=== PATIENT | female | born 1955 | race Caucasian/White ===

== ENCOUNTER → 2017-08-27 10:00 | Outpatient (CLI) | payer OTHER, SELFPAY ==
[2017-08-27 11:42] LABS: Anion Gap 6 (5-15); BUN 17 mg/dL (7-18); BUN/Creat Ratio 23.9 RATIO (10-20); Calcium,Total 9.9 mg/dL (8.5-10.1); Chloride 105 mmol/L (98-107); Creatinine, Serum 0.71 mg/dL (0.55-1.02); EST Glomerular Filtration Rate 88 mL/min (>60); Est Glom Filt Rate - Afr Amer 107 mL/min (>60); Glucose 102 mg/dL (74-106); Sodium Level 141 mmol/L (136-145); Thyroid Stim Hormone (TSH) 0.89 uIU/mL (0.358-3.74)
[2017-08-31 14:07] LABS: Epinephrine, Pl <15 pg/mL (0-62); Norepinephrine, Pl 764 pg/mL (0-874)
[2017-09-01 17:24] LABS: Dopamine, Pl <30 pg/mL (0-48)
== END ==
PROVIDERS: Family Provider Family Medicine; PCP Family Medicine; Visit Provider Internal Medicine Cardiovascular Disease
DX: R00.2 Palpitations (principal)
CPT/HCPCS: 36415; 80048; 82384; 84443

== ENCOUNTER 2017-10-13 00:53 | Emergency (ER) | payer OTHER, SELFPAY ==
[2017-10-13 00:54] VITALS: BP 119/58; PULSE 72; RESP 16; TEMP 36.8; O2SAT 100; BMI 18.0
--- NOTE | 2017-10-13 01:35 | ED.VISSUMM ---
- ER Visit Summary Date of Service: 10/13/17 Chief Complaint: Bites History of Present Illness: The patient is a 62 F with insect bites. The patient has one on her right proximal forearm associate with a bruise and muscle pain. There is also a smaller one on her left forearm and one on her left upper arm. The one in her upper arm has been there for months. No fever or systemic symptoms. She did feel a bug on her right forearm yesterday and it rolled away, but she never felt a bite. Physical Examination: Vital signs unremarkable. Patient has a hematoma and tenderness to her right proximal forearm about the size of a half dollar. She also has erythema to her left upper arm about the size of a dime. She is neurovascular intact distally. There are no other pertinent findings. Test Results: None indicated Emergency Department Course and Treatment: No indication for antibiotics. Nothing to suggest Lyme disease. The patient has a hematoma. She denies any injuries or muscle injuries. She did notice an insect. We will treat with a burst of prednisone to help with the discomfort. She may use [id number] remedies for pain. Follow-up with primary care. Return for any new or worsening issues. Treatment Plan: As above Disposition: Discharged Impression: 1. Insect bites to bilateral arms This note was generated with [facility] dictation software. It may contain incorrect words, spelling, and punctuation that were not noted in review of the chart prior to signing ED Disposition - Plan for ED Patient: Chief Complaint: Bite Referrals: Min Pugh MD [Primary Care Provider] -
--- NOTE | 2017-10-13 01:38 | ED.DCSUM_ITS ---
- ER Visit Summary Date of Service: 10/13/17 Chief Complaint: Bites History of Present Illness: The patient is a 62 F with insect bites. The patient has one on her right proximal forearm associate with a bruise and muscle pain. There is also a smaller one on her left forearm and one on her left upper arm. The one in her upper arm has been there for months. No fever or systemic symptoms. She did feel a bug on her right forearm yesterday and it rolled away, but she never felt a bite. Physical Examination: Vital signs unremarkable. Patient has a hematoma and tenderness to her right proximal forearm about the size of a half dollar. She also has erythema to her left upper arm about the size of a dime. She is neurovascular intact distally. There are no other pertinent findings. Test Results: None indicated Emergency Department Course and Treatment: No indication for antibiotics. Nothing to suggest Lyme disease. The patient has a hematoma. She denies any injuries or muscle injuries. She did notice an insect. We will treat with a burst of prednisone to help with the discomfort. She may use [id number] remedies for pain. Follow-up with primary care. Return for any new or worsening issues. Treatment Plan: As above Disposition: Discharged Impression: 1. Insect bites to bilateral arms This note was generated with [employer] dictation software. It may contain incorrect words, spelling, and punctuation that were not noted in review of the chart prior to signing ED Disposition - Plan for ED Patient: Chief Complaint: Bite Referrals: Min Pugh MD [Primary Care Provider] -
--- NOTE | 2017-10-13 01:38 | ED.DEP ---
ED Disposition - Plan for ED Patient: Chief Complaint: Bite Instructions: ED Bite Sting Insect Gen Allergic React Prescriptions: Prednisone 40 mg PO DAILY #16 tab Referrals: Min uPgh MD [Primary Care Provider] -
[2017-10-13] MEDS: predniSONE 20 MG Tablet 40 MG PO (01:45)
[2017-10-13 02:19] VITALS: RESP 16
== END 2017-10-13 02:22 | disposition home or self-care (01) ==
PROVIDERS: Emergency Provider Emergency Medicine; Family Provider Family Medicine; PCP Family Medicine
DX: S50.862A Insect bite (nonvenomous) of left forearm, initial encounter (principal); S50.861A Insect bite (nonvenomous) of right forearm, initial encounter; K21.9 Gastro-esophageal reflux disease without esophagitis; Z79.899 Other long term (current) drug therapy; W57.XXXA Bitten or stung by nonvenomous insect and other nonvenomous arthropods, initial encounter; Y93.89 Activity, other specified; Y92.89 Other specified places as the place of occurrence of the external cause; Y99.8 Other external cause status
CPT/HCPCS: 99283

== ENCOUNTER 2017-10-23 16:40 | Emergency (ER) | payer OTHER, SELFPAY ==
[2017-10-23 16:42] VITALS: BP 155/78; PULSE 83; RESP 16; TEMP 36.4; O2SAT 97; BMI 18.1
--- NOTE | 2017-10-23 17:01 | ED.VISSUMM ---
- ER Visit Summary Date of Service: 10/23/17 Chief Complaint: Concern for tetanus exposure History of Present Illness: The patient is a 62 F who is otherwise healthy presents to the emergency department due to concern for tetanus exposure. The patient has been vaccinated against tetanus. She did have a 3 injection series in 2011. The patient states that she was actually seen here about a week ago. At that time, she is working out in her garden at night. She was bit by something and thought that it may have been a mosquito. She had a local reaction. She did follow up with Dr. Pugh, but her symptoms really not improved. They were concerned that she may have had bad exposure. She is here for tetanus prophylaxis. She denies any symptoms. She is otherwise healthy. Physical Examination: Vital signs reviewed General: Well-nourished, well-developed Head: Normocephalic, atraumatic Eyes: Pupils equal and reactive, extraocular muscles intact Neck, supple, no lymphadenopathy Heart: Regular rate and rhythm Respiratory: No distress, clear bilaterally Abdomen: Soft, nontender, nondistended, no peritoneal signs Back: Nontender Extremities: Mild erythema with ecchymosis on the dorsum of the right forearm. No skin breakdown, no edema, no cords Skin: Normal color no rash Neuro: Alert and oriented, no focal or lateralizing deficits Test Results: [] Emergency Department Course and Treatment: The patient will be started on rabies prophylaxis. She has already been vaccinated so she will just need 2 doses. She is given her first dose here and will be brought back on Thursday for the second dose. She is totally asymptomatic. Patient is comfortable this plan of care and will be discharged home. Treatment Plan: [] Disposition: Discharge Impression: 1. Rabies prophylaxis This note was generated with [employer] dictation software. It may contain incorrect words, spelling, and punctuation that were not noted in review of the chart prior to signing ED Disposition - Plan for ED Patient: Chief Complaint: Other, Pain/Inj Instructions: Rabies Immune Globulin (Human) Solution for injection Prescriptions: Rabies Vacc, Human Diploid/Pf [Imovax Rabies Vaccine Vial] 2.5 unit IM X1 #1 vial Tetanus Immune Globulin/Pf [Hypertet S-D 250 Unit Syringe] 250 unit IM X1 #1 syringe Referrals: Min Pugh MD [Primary Care Provider] -
[2017-10-23] MEDS: Rabies Vaccine,Human Diploid 2.5 UNITS Vial IM (18:38)
== END 2017-10-23 18:45 | disposition home or self-care (01) ==
PROVIDERS: Emergency Provider Emergency Medicine; Family Provider Family Medicine; PCP Family Medicine
DX: Z20.3 Contact with and (suspected) exposure to rabies (principal); Z23 Encounter for immunization; S50.11XA Contusion of right forearm, initial encounter; X58.XXXA Exposure to other specified factors, initial encounter; Y93.9 Activity, unspecified; Y92.9 Unspecified place or not applicable
CPT/HCPCS: 90375; 90675; 96372; 99282; J1670

== ENCOUNTER → 2017-10-26 17:21 | Outpatient (CLI) | payer OTHER, SELFPAY ==
[2017-10-26 16:32] VITALS: BP 129/71; PULSE 83; RESP 16; TEMP 36.3; BMI 18.1
[2017-10-26] MEDS: Rabies Vaccine,Human Diploid 2.5 UNITS Vial IM (17:12)
[2017-10-26 17:17] VITALS: BP 129/74; PULSE 83; RESP 16; TEMP 36.3; BMI 18.1
== END ==
PROVIDERS: Family Provider Family Medicine; PCP Family Medicine; Visit Provider Emergency Medicine
DX: Z23 Encounter for immunization (principal)
CPT/HCPCS: 90675; 96372

== ENCOUNTER → 2018-03-17 13:27 | Outpatient (CLI) | payer OTHER, SELFPAY ==
--- NOTE | 2018-03-17 13:40 | RAD_ITS ---
STUDY: X-RAY - RIGHT HIP REASON FOR EXAM: Female, 62 years old. Trochanteric bursitis TECHNIQUE: 2 views of the hip. AP pelvis COMPARISON: None. FINDINGS: Pelvic ring is intact. Visualized left hip is unremarkable. There are vascular phleboliths of the left hemipelvis. Normal femoral head, neck, intertrochanteric region and visualized proximal femur. Normal acetabulum. Normal hip joint. Normal visualized superior and inferior pubic rami and ischial tuberosities. RAD/HIP, UNI W/ Pelvis 2-3 Views IMPRESSION: Normal x-ray examination of the right hip. Electronically Signed: Jeremiah Servin MD at 8:11 EST , Service support ,
== END ==
PROVIDERS: Family Provider Family Medicine; PCP Family Medicine; Referring Provider Family Medicine; Visit Provider Family Medicine
DX: M70.61 Trochanteric bursitis, right hip (principal)
CPT/HCPCS: 73502

== ENCOUNTER → 2018-08-10 | Outpatient (CLI) | payer OTHER, SELFPAY ==
[2018-08-10 13:32] LABS: AST(SGOT) 24 U/L (15-37); Alanine Aminotransfer ALT/SGPT 24 U/L (13-56); Alkaline Phosphatase 90 U/L (45-117); Bilirubin, Direct 0.17 mg/dL (0.00-0.30); Cholesterol 180 mg/dL (200); Globulin 3.4 g/dL (2.2-4.2); High Density Lipoprotein 78 mg/dL; Protein, Total 7.4 g/dL (6.4-8.2); Triglycerides 76 mg/dL; Very Low Density Lipoprotein 15 mg/dL (5-40)
== END | disposition home or self-care (01) ==
LOC: LAB 11:43
PROVIDERS: Family Provider Family Medicine; PCP Family Medicine; Referring Provider Internal Medicine Cardiovascular Disease; Visit Provider Internal Medicine Cardiovascular Disease
DX: R00.2 Palpitations (principal); Z82.49 Family history of ischemic heart disease and other diseases of the circulatory system
CPT/HCPCS: 36415; 80061; 80076

== ENCOUNTER → 2018-09-01 14:19 | Outpatient (CLI) | payer OTHER, SELFPAY ==
[2018-08-12 15:12] VITALS: BMI 18.4
[2018-09-01 14:46] VITALS: BP 111/55; PULSE 73; RESP 18; O2SAT 100; BMI 17.7
--- NOTE | 2018-09-01 14:51 | CT_ITS ---
STUDY: CT CHEST WITHOUT CONTRAST REASON FOR EXAM: Female, 63 years old. Chest pain. Calcium scoring examination. Radiology over read examination. RADIATION DOSAGE (If Supplied By Facility): CTDIvol = ( 24.64 ) mGy, DLP = ( 1046.17 ) mGycm TECHNIQUE: Transaxial imaging was performed without the administration of intravenous contrast material. Individualized dose optimization techniques were used for this CT. COMPARISON: Comparison is made with prior examination dated March 13, 2014. FINDINGS: Minimal increased markings at the lung bases suggestive of mild bibasilar scarring. There is no demonstrated pleural abnormality. Normal heart and pericardium. Normal mediastinum. Normal hilar regions. Normal unenhanced pulmonary arteries. Normal aorta arch and descending thoracic aorta. There are degenerative changes of the thoracic spine. There is no demonstrated abnormality of the visualized upper abdomen. CT/Limited Chest CT w/CCTA IMPRESSION: Findings suggestive of mild scarring at the lung bases. Electronically Signed: Leo Hagen, at 8:45 EDT , Service support ,
[2018-09-01 15:11] LABS: CREATININE FINGERSTICK 0.9 mg/dL (0.55-1.02); EGFR FINGERSTICK > 60.0000 mL/min (>60)
[2018-09-01] MEDS: 0.9% Saline Lock 10 ML Syringe IV (15:18)
[2018-09-01] MEDS: Nitroglycerin SL (ED/IMG/CATH) 0.4 MG TABLET SUBLINGUAL (15:20)
[2018-09-01 15:48] VITALS: BP 126/76; PULSE 61; RESP 16; O2SAT 100
--- NOTE | 2018-09-01 15:52 | NURSING ---
pt alert, still head headache, but states it is tolerable. pt walked out with significant other.
--- NOTE | 2018-09-01 16:55 | CA.SCORE ---
Calcium Scoring Date of Study:: 09/01/18 Coronary Calcium Scoring: High-resolution Computed Tomographic imaging of the chest was performed on [ ], with particular attention paid to the coronary arteries. Images from the examination were analyzed for the presence and extent of coronary artery calcification , using coronary calcium quantification software. The patient tolerated the procedure well and there were no complications. The results of the coronary calcification analysis are provided below. - Findings Left Main (LM): 0 Left Anterior Descending (LAD): 0 Left Circumflex (LCX): 0 Right Coronary Artery (RCA): 0 Total Agatston Score: 0 Percentile Rankin - Conclusion Calcium Scoring Interpretation: Calcium Score Interpretation 0 No identifiable atherosclerotic plaque. Very low cardiovascular disease risk. <5% chance of presence coronary artery disease A Negative Examination 1-10 Minimal Plaque burden. Significant coronary artery disease very unlikely. 11-100 Mild plaque burden. Likely mild or minimal coronary atherosclerosis. 101-400 Moderate plaque burden Moderate non-obstructive coronary artery disease highly likely. Over 400 Extensive plaque burden. High likelihood of at least one significant coronary stenosis (>50% diameter) Calcium Score: 0 Negative Examination - The above is suggestive of no significant atherosclerotic plaquing. Full evaluation of cardiac risk should include assessment of all conventional risk factors as well.
--- NOTE | 2018-09-01 17:28 | CCTA.WCONT ---
CCTA w/Cont Coronary Arteries Date of Study:: 09/01/[address] angiogram: The patient was brought to the radiology suite in the postabsorptive nonsedated state. The patient was administered sublingual nitroglycerin and then 100 cc of intravenous Isovue was injected. Particular attention was paid to the coronary arteries via gating. Images were then reconstructed into a 0.625 mm slices and reconfigured. Patient tolerated the procedure well. Results: Left main coronary artery: The left main coronary artery arose out of the left coronary cusp and trifurcates into the left anterior descending artery, ramus intermedius and left anterior descending artery. No significant stenosis or calcification was noted in this vessel. Left anterior descending artery: The left anterior descending artery was a medium sized vessel with no significant calcification or obstructive plaquing noted. Ramus intermedius: The ramus intermedius was a medium size vessel with no significant atherosclerotic plaquing all calcification noted. Left circumflex artery: Left circumflex artery was a nondominant vessel with no significant calcification or atherosclerotic plaquing noted. Right coronary artery: The right coronary artery was a large dominant vessel bifurcating to the posterior descending artery and posterolateral vessel with no significant stenosis noted. Coronary calcium score equals [address] angiogram demonstrating no obstructive coronary artery disease and a calcium score of 0. The above suggests minimal cardiac atherosclerosis and risk. LEFT MAIN CORONARY ARTERY: [] LEFT ANTERIOR DESCENDING CORONARY ARTERY: [] LEFT CIRCUMFLEX CORONARY ARTERY: [] RIGHT CORONARY ARTERY: [] THORACIC AORTA: [] PULMONARY ARTERY: [] LEFT ATRIUM/APPENDAGE: [] MITRAL VALVE: [] AORTIC VALVE: [] LEFT VENTRICLE: [] CORONARY CALCIUM SCORE: []
== END ==
PROVIDERS: Family Provider Family Medicine; PCP Family Medicine; Referring Provider Internal Medicine Cardiovascular Disease; Visit Provider Internal Medicine Cardiovascular Disease
DX: R07.9 Chest pain, unspecified (principal); Z82.49 Family history of ischemic heart disease and other diseases of the circulatory system
CPT/HCPCS: 75571; 75574; 76380; Q9967; A4216

== ENCOUNTER → 2019-02-16 | Outpatient (CLI) | payer OTHER, SELFPAY ==
[2018-09-01 14:46] VITALS: BMI 17.7
--- NOTE | 2019-02-16 08:26 | BD_ITS ---
STUDY: DUAL ENERGY X-RAY ABSORPTIOMETRY / DXA REASON FOR EXAM: Female, 63 years old. The patient is postmenopausal. Loss of height. TECHNIQUE: Bone Mineral Density (BMD) measurements of lumbar spine and bilateral hips were obtained. COMPARISON: None. FINDINGS: Lumbar Spine (L1-L4): g/cm2 (0.752) / T-score (-3.6) / Z-score (-2.0) Findings are suggestive of osteoporosis with a high fracture risk. Left Femur Total: g/cm2 (0.643) / T-score (-2.9) / Z-score (-1.7) Left Femoral Neck: g/cm2 (0.611) / T-score (-3.1) / Z-score (-1.6) Right Femur Total: g/cm2 (0.662) / T-score (-2.7) / Z-score (-1.6) Right Femoral Neck: g/cm2 (0.70 to) / T-score (-2.4) / Z-score (-1.0) BD/Dexa Bone Density Study IMPRESSION: The patient is considered osteoporotic as outlined below according to World Edwin Organization (WHO) criteria with a high fracture risk. Reference Information: The T-score is the number of standard deviations above or below the standard which is normal for young adults at their peak bone mineral density. The World Health Organization (WHO) interprets the T-scores as follows: Above -1 Normal bone density Between -1 and -2.5 Osteopenia Equal to / or below -2.5 Osteoporosis As a practical clinical guideline, osteopenia may be graded as follows: Mild -1 through -1.5 Moderate -1.6 through -2.0 Severe -2.1 through -2.4 The Z-score is the number of standard deviations above or below age-matched controls. A Z-score of less than -1.5 would be considered abnormal. References: 1. NIH Osteoporosis and Related Bone Diseases http://www.osteo.org 2. International Society for Clinical Densitometry http://www.iscd.org 3. National Osteoporosis Foundation http://www.nof.org Electronically Signed: Leo Hagen, at 9:56 EDT , Service support ,
== END | disposition home or self-care (01) ==
LOC: OPBD 08:21
PROVIDERS: Family Provider Family Medicine; PCP Family Medicine; Referring Provider Family Medicine; Visit Provider Family Medicine
DX: M81.0 Age-related osteoporosis without current pathological fracture (principal)
CPT/HCPCS: 77080

== ENCOUNTER 2019-04-07 14:48 | Observation (INO) | payer OTHER, SELFPAY ==
[2018-09-01 14:46] VITALS: BMI 17.7
[2019-04-07] VITALS (7 sets, daily range): BP systolic 116–152; BP diastolic 68–93; PULSE 63–81; RESP 16–20; TEMP 36.4; O2SAT 95–100; BMI 17.4; BMI 16.9
--- NOTE | 2019-04-07 15:09 | EKG12_ITS ---
Test Reason : UPPER EXEMITRY Blood Pressure : / mmHG Vent. Rate : 061 BPM Atrial Rate : 061 BPM P-R Int : 128 ms QRS Dur : 080 ms QT Int : 402 ms P-R-T Axes : 063 027 051 degrees QTc Int : 404 ms Normal sinus rhythm Low voltage QRS Cannot rule out Anterior infarct (cited on or before 21-JUN-2003) Abnormal ECG Confirmed by CHARISSA ANDERSON, FITO ([id number]), make up editor MIKE STEWART ([id number]) on 04/11/2019 11:37:05 AM Referred By: JOESPH Confirmed By:FITO CARRINGTON MD
--- NOTE | 2019-04-07 15:12 | ED.VISSUMM ---
- ER Visit Summary Date of Service: 04/07/19 Chief Complaint: Left arm pain History of Present Illness: The patient is a 63 F presenting with intermittent left arm pain. She states this has been intermittent for the past 2 days. She has had left shoulder pain radiating to her left arm. No pain with range of motion. She has associated dizziness and diaphoresis. She has mild shortness of breath. She denies chest pain. She had no syncope. She has nausea with no vomiting. She has family history of early heart disease, no other CAD risk factors. Physical Examination: Vitals are stable. Patient is afebrile. Alert no acute distress. HEENT exam is unremarkable. Neck is supple. Lungs are clear and equal bilaterally. Heart is regular rate and rhythm. Abdomen is soft nontender nondistended. Extremities are unremarkable. Skin is warm and dry. No focal neurologic deficit. Remainder of exam is unremarkable. Emergency Department Course and Treatment: Patient was given aspirin. EKG is sinus rhythm rate of 61 with no acute ischemic changes. Chest x-ray shows no acute process. CBC, chemistries unremarkable. Troponin is negative. On reevaluation, patient is chest pain-free. She is concerned that these symptoms may be anginal equivalent. Discussed with the hospitalist for observation. Disposition: Observation Impression: Left arm pain This note was generated with [employer] dictation software. It may contain incorrect words, spelling, and punctuation that were not noted in review of the chart prior to signing ED Disposition - Plan for ED Patient:
--- NOTE | 2019-04-07 15:13 | NURSING ---
NO OLD EKGS
--- NOTE | 2019-04-07 15:20 | RAD_ITS ---
STUDY: X-RAY CHEST REASON FOR EXAM: Female, 63 years old. Chest pain and shoulder pain. TECHNIQUE: Single AP portable view of the chest. COMPARISON: None. FINDINGS: EKG wires are seen. Hyperinflation. The lungs are clear. There is no demonstrated pleural abnormality. Normal size heart. Normal mediastinum and see. Normal visualized pulmonary arteries. Normal visualized aortic arch and descending thoracic aorta. There are mild degenerative changes of the visualized thoracic spine. Normal visualized ribs, clavicles, and shoulders. There is no demonstrated abnormality of the visualized soft tissue structures of the upper abdomen. RAD/Chest 1 View (Portable) IMPRESSION: Normal x-ray examination of the chest. Electronically Signed: Leo Hagen, at 15:38 EST , Service support ,
[2019-04-07] MEDS: Aspirin 81 MG TAB.CHEW 324 MG PO (15:28)
[2019-04-07 15:34] LABS: Absolute Lymphocyte Count 2.32 X10^3/uL (0.83-4.51); Basophil# 0.07 X10^3/uL; Basophil% 0.7 % (0-1); Eosinophil# 0.19 X10^3/uL; Hematocrit 41.5 % (37-47); Hemoglobin 13.7 g/dL (12.0-15.0); Lymphocyte # 2.32 X10^3/ul (4.0); Lymphocyte % 24.7 % (19-41); Mean Corpuscular Hgb 29.6 pg (27.0-32.0); Mean Corpuscular Volume 89.6 fL (81-99); Mean Platelet Vol. 8.6 fl (6.2-12.0); Monocyte# 0.83 X10^3/uL; Monocyte% 8.8 % (0-10); NRBC Flagged by Analyzer 0 % (0-5); Neutrophil # 5.96 X10^3/uL (2.7-7.7); Neutrophil % 63.5 % (47-70); Platelet Count 341 K/mm3 (150-450); RBC Distribution Width CV 12.8 % (11.6-14.6); RBC Distribution Width SD 41.5 fl (35.1-43.9); Red Blood Count 4.63 M/mm3 (4.2-5.4); White Blood Count 9.4 K/mm3 (4.4-11.0)
[2019-04-07 16:11] LABS: Anion Gap 3 (5-15); BUN 16 mg/dL (7-18); BUN/Creat Ratio 21.3 RATIO (10-20); Calcium,Total 9.8 mg/dL (8.5-10.1); Chloride 108 mmol/L (98-107); Creatinine, Serum 0.75 mg/dL (0.55-1.02); EST Glomerular Filtration Rate 82 mL/min (>60); Est Glom Filt Rate - Afr Amer 100 mL/min (>60); Estimated Creatinine Clearance 56.82 ml/min; Glucose 88 mg/dL (74-106); Potassium 3.9 mmol/L (3.5-5.1); Sodium Level 141 mmol/L (136-145)
--- NOTE | 2019-04-07 17:21 | CT_ITS ---
STUDY: CTA HEAD AND NECK WITH CONTRAST REASON FOR EXAM: Female, 63 years old. Headache RADIATION DOSAGE (If Supplied By Facility): CTDIvol = ( 23.18 ) mGy, DLP = ( 1189.91 ) mGycm TECHNIQUE: CT angiography was performed with a multi-detector CT scanner. Data acquisition was obtained from the skull base through the vertex following intravenous administration of [id number] [id number]. MIP images were reconstructed from the axial data set. Post-processing of the angiographic images was performed, with multiplanar reformation and 3D reconstruction. Individualized dose optimization techniques were used for this CT. COMPARISON: No relevant priors. FINDINGS: Normal bilateral petrous carotid arteries. Normal right cavernous carotid artery with a normal supraclinoid bifurcation. Normal left cavernous carotid artery with a normal supraclinoid bifurcation. Normal right A1 segments of the anterior cerebral artery. Normal left A1 segments of the anterior cerebral artery. Normal intact anterior communicating artery (ACOM). Normal bilateral A2 segments of the anterior cerebral arteries. Normal right M1 and M2 segments of the middle cerebral arteries, with a normal M1 bifurcation. Normal left M1 and M2 segments of the middle cerebral arteries, with a normal M1 bifurcation. Nonvisualization of the posterior communicating arteries (PCOM). Normal bilateral vertebral arteries. Normal basilar artery with a normal basilar bifurcation. The visualized bilateral superior cerebellar (SCA) arteries are normal. Normal bilateral P1, P2 and visualized P3 segments of the posterior cerebral arteries. There is no demonstrated aneurysm of the [place] of [place]. There is no demonstrated abnormality of the visualized brain. AORTIC ARCH: Normal visualized aortic arch. Normal origins of the brachiocephalic, left common carotid, and left subclavian arteries. RIGHT CAROTID ARTERIES: Normal right common carotid artery (CCA). Normal right common carotid bulb. Normal origin of the right internal carotid (ICA) artery without a hemodynamically significant stenosis. Normal visualized cervical portion of the right internal carotid artery. Normal origin of the right external carotid artery (ECA). LEFT CAROTID ARTERIES: Normal left common carotid artery (CCA). Normal left common carotid bulb. Normal origin of the left internal carotid (ICA) artery without a hemodynamically significant stenosis. Normal visualized cervical portion of the left internal carotid artery. Normal origin of the left external carotid artery (ECA). VERTEBRAL ARTERIES: Normal bilateral vertebral arteries. CT/CTA Head AND Neck W/ Contrast IMPRESSION: Normal CTA Head and neck with contrast. Electronically Signed: Rocky Tse DO at 19:53 EST Tel [phone], Service support ,
--- NOTE | 2019-04-07 17:40 | PCM.HP.STD ---
<Lamont Yates - Last Filed: 04/07/19 17:40> Problem List (1) Left arm numbness Status: Acute (2) Migraine Status: Chronic (3) Osteoporosis Status: Chronic History of Present Illness Date of Admission: 04/07/19 Chief Complaint: Left arm numbness The patient is a 63 year old F with a hx of migraine and osteoporosis who presented to the ER with c/o left sided shoulder blade pain with radiation into the left arm, and numbness of the left arm. She has had these symptoms since thursday. They happen in the morning and resolved by noon, however today they did not go away and were worse, prompting her to go to the ER. She also had lightheadedness and heavy sweats during these episodes. She has also had migraines increasing in frequency and recently states she had the worst headache of her life. She currently has a dull pain in the BL temples. Sometimes she has light sensitivity, nausea, and visual disturbances with her migraines. She does not see a neurologist and self treats with advil and caffeine. She and her also report severe stress over the past two months. She denies any chest pain or SOB. She follows Dr. Varner because she has a family hx of her dad dying suddenly without warning of a heart attack, and a brother who had an NV at 54. She had a negative stress 3 years ago, and had a coronary CTA earlier this year which she states was normal. [] Past Medical History Past Medical History (Chronic Problems): Chronic Problems (Last Reviewed 08/12/18 @ 15:45 by Raj Varner MD) Osteoporosis (Chronic) Migraine (Chronic) Family history of coronary artery disease (Chronic) Palpitations (Chronic) Medical History: Medical History (Last Reviewed 08/12/18 @ 15:45 by Raj Varner MD) Family history of coronary artery disease (Chronic) Z82.49 Palpitations (Chronic) R00.2 Anxiety F41.9 IBS (irritable bowel syndrome) K58.9 Allergies Penicillins Adverse Reaction (Verified 04/07/19 14:49) rash sulfamethoxazole [From Bactrim] Adverse Reaction (Verified 04/07/19 14:49) rash trimethoprim [From Bactrim] Adverse Reaction (Verified 04/07/19 14:49) rash Home Medications: Ambulatory Orders Medication Instructions Recorded calcium carbonate 500 mg calcium 1,000 mg PO DAILY tab 08/12/18 (1,250 mg) chewable tablet Alendronate Sodium [Fosamax] 70 mg PO TU 04/07/19 Cholecalciferol (VIT D3) [Vitamin 1,000 - 2,000 unit PO DAILY 04/07/19 D] Ibuprofen [Advil] 400 mg PO DAILY PRN PRN 04/07/19 Surgical History: no surgical history Psychiatric History: 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 Denies: Chest Pain, Chest Pressure, Chest Tightness, Edema, Heaviness, Palpitations Respiratory: Denies: Cough, Shortness of breath at rest, Sputum production Gastrointestinal: Denies: Abdominal Pain, Nausea, Vomiting Genitourinary: Denies: Dysuria Musculoskeletal: Denies: Joint Pain, Joint Tenderness Skin: Denies: Rash, Wounds Neurological: Reports: Headaches, Numbness - left arm. Denies: Blurred vision, Double vision, Change in Speech, Slurred speech, Confusion, Focal weakness, Tingling, Seizures Psychiatric: Denies: Anxiety, Depression, Homicidal Ideations, Suicidal Ideations Hematologic/ Lymphatic: Denies: Easy Bruising, Easy Bleeding VTE Information - Inpt Only VTE Present on Admission: No VTE Mechan Device Prophylaxis: None VTE Pharm Prophylaxis ordered?: Yes Patient Problems: Active and Suspected Problems (Last Reviewed 08/12/18 @ 15:45 by Raj Varner MD) Left arm numbness (Acute) - Physical Exam Vitals/I&O's: Vital Signs Temp Pulse Resp BP Pulse Ox 97.5 F L 71 16 152/93 H 97 04/07/19 14:49 04/07/19 16:56 04/07/19 16:56 04/07/19 16:56 04/07/19 16:56 Oxygen Delivery Method Room Air Weight: 104 lb 11.513 oz Body Mass Index (BMI) 17.4 General: Alert, Oriented x3, Cooperative HEENT: Atraumatic, PERRLA, EOMI, Normocephalic Neck: Supple, No JVD, Negative Carotid Bruits Lungs: Clear to auscultation, Normal air movement Cardiovascular: Regular rate, No murmurs Abdomen: Bowel Sounds Present, Soft, Non Tender Extremities: No edema, Capillary Refill Less than 3 Seconds Skin: No rashes, No breakdown Musculoskeletal: No Tenderness to Palpation of Joints or Extremities Neurological: Cranial nerves II-XII grossly intact Psych/Mental Status: Normal Affect, Appropriate, Alert and oriented to time, place, person, mood and affect Laboratory Results 04/07/19 15:20: WBC 9.4, RBC 4.63, Hgb 13.7, Hct 41.5, MCV 89.6, MCH 29.6, MCHC 33.0, RDW Std Deviation 41.5, RDW Coeff of Atif 12.8, Plt Count 341, MPV 8.6, Immature Gran % (Auto) 0.300, Neut % (Auto) 63.5, Lymph % (Auto) 24.7, [place] % (Auto) 8.8, Eos % (Auto) 2.0, Baso % (Auto) 0.7, Absolute Neuts (auto) 6.0, Absolute Lymphs (auto) 2.32, Nucleated RBC % 0 04/07/19 15:20: Sodium 141, Potassium 3.9, Chloride 108 H, Carbon Dioxide 30.0, Anion Gap 3 L, BUN 16, Creatinine 0.75, Estim Creat Clear Calc 56.82, Est GFR (MDRD) Af Amer 100, Est GFR (MDRD) Non-Af 82, BUN/Creatinine Ratio 21.3 H, Glucose 88, Calcium 9.8, Troponin I < 0.015 Assessment/Plan All Active Problems (Last Reviewed 08/12/18 @ 15:45 by Raj Varner MD) Left arm numbness (Acute) 1. Left arm numbness, headache - suspicious for tia. check CT brain, followed by CTA head and neck. 2. Shoulder pain with left arm pain/numbness - EKG negative. trop negative. cycle enzymes, repeat EKG in AM. No hx CAD. Last stress 3 years ago negative. Strong family hx of CAD. 3. Migraine - complex migraine is also in the differential. Self treats with caffeine and advil, she does not have a neurologist. Recommend o/p referral to pulm. 4. Osteoporosis - on o/p alendronate therapy, vit D, calcium. DVT ppx: lovenox This patient was seen by Lamont Yates PA-C under the supervision of Dr. Garcia. <Georgette Garcia - Last Filed: 04/07/19 19:06> History of Present Illness The patient is a 63 year old F [] Past Medical History Medical History: Medical History (Last Reviewed 08/12/18 @ 15:45 by Raj Varner MD) Family history of coronary artery disease (Chronic) Z82.49 Palpitations (Chronic) R00.2 Anxiety F41.9 IBS (irritable bowel syndrome) K58.9 Allergies Penicillins Adverse Reaction (Verified 04/07/19 14:49) rash sulfamethoxazole [From Bactrim] Adverse Reaction (Verified 04/07/19 14:49) rash trimethoprim [From Bactrim] Adverse Reaction (Verified 04/07/19 14:49) rash - *Family History Maternal Family History: Family History (Last Reviewed 04/07/19 @ 17:49 by JERI Goldstein) Father Heart disease Myocardial infarction Mother CVA (cerebral vascular accident) Brother Heart disease Myocardial infarction - Physical Exam Vitals/I&O's: Vital Signs Temp Pulse Resp BP Pulse Ox 97.5 F L 69 20 H 133/75 H 95 04/07/19 14:49 04/07/19 18:01 04/07/19 18:01 04/07/19 18:01 04/07/19 18:01 Oxygen Delivery Method Room Air Weight: 47.5 kg Body Mass Index (BMI) 17.4 Laboratory Results 04/07/19 15:20: WBC 9.4, RBC 4.63, Hgb 13.7, Hct 41.5, MCV 89.6, MCH 29.6, MCHC 33.0, RDW Std Deviation 41.5, RDW Coeff of Atif 12.8, Plt Count 341, MPV 8.6, Immature Gran % (Auto) 0.300, Neut % (Auto) 63.5, Lymph % (Auto) 24.7, [place] % (Auto) 8.8, Eos % (Auto) 2.0, Baso % (Auto) 0.7, Absolute Neuts (auto) 6.0, Absolute Lymphs (auto) 2.32, Nucleated RBC % 0 04/07/19 15:20: Sodium 141, Potassium 3.9, Chloride 108 H, Carbon Dioxide 30.0, Anion Gap 3 L, BUN 16, Creatinine 0.75, Estim Creat Clear Calc 56.82, Est GFR (MDRD) Af Amer 100, Est GFR (MDRD) Non-Af 82, BUN/Creatinine Ratio 21.3 H, Glucose 88, Calcium 9.8, Troponin I < 0.015 Assessment/Plan This patient was seen in conjunction with JERI Goldstein. I have independently interviewed and examined the patient and reviewed pertinent historical, laboratory, and other data. Please refer to JERI Goldstein note for his patient's presentation, findings, and recommendations. I have reviewed and his note and concur with his documentation 63-year-old female with past medical history of complex migraines comes in with intermittent left arm numbness ongoing over the past 5 days. She has a strong family history of cardiac events. She denied any chest pain but has multiple complaints starting from bilateral temporal throbbing pain, assisted with a left tingling and numbness which starts as sharp to dull and is associated with some subjective fever of the head and upper extremities radiating down to her lower extremities. She has some nausea with it but no vomiting. Denied any neck pain. Denied any trauma. These events started in the morning and usually resolve by noon. They however did not go away today and called your primary cardiology office and student ministries director was out of the office. Patient was recommended to come to the emergency room. She denied any visual disturbances or light sensitivity. She has not seen a neurologist before. She admits to being under severe stress at work. Physical Exam: Gen: Comfortable, appears anxious, not pale, not jaundiced CVS:HS I +II, regular, no murmurs RESP: CTA GI: BS present and normal, soft, nontender, no palpable organs EXT:No edema ASSESSMENT: 1. Left sided upper extremity numbness and tingling, suggestive of possible TIA 2. Complex migraine 3. Osteoporosis Plan: We will follow-up on CT of the head as well as CT of the head and neck in the ED MRI of brain in a.m. Stress test in am Code Visit OBSV E&M: [id number] Initial observation care L3
[2019-04-08] VITALS (8 sets, daily range): BP systolic 106–125; BP diastolic 52–81; PULSE 64–76; RESP 16–18; TEMP 36.6–36.9; O2SAT 94–98; BMI 16.9
[2019-04-08 03:30] LABS: Absolute Lymphocyte Count 2.83 X10^3/uL (0.83-4.51); Absolute Neutrophil Count 4.5 X10^3/uL (2.0-7.7); Basophil% 1.1 % (0-1); Eosinophil# 0.37 X10^3/uL; Eosinophils% 4.2 % (0-5); Hematocrit 37.7 % (37-47); Hemoglobin 12.5 g/dL (12.0-15.0); Lymphocyte # 2.83 X10^3/ul (4.0); Lymphocyte % 32.3 % (19-41); Mean Corp Hgb Conc 33.2 g/dL (32-36); Mean Corpuscular Hgb 29.4 pg (27.0-32.0); Mean Corpuscular Volume 88.7 fL (81-99); Mean Platelet Vol. 8.6 fl (6.2-12.0); Monocyte# 0.93 X10^3/uL; Monocyte% 10.6 % (0-10); NRBC Flagged by Analyzer 0 % (0-5); Neutrophil % 51.5 % (47-70); Platelet Count 316 K/mm3 (150-450); RBC Distribution Width CV 12.7 % (11.6-14.6); RBC Distribution Width SD 40.9 fl (35.1-43.9); Red Blood Count 4.25 M/mm3 (4.2-5.4); White Blood Count 8.8 K/mm3 (4.4-11.0)
[2019-04-08 04:01] LABS: AST(SGOT) 16 U/L (15-37); Alanine Aminotransfer ALT/SGPT 24 U/L (13-56); Albumin, Serum 3.3 g/dL (3.2-5.0); Alkaline Phosphatase 85 U/L (45-117); Anion Gap 5 (5-15); BUN 15 mg/dL (7-18); Calcium,Total 8.8 mg/dL (8.5-10.1); Chloride 109 mmol/L (98-107); Cholesterol 163 mg/dL (200); EST Glomerular Filtration Rate 107 mL/min (>60); Est Glom Filt Rate - Afr Amer 129 mL/min (>60); Estimated Creatinine Clearance 69.12 ml/min; Globulin 3.2 g/dL (2.2-4.2); Glucose 101 mg/dL (74-106); High Density Lipoprotein 66 mg/dL; Potassium 3.9 mmol/L (3.5-5.1); Protein, Total 6.5 g/dL (6.4-8.2); Sodium Level 143 mmol/L (136-145); Triglycerides 101 mg/dL; Very Low Density Lipoprotein 20 mg/dL (5-40)
--- NOTE | 2019-04-08 05:55 | MRI_ITS ---
STUDY: MRI BRAIN WITHOUT CONTRAST REASON FOR EXAM: Female, 63 years old. L arm/shoulder numbness, migraines TECHNIQUE: Standardized multiplanar fat and water weighted pulse sequences were obtained. COMPARISON: Head CTA dated April 07, 2019 FINDINGS: There is mild cerebral atrophy with widening of the extra-axial spaces and ventricular dilatation. There are a limited number of small white matter hyperintensities, distributed throughout the deep white matter tracts of the cerebral hemispheres, consistent with mild chronic white matter ischemic changes. There is no evidence for recent intracranial ischemia or other cause of cytotoxic edema on diffusion weighted imaging (DWI). Normal T2* images of the brain without demonstrated susceptibility artifact. There is no demonstrated hemosiderin stain. No hydrocephalus. No midline shift. Normal bilateral basal ganglia. Normal thalami. There is no extra-axial fluid accumulation. Normal flow voids within the major intracranial circulation suggesting patency by spin echo criteria. Normal sella turcica, pituitary gland, infundibular stalk, optic chiasm and hypothalamus. Normal tectal plate and pineal gland. Normal midbrain, consuelo and medulla. Normal cerebellum. Normal basal cisterns. Normal bilateral temporal bones. Normal bilateral internal auditory canals. No demonstrated orbital abnormality, within the constraints of a routine brain study. Normal visualized paranasal sinuses. Normal calvarium and skull base. Normal visualized soft tissue structures. Normal visualized upper cervical spine. MRI/Brain without Contrast IMPRESSION: 1. Mild chronic evolution old and ischemic changes of the brain, as described above. Electronically Signed: Andrea Quintana MD at 15:04 EST , Service support ,
[2019-04-08] MEDS: Aspirin 81 MG TAB.CHEW PO (06:09)
--- NOTE | 2019-04-08 10:50 | NURSING ---
Meds, VSA & NIHSS late d/t pt being off floor for testing
[2019-04-08] MEDS: Calcium Carbonate 500 MG Tablet 1000 MG PO (11:07)
[2019-04-08] MEDS: Enoxaparin 40 MG/0.4 ML Syringe SC (11:07)
--- NOTE | 2019-04-08 11:12 | STRESSREP ---
Stress Test Report Date: 04-08-19 Procedure: Exercise tolerance test/imaging study Indications: Chest pain Consent: Per the patient Procedure: The patient exercised on a Tobin protocol for 9 minutes completing Stage III achieving a peak heart rate of 150 bpm (96 % predicted maximal heart rate) with a peak blood pressure 160/52 mmHg and a peak MET capacity of 10 METs. The baseline ECG demonstrated normal sinus rhythm; poor R wave progression. The peak exercise ECG demonstrated motion artifact with no obvious ECG changes. There was a rare PVC during exercise. The functional capacity was considered good. There was no complaint of chest discomfort during exercise or recovery. The examination was discontinued secondary to dyspnea. Impression: 1. Technically adequate (percent predicted maximal heart rate greater than 85%) exercise tolerance test 2. Peak exercise ECG with somatic/motion artifact with no obvious ECG changes 3. There was a rare PVC during exercise 4. Nuclear images pending Myocardial perfusion imaging study: Technique: The patient was injected with 12.0 mCi of technetium 99m Cardiolite and subsequently rest SPECT Cardiolite nuclear imaging was obtained in the horizontal long, vertical long, and short axis views. The patient exercised on a Tobin protocol for 9 minutes completing Stage III achieving a peak heart rate of 150 bpm (96 % predicted maximal heart rate) with a peak blood pressure 160/52 mmHg and a peak MET capacity of 10 METs. The patient was injected with 35.0 mCi of technetium 99m Cardiolite and subsequently stress SPECT Cardiolite nuclear imaging was obtained in the horizontal long, vertical long, and short axis views. A gated Cardiolite study at peak stress was obtained. Interpretation: Rest and stress SPECT Cardiolite nuclear imaging status post realignment, normalization, and attenuation correction, demonstrates the appearance of relative uniform tracer uptake and myocardial perfusion appearing within normal limits. There is end systolic thickening and brightening. The gated Cardiolite study demonstrates myocardial thickening and inward wall motion. The reported LVEF is 80 %. Impression: 1. Rest and stress SPECT Cardiolite nuclear imaging demonstrate relative uniform tracer uptake and myocardial perfusion appearing within normal limits. 2. The gated Cardiolite study reports an LVEF of 80 %. This note was generated with [employer] software. It may contain incorrect words, spelling, and punctuation that were not noted in checking the note before signing.
--- NOTE | 2019-04-08 11:57 | DCINST_ITS ---
- Discharge Diagnoses Current Active Problems: Current Active and Chronic Problems (Last Reviewed 08/12/18 @ 15:45 by Raj Varner MD) Osteoporosis (Chronic) Migraine (Chronic) Left arm numbness (Acute) You will use the following diet at home:: No restrictions Your food should be the consistency of: Regular Your liquids should be the consistency of: Regular/Thin Discharge Activity: Return to Normal Activity Allergies/Adverse Reactions: Allergies Penicillins Adverse Reaction (Verified 04/07/19 14:49) rash sulfamethoxazole [From Bactrim] Adverse Reaction (Verified 04/07/19 14:49) rash trimethoprim [From Bactrim] Adverse Reaction (Verified 04/07/19 14:49) rash Medications to take at Discharge calcium carbonate 500 mg calcium (1,250 mg) chewable tablet 1,000 mg PO DAILY tab 08/12/18 Alendronate Sodium [Fosamax] 70 mg PO QWEEK 04/07/19 Cholecalciferol (VIT D3) [Vitamin D3] 1,000 - 2,000 unit PO DAILY 04/07/19 Ibuprofen [Advil] 400 mg PO DAILY PRN PRN 04/07/19 Primary Care Physician: Min Reyes MD [Primary Care Provider] - Please follow up with your Primary Care Physician in: 1-2 week Test Results: Test results from this visit will be discussed in further detail at your follow- up appointment, if applicable. Proposed Discharge Date: 04/08/19
--- NOTE | 2019-04-08 15:19 | PCM.DC.SUM ---
<Lamont Yates - Last Filed: 04/08/19 15:19> Discharge Date and Diagnosis Date of Admission: 04/07/19 Date of Discharge: 04/08/19 - Primary Discharge Diagnosis Active and Suspected Problems Left arm pain, numbness: musculoskeletal Migraines Hx osteoporosis - Secondary Discharge Diagnosis Chronic Problems (Last Reviewed 08/12/18 @ 15:45 by Raj Varner MD) Osteoporosis (Chronic) Migraine (Chronic) Family history of coronary artery disease (Chronic) Palpitations (Chronic) Hospital Course and Treatment Imaging Results: DIAGNOSTICS: RAD/Chest 1 View (Portable) IMPRESSION: Normal x-ray examination of the chest. CT/CTA Head AND Neck W/ Contrast IMPRESSION: Normal CTA Head and neck with contrast. MRI/Brain without Contrast IMPRESSION: 1. Mild chronic evolution old and ischemic changes of the brain, as described above. STRESS TEST: Impression: 1. Rest and stress SPECT Cardiolite nuclear imaging demonstrate relative uniform tracer uptake and myocardial perfusion appearing within normal limits. 2. The gated Cardiolite study reports an LVEF of 80 %. Operations: None Procedures: Stress test Summary of Care Provided: Hospital course: The patient is a 63 year old F with past medical history of osteoporosis and migraines, who presented to the emergency room with complaints of left-sided scapular pain with pain radiating into her left arm with associated numbness and tingling, associated diaphoresis. She is also been having increased frequency of migraines recently with bilateral temporal pain, and nausea. Her scapular pain arm pain and numbness occurred in the morning and would resolve usually by noon. The day of presentation it was worse and did not resolve by noon. She had a strong family history of coronary artery disease, and a mother who of a brain bleed. In the emergency room she had negative EKG, negative troponin, and negative chest x-ray. There is a concern for both possible anginal equivalent and strokelike symptoms. She was admitted to the PCU on telemetry. She had no events on telemetry overnight. Troponin was repeated and was negative x3. She underwent a stress test the following morning which was negative. She underwent a CTA of the head and neck which was negative, followed by an MRI of the brain which showed chronic changes. Her symptoms were felt to be related to musculoskeletal pain. Patient was discharged home in stable condition. She was advised to follow-up with her PCP in 1 to 2 weeks. This patient was seen by Lamont Yates PA-C under the supervision of Doctor [place]. [] - Physical Exam Vitals/I&O's: Vital Signs Temp Pulse Resp BP Pulse Ox 97.8 F 74 16 121/67 H 94 04/08/19 14:47 04/08/19 14:59 04/08/19 14:47 04/08/19 14:47 04/08/19 14:47 Oxygen Delivery Method Room Air Weight: 101 lb 14.4 oz Body Mass Index (BMI) 16.9 Intake and Output for Last 24 Hours 04/06/19 04/07/19 04/08/19 23:59 23:59 23:59 Intake Total 250 / 250 360 / 360 Balance 250 / 250 360 / 360 General: Alert, Oriented x3, Cooperative HEENT: Atraumatic, PERRLA, EOMI, Normocephalic Neck: Supple, No JVD, Negative Carotid Bruits Lungs: Clear to auscultation, Normal air movement Cardiovascular: Regular rate, No murmurs Abdomen: Bowel Sounds Present, Soft, Non Tender Extremities: No edema, Capillary Refill Less than 3 Seconds Skin: No rashes, No breakdown Musculoskeletal: No Tenderness to Palpation of Joints or Extremities Neurological: Cranial nerves II-XII grossly intact Psych/Mental Status: Normal Affect, Appropriate Laboratory Results 04/07/19 15:20: WBC 9.4, RBC 4.63, Hgb 13.7, Hct 41.5, MCV 89.6, MCH 29.6, MCHC 33.0, RDW Std Deviation 41.5, RDW Coeff of Atif 12.8, Plt Count 341, MPV 8.6, Immature Gran % (Auto) 0.300, Neut % (Auto) 63.5, Lymph % (Auto) 24.7, [place] % (Auto) 8.8, Eos % (Auto) 2.0, Baso % (Auto) 0.7, Absolute Neuts (auto) 6.0, Absolute Lymphs (auto) 2.32, Nucleated RBC % 0 04/07/19 15:20: Sodium 141, Potassium 3.9, Chloride 108 H, Carbon Dioxide 30.0, Anion Gap 3 L, BUN 16, Creatinine 0.75, Estim Creat Clear Calc 56.82, Est GFR (MDRD) Af Amer 100, Est GFR (MDRD) Non-Af 82, BUN/Creatinine Ratio 21.3 H, Glucose 88, Calcium 9.8, Troponin I < 0.015 04/07/19 20:52: Troponin I < 0.015 04/08/19 00:00: Troponin I < 0.015 04/08/19 03:10: WBC 8.8, RBC 4.25, Hgb 12.5, Hct 37.7, MCV 88.7, MCH 29.4, MCHC 33.2, RDW Std Deviation 40.9, RDW Coeff of Atif 12.7, Plt Count 316, MPV 8.6, Immature Gran % (Auto) 0.300, Neut % (Auto) 51.5, Lymph % (Auto) 32.3, [place] % (Auto) 10.6 H, Eos % (Auto) 4.2, Baso % (Auto) 1.1 H, Absolute Neuts (auto) 4.5, Absolute Lymphs (auto) 2.83, Nucleated RBC % 0 04/08/19 03:10: Sodium Cancelled, Potassium Cancelled, Chloride Cancelled, Carbon Dioxide Cancelled, Anion Gap Cancelled, BUN Cancelled, Creatinine Cancelled, Estim Creat Clear Calc Cancelled, Est GFR (MDRD) Af Amer Cancelled, Est GFR (MDRD) Non-Af Cancelled, BUN/Creatinine Ratio Cancelled, Glucose Cancelled, Calcium Cancelled, Total Bilirubin Cancelled, AST Cancelled, ALT Cancelled, Alkaline Phosphatase Cancelled, Total Protein Cancelled, Albumin Cancelled, Globulin Cancelled, Albumin/Globulin Ratio Cancelled, Triglycerides Cancelled, Cholesterol Cancelled, LDL Cholesterol Cancelled, VLDL Cholesterol Cancelled, HDL Cholesterol Cancelled 04/08/19 03:10: Sodium 143, Potassium 3.9, Chloride 109 H, Carbon Dioxide 29.0, Anion Gap 5, BUN 15, Creatinine 0.60, Estim Creat Clear Calc 69.12, Est GFR (MDRD) Af Amer 129, Est GFR (MDRD) Non-Af 107, BUN/Creatinine Ratio 25.0 H, Glucose 101, Calcium 8.8, Total Bilirubin 0.50, AST 16, ALT 24, Alkaline Phosphatase 85, Troponin I < 0.015, Total Protein 6.5, Albumin 3.3, Globulin 3.2, Albumin/Globulin Ratio 1.0, Triglycerides 101, Cholesterol 163, LDL Cholesterol 77, VLDL Cholesterol 20, HDL Cholesterol 66 Current Medications Acetaminophen (Tylenol) 650 mg PO Q6H PRN PRN PRN Reason: Pain Score 1-3/Temp > 100.7 F Aspirin (Aspirin, Baby) 81 mg PO DAILY@0800 [facility] Last Admin: 04/08/19 06:09 Dose: 81 mg Documented by: Calcium Carbonate (Tums) 1,000 mg PO DAILYCM [facility] Last Admin: 04/08/19 11:07 Dose: 1,000 mg Documented by: Enoxaparin Sodium (Lovenox) 40 mg SC DAILY [facility] Last Admin: 04/08/19 11:07 Dose: 40 mg Documented by: Sodium Chloride () 250 mls @ 15 mls/hr IV .[id number] PRN PRN Reason: Saline Flush Nitroglycerin (Nitrostat) 0.4 mg SUBLINGUAL Q5M PRN PRN Reason: CARDIAC/CHEST PAIN Ondansetron HCl (Zofran) 4 mg IV Q8H PRN PRN PRN Reason: NAUSEA/VOMITING Sodium Chloride () 10 - 40 ml IV UD PRN PRN Reason: SALINE FLUSH Discharge Diet: No Restrictions Discharge Activity: Return to Normal Activity Home Medications: Medications to take at Discharge calcium carbonate 500 mg calcium (1,250 mg) chewable tablet 1,000 mg PO DAILY tab 08/12/18 Alendronate Sodium [Fosamax] 70 mg PO QWEEK 04/07/19 Cholecalciferol (VIT D3) [Vitamin D3] 1,000 - 2,000 unit PO DAILY 04/07/19 Ibuprofen [Advil] 400 mg PO DAILY PRN PRN 04/07/19 Primary Care Physician: Min Reyes MD [Primary Care Provider] - Please follow up with your Primary Care Physician in: 1-2 week Please Follow Up With: Min Reyes MD Disposition: Home Minutes spent on discharge:: 35 Patient Condition:: Stable Medical Necessity - Tobacco Use Smoking Status: Never smoker Tobacco Use: Non-smoker Meaningful Use Info Meaningful Use Diagnoses (Choose all that apply): None applicable <Antionette Ho E - Last Filed: 04/09/19 11:09> Discharge Date and Diagnosis - Secondary Discharge Diagnosis Chronic Problems (Last Reviewed 08/12/18 @ 15:45 by Raj Varner MD) Osteoporosis (Chronic) Migraine (Chronic) Family history of coronary artery disease (Chronic) Palpitations (Chronic) Hospital Course and Treatment Summary of Care Provided: Hospitalist note: Discharge summary above reviewed and I concur with the above discharge and treatment plan. Patient was admitted for left shoulder radiates down to left upper arm pain and associated with numbness and tingling as well as diaphoresis. Her EKG revealed no acute changes. Troponin was negative. Patient complained of significant headache and she had a history of migraine. CTA of the head and neck done and the was normal without evidence of hemodynamically significant vascular disease or stenosis. Because of the severity of the headache, MRI brain done and showed no evidence of acute infarct or hemorrhage. Troponin was negative x3. Routine blood work was unremarkable. Patient underwent nuclear stress test that was normal without evidence of stress-induced myocardial ischemia. ACS and stroke ruled out. Patient symptoms attributed to musculoskeletal pain and migraine. Patient discharged home in a stable condition, discharged on her previous medications without any changes, recommended follow-up with PCP in 1 to 2 weeks. - Physical Exam General: Alert, Oriented x3, Cooperative, No apparent distress. HEENT: Atraumatic, PERRLA, EOMI. Neck: Supple, No JVD, Negative Carotid Bruits, Trachea Midline, Thyroid Normal. Lungs: Clear to auscultation, Normal air movement, No rhonchi, No wheeze, No rales. Cardiovascular: Regular rate, Regular Rhythm, Normal S1, Normal S2, PMI Normal. Abdomen: Bowel Sounds Present, Soft, Non Tender, Non-Distended, No Hepato-splenomegaly. Extremities: No clubbing, No cyanosis, No edema Skin: No rashes, No breakdown Neurological: Neuro grossly intact Vital Signs are stable. This note was generated with [employer] dictation software. It may contain incorrect words, spelling, and punctuation that were not noted in checking the note before signing. - Physical Exam Vitals/I&O's: Vital Signs Temp Pulse Resp BP Pulse Ox 97.8 F 74 16 121/67 H 94 04/08/19 14:47 04/08/19 14:59 04/08/19 14:47 04/08/19 14:47 04/08/19 14:47 Oxygen Delivery Method Room Air Weight: 101 lb 14.4 oz Body Mass Index (BMI) 16.9 Intake and Output for Last 24 Hours 04/06/19 04/07/19 04/08/19 23:59 23:59 23:59 Intake Total 250 / 250 360 / 360 Balance 250 / 250 360 / 360 Laboratory Results 04/07/19 20:52: Troponin I < 0.015 04/08/19 00:00: Troponin I < 0.015 04/08/19 03:10: WBC 8.8, RBC 4.25, Hgb 12.5, Hct 37.7, MCV 88.7, MCH 29.4, MCHC 33.2, RDW Std Deviation 40.9, RDW Coeff of Atif 12.7, Plt Count 316, MPV 8.6, Immature Gran % (Auto) 0.300, Neut % (Auto) 51.5, Lymph % (Auto) 32.3, Conway % (Auto) 10.6 H, Eos % (Auto) 4.2, Baso % (Auto) 1.1 H, Absolute Neuts (auto) 4.5, Absolute Lymphs (auto) 2.83, Nucleated RBC % 0 04/08/19 03:10: Sodium Cancelled, Potassium Cancelled, Chloride Cancelled, Carbon Dioxide Cancelled, Anion Gap Cancelled, BUN Cancelled, Creatinine Cancelled, Estim Creat Clear Calc Cancelled, Est GFR (MDRD) Af Amer Cancelled, Est GFR (MDRD) Non-Af Cancelled, BUN/Creatinine Ratio Cancelled, Glucose Cancelled, Calcium Cancelled, Total Bilirubin Cancelled, AST Cancelled, ALT Cancelled, Alkaline Phosphatase Cancelled, Total Protein Cancelled, Albumin Cancelled, Globulin Cancelled, Albumin/Globulin Ratio Cancelled, Triglycerides Cancelled, Cholesterol Cancelled, LDL Cholesterol Cancelled, VLDL Cholesterol Cancelled, HDL Cholesterol Cancelled 04/08/19 03:10: Sodium 143, Potassium 3.9, Chloride 109 H, Carbon Dioxide 29.0, Anion Gap 5, BUN 15, Creatinine 0.60, Estim Creat Clear Calc 69.12, Est GFR (MDRD) Af Amer 129, Est GFR (MDRD) Non-Af 107, BUN/Creatinine Ratio 25.0 H, Glucose 101, Calcium 8.8, Total Bilirubin 0.50, AST 16, ALT 24, Alkaline Phosphatase 85, Troponin I < 0.015, Total Protein 6.5, Albumin 3.3, Globulin 3.2, Albumin/Globulin Ratio 1.0, Triglycerides 101, Cholesterol 163, LDL Cholesterol 77, VLDL Cholesterol 20, HDL Cholesterol 66 Disposition: Home Minutes spent on discharge:: 26 Patient Condition:: Stable Meaningful Use Info Meaningful Use Diagnoses (Choose all that apply): None applicable Code Visit OBSV E&M: 29222 Observation care discharge
== END 2019-04-08 11:57 | disposition home or self-care (01) ==
LOC: ED 15:16 → PCU 16:49
PROVIDERS: Admitting Provider Internal Medicine; Emergency Provider Emergency Medicine; Family Provider Family Medicine; PCP Family Medicine; Visit Provider Hospitalist
DX: M79.602 Pain in left arm (principal); R20.0 Anesthesia of skin; R20.2 Paresthesia of skin; Z23 Encounter for immunization; R42 Dizziness and giddiness; R06.02 Shortness of breath; M81.0 Age-related osteoporosis without current pathological fracture; K58.9 Irritable bowel syndrome, unspecified; R00.2 Palpitations; Z79.899 Other long term (current) drug therapy; M25.512 Pain in left shoulder; G43.109 Migraine with aura, not intractable, without status migrainosus; Z82.49 Family history of ischemic heart disease and other diseases of the circulatory system
CPT/HCPCS: 36415; 70496; 70498; 70551; 71045; 78452; 80048; 80053; 80061; 84484; 85025; 93005; 93017; 96372; 99218; 99251; 99285; A9500; Q9967; 90686; A4216; G0378; G0463

== ENCOUNTER 2020-03-11 02:32 | Emergency (ER) | payer OTHER, SELFPAY ==
[2019-08-17 13:50] VITALS: BMI 17.4
[2020-03-11 02:32] VITALS: BP 109/56; PULSE 68; RESP 20; TEMP 36.5; O2SAT 100; BMI 19.1
--- NOTE | 2020-03-11 02:53 | CT_ITS ---
STUDY: CT BRAIN WITHOUT CONTRAST REASON FOR EXAM: Female, 64 years old. SYNCOPAL EPISODE AFTER BM. HIT HEAD. LT FOREHEAD HEMATOMA RADIATION DOSAGE (If Supplied By Facility): CTDIvol = ( 44.99 ) mGy, DLP = ( 745.49 ) mGycm TECHNIQUE: Transaxial CT imaging of the brain was performed without administration of intravenous contrast material. Individualized dose optimization techniques were used for this CT. COMPARISON: 01/13/2020. FINDINGS: Mild scalp swelling overlying the left frontal bone above the frontal sinus. Normal calvarium. There is mild cerebral atrophy with widening of the extra-axial spaces and ventricular dilatation. Normal white matter tracts of the cerebral hemispheres. Normal basal ganglia and thalami. Normal brainstem. Normal cerebellum. There is no intracranial hemorrhage. There are no findings of an acute ischemic infarction. Normal visualized paranasal sinuses. CT/Brain/Head without Contrast IMPRESSION: Involutional changes otherwise no acute intracranial hemorrhage or space-occupying lesion. Mild left scalp swelling as described. Electronically Signed: Leah Tinajero MD at 4:07 EST , Service support ,
--- NOTE | 2020-03-11 02:53 | RAD_ITS ---
STUDY: X-RAY CHEST REASON FOR EXAM: Female, 64 years old. pt with chest pain this evening, syncopal episode after trying to have bowel movement TECHNIQUE: Single AP portable view of the chest. COMPARISON: 04/07/2019. FINDINGS: The lungs are clear and expanded. There is no demonstrated pleural abnormality. Normal size heart. Normal mediastinum and see. Normal visualized pulmonary arteries. Normal visualized aortic arch and descending thoracic aorta. Normal visualized thoracic spine. Normal visualized ribs, clavicles, and shoulders. There is no demonstrated abnormality of the visualized soft tissue structures of the upper abdomen. RAD/Chest 1 View (Portable) IMPRESSION: No acute cardiopulmonary disease. Electronically Signed: Leah Tinajero MD at 3:56 EST , Service support ,
--- NOTE | 2020-03-11 02:54 | EKG12_ITS ---
Test Reason : CP Blood Pressure : / mmHG Vent. Rate : 061 BPM Atrial Rate : 061 BPM P-R Int : 120 ms QRS Dur : 082 ms QT Int : 466 ms P-R-T Axes : 049 030 061 degrees QTc Int : 469 ms Normal sinus rhythm Low voltage QRS Cannot rule out Anterior infarct , age undetermined Abnormal ECG Confirmed by CHARISSA ANDERSON, FITO ([id number]), editor trade journal [employer] ENGLISH ([id number]) on 03/13/2020 12:51:51 PM Referred By: ELKE Confirmed By:FITO CARRINGTON MD
--- NOTE | 2020-03-11 02:54 | ED.VIS.GEN ---
History of Present Illness Chief Complaint: Chest Pain Informant: Patient Narrative: 64-year-old female states that today she had a syncopal episode. She tells me that for most of the day she felt fine. She began to have a little discomfort in the lower chest epigastrium region before dinner. She watched TV and around 130 went upstairs to get ready for bed. She began to have some cramping in the abdomen like she needed to have a bowel movement. She went to go have a bowel movement and got very lightheaded sweaty and sustained a syncopal episode. During the episode she fell forward striking her head. She states that she continues to have the abdominal discomfort. She notes some slight nausea. She has had a stress test in the past year that was negative. Normal cholesterol testing. She follows with Dr. Varner for cardiology. Dr. Reyes for primary care. - Past Medical History (1) Family history of coronary artery disease Status: Chronic (2) Palpitations Status: Chronic Past Medical History - Allergies and Home Meds Allergies/Adverse Reactions: Allergies Penicillins Adverse Reaction (Verified 03/11/20 02:32) rash sulfamethoxazole [From Bactrim] Adverse Reaction (Verified 03/11/20 02:32) rash trimethoprim [From Bactrim] Adverse Reaction (Verified 03/11/20 02:32) rash Primary Care Physician: Min Reyes MD [Primary Care Provider] - Prior records reviewed: Yes Surgical History: no surgical history Lives: Spouse/ Significant Other Smoking Status: Never smoker Drugs: None Review of Systems General: Denies: Chills, Fever, Sweats Eyes: Denies: Visual changes - bilaterally, Diplopia ENT: Denies: Rhinorrhea, Sore throat Cardiovascular: Reports: - - Syncope. Denies: Chest pain, Palpitations Respiratory: Denies: Dyspnea, Cough, Dyspnea on exertion Gastrointestinal: Reports: Abdominal pain, Nausea. Denies: Vomiting, Diarrhea, Melena, Hematochezia Genitourinary: Denies: Dysuria, Hematuria, Frequency Musculoskeletal: Denies: Back pain, Extremity Pain Skin: Denies: Rash, Wounds Neurological: Denies: Headache, Weakness, Numbness Physical Exam Vital Signs/Narrative: Vital Signs Temp Pulse Resp BP Pulse Ox 03/11/20 02:32 97.7 F L 68 20 H 109/56 L 100 Inital Vital Signs reviewed: Yes General: Well nourished, Well developed, No Acute Distress Head: Normocephalic, Trauma - There is a large forehead hematoma on the left Eyes: Perrl, EOMI ENT: Moist mucous membranes, No rhinorrhea Neck: Supple, Nontender Cardiovascular: Regular rate, Regular rhythm, No murmurs Respiratory: No distress, CTA bilaterally, Chest nontender Abdomen: Soft, Nontender, Nondistended, Normal bowel sounds Back: Nontender, Normal Inspection Extremities: Nontender, No edema Skin: Normal color, No rash Neurological: Alert, Oriented x3, Cranial nerves II-XII grossly intact, Normal Strength, Normal Sensation Diagnostic/Tx/Re-eval Clinical Impression(s) from Imaging Studies Brain CT 03/11/20 02:53 IMPRESSION: Involutional changes otherwise no acute intracranial hemorrhage or space-occupying lesion. Mild left scalp swelling as described. Electronically Signed: Leah Tinajero MD at 4:07 EST , Service support , Chest X-Ray 03/11/20 02:53 IMPRESSION: No acute cardiopulmonary disease. Electronically Signed: Leah Tinajero MD at 3:56 EST , Service support , Laboratory Last Values WBC 7.9 K/mm3 (4.4-11.0) 03/11/20 02:47 RBC 4.55 M/mm3 (4.2-5.4) 03/11/20 02:47 Hgb 13.2 g/dL (12.0-15.0) 03/11/20 02:47 Hct 40.8 % (37-47) 03/11/20 02:47 MCV 89.7 fL (81-99) 03/11/20 02:47 MCH 29.0 pg (27.0-32.0) 03/11/20 02:47 MCHC 32.4 g/dL (32-36) 03/11/20 02:47 RDW Std Deviation 41.1 fl (35.1-43.9) 03/11/20 02:47 RDW Coeff of Atif 12.4 % (11.6-14.6) 03/11/20 02:47 Plt Count 329 K/mm3 (150-450) 03/11/20 02:47 MPV 8.6 fl (6.2-12.0) 03/11/20 02:47 Immature Gran % (Auto) 0.300 % (0.0-0.9) 03/11/20 02:47 Neut % (Auto) 37.3 % (47-70) L 03/11/20 02:47 Lymph % (Auto) 48.1 % (19-41) H 03/11/20 02:47 [place] % (Auto) 8.2 % (0-10) 03/11/20 02:47 Eos % (Auto) 5.1 % (0-5) H 03/11/20 02:47 Baso % (Auto) 1.0 % (0-1) 03/11/20 02:47 Absolute Neuts (auto) 3.0 X10^3/uL (2.0-7.7) 03/11/20 02:47 Absolute Lymphs (auto) 3.81 X10^3/uL (0.83-4.51) 03/11/20 02:47 Nucleated RBC % 0 % (0-5) 03/11/20 02:47 Sodium 139 mmol/L (136-145) 03/11/20 02:47 Potassium 3.9 mmol/L (3.5-5.1) 03/11/20 02:47 Chloride 105 mmol/L (98-107) 03/11/20 02:47 Carbon Dioxide 28.0 mmol/L (21.0-32.0) 03/11/20 02:47 Anion Gap 6 (5-15) 03/11/20 02:47 BUN 20 mg/dL (7-18) H 03/11/20 02:47 Creatinine 0.84 mg/dL (0.55-1.02) 03/11/20 02:47 Estim Creat Clear Calc 55.02 ml/min 03/11/20 02:47 Est GFR (MDRD) Af Amer 87 mL/min (>60) 03/11/20 02:47 Est GFR (MDRD) Non-Af 72 mL/min (>60) 03/11/20 02:47 BUN/Creatinine Ratio 23.7 RATIO (10-20) H 03/11/20 02:47 Glucose 94 mg/dL (74-106) 03/11/20 02:47 Calcium 9.5 mg/dL (8.5-10.1) 03/11/20 02:47 Total Bilirubin 0.60 mg/dL (0.20-1.00) 03/11/20 02:47 AST 30 U/L (15-37) 03/11/20 02:47 ALT 31 U/L (13-56) 03/11/20 02:47 Alkaline Phosphatase 80 U/L (45-117) 03/11/20 02:47 Troponin I < 0.015 ng/mL (<0.045) 03/11/20 02:47 Total Protein 7.5 g/dL (6.4-8.2) 03/11/20 02:47 Albumin 3.7 g/dL (3.2-5.0) 03/11/20 02:47 Globulin 3.8 g/dL (2.2-4.2) 03/11/20 02:47 Albumin/Globulin Ratio 1.0 RATIO (0.9-2.4) 03/11/20 02:47 - EKG Initial EKG Interpretation: Sinus Rhythm - EKG demonstrates a normal sinus rhythm at a rate of 61. There is no ectopy. No concerning features of ACS. - Medical Decision Making Patient was placed on the monitor and observed. There is been no cardiac events noted. EKG appears unchanged from March 2019. Head CT is negative. Chest x-ray is negative. Basic blood work negative. Patient has had several diarrheal movements here in the department. I believe she most likely sustained a vasovagal syncope from her description of the events. I have low concern for ACS. Patient will receive a prescription for Zofran instructions for Imodium return if worsening or concerns ED Disposition - Plan for ED Patient: Disposition: Home or Assisted Living Diagnosis: Vasovagal syncope, Traumatic hematoma of forehead, Diarrhea Instructions: ED VAGAL SYNCOPE, ED Vomiting and Diarrhea Nonspecific Adult, ED CONTUSION Face No Wake Up] Prescriptions: Ondansetron [Zofran Odt] 4 mg PO Q6H PRN PRN #10 tab PRN Reason: Nausea Prescription Printed Referrals: Min Reyes MD [Primary Care Provider] - 3-5 Days if not improving
[2020-03-11] MEDS: Dicyclomine 10 MG Capsule 20 MG PO (02:59)
[2020-03-11] MEDS: Ondansetron 4 MG/2 ML Vial IV (03:00)
[2020-03-11 03:05] LABS: Absolute Lymphocyte Count 3.81 X10^3/uL (0.83-4.51); Basophil# 0.08 X10^3/uL; Eosinophils% 5.1 % (0-5); Hematocrit 40.8 % (37-47); Hemoglobin 13.2 g/dL (12.0-15.0); Lymphocyte # 3.81 X10^3/ul (4.0); Lymphocyte % 48.1 % (19-41); Mean Corp Hgb Conc 32.4 g/dL (32-36); Mean Corpuscular Volume 89.7 fL (81-99); Mean Platelet Vol. 8.6 fl (6.2-12.0); Monocyte# 0.65 X10^3/uL; Monocyte% 8.2 % (0-10); NRBC Flagged by Analyzer 0 % (0-5); Neutrophil # 2.96 X10^3/uL (2.7-7.7); Neutrophil % 37.3 % (47-70); Platelet Count 329 K/mm3 (150-450); RBC Distribution Width CV 12.4 % (11.6-14.6); RBC Distribution Width SD 41.1 fl (35.1-43.9); Red Blood Count 4.55 M/mm3 (4.2-5.4); White Blood Count 7.9 K/mm3 (4.4-11.0)
[2020-03-11 03:53] VITALS: BP 116/57; PULSE 81; RESP 16; O2SAT 98
[2020-03-11 03:56] LABS: AST(SGOT) 30 U/L (15-37); Alanine Aminotransfer ALT/SGPT 31 U/L (13-56); Albumin, Serum 3.7 g/dL (3.2-5.0); Alkaline Phosphatase 80 U/L (45-117); Anion Gap 6 (5-15); BUN 20 mg/dL (7-18); BUN/Creat Ratio 23.7 RATIO (10-20); Calcium,Total 9.5 mg/dL (8.5-10.1); Chloride 105 mmol/L (98-107); Creatinine, Serum 0.84 mg/dL (0.55-1.02); EST Glomerular Filtration Rate 72 mL/min (>60); Est Glom Filt Rate - Afr Amer 87 mL/min (>60); Estimated Creatinine Clearance 55.02 ml/min; Globulin 3.8 g/dL (2.2-4.2); Glucose 94 mg/dL (74-106); Potassium 3.9 mmol/L (3.5-5.1); Protein, Total 7.5 g/dL (6.4-8.2); Sodium Level 139 mmol/L (136-145)
[2020-03-11 04:04] VITALS: BP 150/80; PULSE 86; RESP 18; O2SAT 96
[2020-03-11 04:49] VITALS: BP 122/60; PULSE 87; RESP 16; O2SAT 100
== END 2020-03-11 04:50 | disposition home or self-care (01) ==
PROVIDERS: Emergency Provider Emergency Medicine; PCP Family Medicine
DX: R55 Syncope and collapse (principal); S00.83XA Contusion of other part of head, initial encounter; R19.7 Diarrhea, unspecified; W19.XXXA Unspecified fall, initial encounter
CPT/HCPCS: 70450; 71045; 80053; 84484; 85025; 93005; 96374; 99285; J2405

== ENCOUNTER → 2021-01-31 16:14 | Outpatient (CLI) | payer OTHER, SELFPAY | PROVIDERS: PCP Family Medicine; Referring Provider Physician Assistant; Visit Provider Physician Assistant | DX: Z11.52 Encounter for screening for COVID-19 (principal) | CPT/HCPCS: 87635; U0005; U0003 ==

== ENCOUNTER 2021-05-20 10:30 | Outpatient (CLI) | payer BC, SELFPAY | END 2021-05-20 23:59 | disposition short-term general hospital (02) | LOC: LABSPEC 10:32 | PROVIDERS: PCP Family Medicine; Visit Provider Physician Assistant | DX: Z20.822 Contact with and (suspected) exposure to COVID-19 (principal) | CPT/HCPCS: 87635; U0003; U0005 ==

== ENCOUNTER → 2021-12-05 | Outpatient (CLI) | payer BC, SELFPAY ==
[2021-12-05 11:22] LABS: AST(SGOT) 22 U/L (15-37); Alanine Aminotransfer ALT/SGPT 26 U/L (13-56); Albumin, Serum 3.8 g/dL (3.2-5.0); Alkaline Phosphatase 73 U/L (45-117); Bilirubin, Direct 0.17 mg/dL (0.00-0.30); Cholesterol 187 mg/dL (200); Globulin 3.5 g/dL (2.2-4.2); High Density Lipoprotein 73 mg/dL; Protein, Total 7.3 g/dL (6.4-8.2); Triglycerides 109 mg/dL; Very Low Density Lipoprotein 22 mg/dL (5-40)
== END | disposition home or self-care (01) ==
LOC: LAB 09:28
PROVIDERS: PCP Family Medicine; Referring Provider Internal Medicine Cardiovascular Disease; Visit Provider Internal Medicine Cardiovascular Disease
DX: E78.00 Pure hypercholesterolemia, unspecified (principal)
CPT/HCPCS: 36415; 80061; 80076

== ENCOUNTER 2024-02-05 09:30 | Outpatient (RCR) | payer BC, SELFPAY | END 2024-02-05 19:00 | disposition home or self-care (01) | LOC: PT 09:30 | PROVIDERS: Referring Provider Student in an Organized Health Care Education/Training Program; Visit Provider Student in an Organized Health Care Education/Training Program | DX: M54.32 Sciatica, left side (principal) | CPT/HCPCS: 97110; 97162; 97530 ==

== ENCOUNTER 2024-03-03 01:35 | Emergency (ER) | payer BC, SELFPAY ==
[2024-03-03 01:36] VITALS: BP 106/54; PULSE 67; RESP 16; TEMP 36.4; O2SAT 100
[2024-03-03 02:04] VITALS: BP 110/63; BP 112/66; BP 115/75; PULSE 64; PULSE 65; PULSE 72
[2024-03-03] MEDS: 0.9% Normal Saline (1000mL) 1,000 ML 999 ML IV (02:15)
[2024-03-03 02:25] LABS: Absolute Lymphocyte Count 2.22 X10^3/uL (0.83-4.51); Absolute Neutrophil Count 7.3 X10^3/uL (2.0-7.7); Basophil% 0.9 % (0-1); Eosinophil# 0.37 X10^3/uL; Eosinophils% 3.4 % (0-5); Hematocrit 39.6 % (37-47); Hemoglobin 13.1 g/dL (12.0-15.0); Lymphocyte # 2.22 X10^3/ul (0.83-4.51); Lymphocyte % 20.1 % (19-41); Mean Corp Hgb Conc 33.1 g/dL (32-36); Mean Corpuscular Hgb 29.5 pg (27.0-32.0); Mean Corpuscular Volume 89.2 fL (81-99); Mean Platelet Vol. 8.3 fl (6.2-12.0); Monocyte# 0.96 X10^3/uL; Monocyte% 8.7 % (0-10); NRBC Flagged by Analyzer 0 % (0-5); Neutrophil # 7.31 X10^3/uL (2.7-7.7); Neutrophil % 66.3 % (47-70); Platelet Count 312 K/mm3 (150-450); RBC Distribution Width CV 13.1 % (11.6-14.6); RBC Distribution Width SD 42.3 fl (35.1-43.9); Red Blood Count 4.44 M/mm3 (4.2-5.4)
[2024-03-03 03:02] LABS: Anion Gap 5 (5-15); BUN 14 mg/dL (7-18); BUN/Creat Ratio 20.1 RATIO (10-20); Calcium,Total 9.5 mg/dL (8.5-10.1); Chloride 107 mmol/L (98-107); EST Glomerular Filtration Rate 88 mL/min (>60); Est Glom Filt Rate - Afr Amer 107 mL/min (>60); Estimated Creatinine Clearance 24.48 ml/min; Glucose 105 mg/dL (74-106); Magnesium 2.3 mg/dL (1.6-2.6); Potassium 3.7 mmol/L (3.5-5.1); Sodium Level 140 mmol/L (136-145); Troponin-I HS 9 pg/mL (3.0-54.0)
[2024-03-03 03:36] VITALS: BP 124/64; PULSE 73; RESP 18; O2SAT 100
[2024-03-03 03:49] VITALS: BP 124/64; PULSE 72; RESP 16; TEMP 36.9; O2SAT 99
== END 2024-03-03 03:58 | disposition home or self-care (01) ==
PROVIDERS: Emergency Provider Emergency Medicine; PCP Family Medicine; Visit Provider Emergency Medicine
DX: R55 Syncope and collapse (principal); F41.9 Anxiety disorder, unspecified; K58.9 Irritable bowel syndrome, unspecified; G43.909 Migraine, unspecified, not intractable, without status migrainosus; M81.0 Age-related osteoporosis without current pathological fracture; Z88.1 Allergy status to other antibiotic agents; Z88.2 Allergy status to sulfonamides; Z88.0 Allergy status to penicillin; Z79.83 Long term (current) use of bisphosphonates
CPT/HCPCS: 80048; 83735; 84443; 84484; 85025; 93005; 96360; 96361; 99284; J7030; A4216

== ENCOUNTER → 2024-06-24 | Outpatient (CLI) | payer BC, SELFPAY ==
--- NOTE | 2024-06-24 15:36 | VDLE_ITS ---
Reason For Study Reason For Study: Pain RIGHT LEFT CFV is compressible, spontaneous, phasic, competent GSV is normal. and demonstrates normal augmentation. CFV is compressible, spontaneous, phasic, competent, Procedure and demonstrates normal augmentation. This is a venous duplex using B-mode, color flow and FV is compressible, spontaneous, phasic, competent spectral Doppler. and demonstrates normal augmentation. Exam performed in department. POP V is compressible, spontaneous, phasic, competent A preliminary report was called and/or faxed to [facility] and demonstrates normal augmentation. JERI Lora. T/P Trunk is compressible. PTV is compressible. LT PerV is compressible. VL/Venous Duplex US, Unilateral Interpretation Summary Deep veins of the left lower extremity are patent and compressible segmentally. There is no evidence of left lower extremity deep vein thrombosis. The left great saphenous vein appears patent an d compressible segmentally. Ordering Physician: Bing Lora Referring Physician: Marly Cox M.D. Performed By: Suha Das RVT and Student
== END | disposition home or self-care (01) ==
PROVIDERS: PCP Family Medicine; Referring Provider Physician Assistant Surgical; Visit Provider Physician Assistant Surgical
DX: M54.32 Sciatica, left side (principal); M25.562 Pain in left knee; M79.662 Pain in left lower leg
CPT/HCPCS: 93971

== ENCOUNTER 2024-09-05 09:00 | Outpatient (RCR) | payer BC, SELFPAY ==
--- NOTE | 2024-07-13 11:10 | HP.PTEVAL ---
Patient's Visit Information Visit Information Visit Information: SHAR WESTON is a 69 year old F referred to Physical Therapy by JERI Huber with a diagnosis of L knee pain, L knee effusion, popliteal cyst. Date of Evaluation: 07/12/24 Physical Therapist: Prashant Bennett DPT Visit Plan Frequency: 2x /Week Duration: 6 Weeks Plan: 1) L knee stability exercises including balance avoiding hyper extension 2) gym progression working on quad, HS and glute medius strengthening. 3) may use vaso and ice as needed for edema. Subjective Subjective: Pt. is here today for her initial evaluation with diagnosis of L popliteal cyst, L knee effusion. Pt. reports having pain on and off for a year, but has been progressively getting worse. She had a lot of pain the last few weeks then last week at intense pain in her calf and posterior knee. Physician said she most likely ruptured her bursa causing her increased pain. Pt. reports having an MRI which was relatively clean. Pt. reports being very active both with hiking and with dancing. She has been dance less recently due to her pain. Pt. is planning an large hike in [place] this coming summer and fall. Pt. reports working out in gym, but has done less recently due to work schedule. Pt. denies n/T, no giving out of her knee with activities. Pt. is hopeful to reduce symptoms and get back to all recreational activities without limitations. Pt. is suppose to start a steroid today for her edema. Pain L posterior knee: Pain Intensity (Out of 10): 2 Pain Intensity Range: 1 and 6 Objective Objective: POSTURE: Pt. has normal posture in stance. Pt. has no marked wt. shifting and no marked varus/valgus positioning. PALPATION: Pt. has increased tenderness throughout popliteal fossa. Mild tenderness at distal HS. NEURO: normal throughout sensation, DTR and is able to rise on heels and toes. ROM: Pt. has full ROM without increase in symptoms. Pt. has normal HS length bilaterally. Pt. has normal quad length. Pt. has marked hypermobility in B knee and hip joints. MMT: Pt. has good strength without increase in symptoms. GAIT: fairly normal gait pattern without increase in symptoms. STAIRS: Pt. has mild increase in symptoms with descending. SLS: Pt. did have increased difficulty and slight increase in symptoms with L SLS. Pt. able to complete for 21 sec, but did have increased symptoms lucio attempting to recover her stability. Pt. did have some symptoms with Alex testing with greater flexion and IR rotation. Pt did have a + disc with increased depth. Pt. have great squat mechanics with full depth without increase in symptoms. 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 to be I with HEP. Goal Time Frame: 4-6 Weeks Goal 2:: STG: Pt. to be able to walk unlimited distances without increase in L knee pain. Goal Time Frame: 2-4 Weeks Goal 3:: LTG: Pt. to complete SLS on L side with good knee stability and no increase in symptoms. Goal Time Frame: 4-6 Weeks Goal 4:: LTG: Pt. to have no edema in LLE after doing all dancing and working out. Goal Time Frame: 4-6 Weeks Rehabilitation Potential Physical Therapy Diagnosis: Pt. has signs and symptoms consistent with L knee pain, L knee effusion, popliteal cyst. Pt. has decent strength, but did have symptoms when put into twisted motions or uneven positions. Pt. would benefit from PT to increase L knee stability in order to increase tolerance to all dynamic mobility, ie hiking and dancing. Rehabilitation Potential: Excellent Anticipated Interventions Patient/Client Instruction: Educate patient on: Condition, Plan of Care, Risk Factors and Benefits of Fitness Program For the Purpose of:: To improve safety, To improve health and function, To foster healthy habits, To improve decision making, To facilitate caregiver knowledge, To improve self management, To prevent re-injury and To improve ability to perform tasks related to life management Therapeutic Exercise to Include: Strength training, Power training, Balance training and Gait and locomotor training For the Purpose of:: To decrease pain, To decrease swelling/inflammation, To increase ROM, To improve nutrient delivery to tissue, To increase oxygenation perfusion and To improve health of tissue Cryotherapy (ice pack, ice massage): Yes Vasopneumatic device: Yes For the Purpose of:: To decrease pain and To decrease swelling/inflammation Text: Thank you for the opportunity to evaluate your patient. For Medicare and Medicare HMO plans, please review the plan of care and approve it. It will need to be FAXED BACK to us at [phone] for Medicare purposes. For Medicare only, by signing this I certify the plan of care. Please let me know if there are questions or concerns regarding this plan of care. Physician Signature: Date:
--- NOTE | 2024-08-11 12:50 | HP.PTREVAL ---
Re-Evaluation Intro: JERI Huber, It has been my pleasure to treat SHAR WESTON over the last 8 visits for L knee pain, L knee effusion, popliteal cyst. Please see the progress note below for an update on the physical therapy plan of care! Subjective Subjective: Pt. reports overall doing 75% better. Pt. reports having much improved strength and stability in her knee. She reports still having some difficulty with controlling eccentric lowering with stairs. Pt. reports being pleased with PT, but feels like she needs more strengthening. She did report that over the past few days she has felt some more swelling and itching behind her L lateral knee. Objective Objective/Function: ROM: L knee: 0-0-130deg. No marked pain with mobility Pt. does have some slight swelling at popliteal space but small. MMT: R knee: ext 38.8#, flexion 25.7#; hip flexion 17.8# L knee: ext 29.8#, flexion 17.8#; hip: flexion 15.8# gait: Pt. has fairly normal gait pattern. STAIRS: Pt. is able to complete with reciprocal pattern, but does have difficulty with eccentric lowering. OVerall she is doing well. I would like to have a few more visits to work on gym progressive strengthening in order progress to I program. Plan Plan Plan: Pt. continues to have some weakness with L compared to R LE. I would like to have 3-4 more visits to work on further gym program to progress to I exercises. Balance/Gait/Functional tests Balance/Special Test Scores Lower Extremity Functional Score: 71 Goals Goals Goal 1:: LTG: Pt. to be I with HEP. Goal Time Frame: 4-6 Weeks Goal Progress: Progressing Goal 2:: STG: Pt. to be able to walk unlimited distances without increase in L knee pain. Goal Time Frame: 2-4 Weeks Goal Progress: Goal Met Goal 3:: LTG: Pt. to complete SLS on L side with good knee stability and no increase in symptoms. Goal Time Frame: 4-6 Weeks Goal Progress: Goal Met Goal 4:: LTG: Pt. to have no edema in LLE after doing all dancing and working out. Goal Time Frame: 4-6 Weeks Goal Progress: Progressing Goal 5:: LTG: Pt. to have I gym program to further LLE strengthening. Goal Time Frame: 2 Weeks Goal Progress: Progressing Anticipated Interventions Anticipated Interventions Patient/Client Instruction: Educate patient on: Condition, Plan of Care, Risk Factors and Benefits of Fitness Program For the Purpose of:: To improve safety, To improve health and function, To foster healthy habits, To improve decision making, To facilitate caregiver knowledge, To improve self management, To prevent re-injury and To improve ability to perform tasks related to life management Therapeutic Exercise to Include: Strength training, Power training, Balance training and Gait and locomotor training For the Purpose of:: To decrease pain, To decrease swelling/inflammation, To increase ROM, To improve nutrient delivery to tissue, To increase oxygenation perfusion and To improve health of tissue Cryotherapy (ice pack, ice massage): Yes Vasopneumatic device: Yes For the Purpose of:: To decrease pain and To decrease swelling/inflammation Re-Evaluation Ending Re-evaluation ending: Please do not hesitate to contact me at [phone] by phone or if you have questions or concerns regarding this new plan of care! Sincerely, RAVEN RosaT
--- NOTE | 2024-09-05 09:40 | HP.PTDCSUM_ITS ---
Discharge Summary D/C summary: It has been my pleasure to treat SHAR WESTON referred by JERI Huber, with the diagnosis of L knee pain, L knee effusion, popliteal cyst for a total of 14 visit(s). Discharge Date: 09/05/24 Please see the following information for a summary of their discharge status. Subjective Subjective: Pt. reports overall doing well. Pt. will be DC from PT at this point in time. She reports having good tolerance to gym exercises no major issues. Pain L posterior knee: Pain Intensity (Out of 10): 0 Overall Improvement % Improvement: 80 Objective Objective/Function: ROM: Pt. has full ROM of her L knee without increase in symptoms MMT: R knee: ext 35.7#, flex 23.8# L knee: ext 53.5#, flexion 23.7# GAIT: normal without issues. Pt. is overall doing much better. She is I with her HEP for gym programs. Pt. will be DC from PT at this point in time. All goals met. Goals Goal 1:: LTG: Pt. to be I with HEP. Goal Progress: Goal Met Goal 2:: STG: Pt. to be able to walk unlimited distances without increase in L knee pain. Goal Progress: Goal Met Goal 3:: LTG: Pt. to complete SLS on L side with good knee stability and no inc rease in symptoms. Goal Progress: Goal Met Goal 4:: LTG: Pt. to have no edema in LLE after doing all dancing and working out. Goal Progress: Goal Met Goal 5:: LTG: Pt. to have I gym program to further LLE strengthening. Goal Progress: Goal Met Plan Plan: Pt. to be DC from PT at this point in time. D/C Information d/c sentence: If there are questions or concerns regarding this patient's physical therapy, please feel free to call me at [phone]. Thank you for the referral of this patient. Sincerely, Prashant Wilson Sipos, DPT Balance/Gait/Functional tests Balance/Special Test Scores Lower Extremity Functional Score: 74 Improvement % Improvement: 80
== END 2024-09-05 19:00 | disposition home or self-care (01) ==
LOC: PT 09:00
PROVIDERS: PCP Family Medicine; Referring Provider Physician Assistant Surgical; Visit Provider Physician Assistant Surgical
DX: S83.8X2D Sprain of other specified parts of left knee, subsequent encounter (principal); M71.22 Synovial cyst of popliteal space [Baker], left knee; M25.462 Effusion, left knee
CPT/HCPCS: 97110; 97161; 97530

== ENCOUNTER → 2025-03-20 | Outpatient (CLI) | payer BC, SELFPAY ==
--- NOTE | 2025-03-20 17:00 | RAD_ITS ---
PROCEDURE: RIBS UNI MIN 3V W/PA CHEST 03/20/2025 REASON FOR EXAM: RIB PAIN. Injured right ribs 12 days ago. Lateral rib pain. TECHNIQUE: Procedure Code: RADRIB Modality: DX Procedure: RIBS UNI MIN 3V W/PA CHEST COMPARISON: XR CHEST 1V, 03/11/2020 FINDINGS: LUNGS AND PLEURA: The lungs are clear. No pleural effusion or pneumothorax. HEART AND MEDIASTINUM: The cardiac silhouette is borderline enlarged. The mediastinal contour is normal. BONES: Contour abnormality of the right anterior 8th rib, seen on one view. RAD/Ribs Uni Min 3V w/PA Chest IMPRESSION: Possible nondisplaced right anterior 8th rib fracture. Reading Location: [id number]
== END | disposition home or self-care (01) ==
LOC: MTRAD 16:59
PROVIDERS: PCP Family Medicine; Referring Provider Family Medicine; Visit Provider Family Medicine
DX: R07.89 Other chest pain (principal)
CPT/HCPCS: 71101

== ENCOUNTER → 2025-04-04 | Outpatient (CLI) | payer BC, SELFPAY ==
[2025-04-04 12:41] LABS: Hematocrit 40.5 % (37-47); Hemoglobin 13.1 g/dL (12.0-15.0); Immature Granulocytes Count 0.040 X10^3/uL (0.0-0.0); Mean Corp Hgb Conc 32.3 g/dL (32-36); Mean Corpuscular Volume 90.8 fL (81-99); Mean Platelet Vol. 8.9 fl (6.2-12.0); NRBC Flagged by Analyzer 0 % (0-5); Platelet Count 326 K/mm3 (150-450); RBC Distribution Width CV 12.9 % (11.6-14.6); RBC Distribution Width SD 42.5 fl (35.1-43.9); Red Blood Count 4.46 M/mm3 (4.2-5.4); White Blood Count 7.2 K/mm3 (4.4-11.0)
[2025-04-04 13:20] LABS: AST(SGOT) 24 U/L (<=31); Alanine Aminotransfer ALT/SGPT 19 U/L (<=34); Albumin, Serum 4.5 g/dL (3.4-4.8); Alkaline Phosphatase 71 U/L (35-104); Anion Gap 8 (5-15); BUN 17 mg/dL (4-19); BUN/Creat Ratio 22.7 RATIO (10-20); Calcium,Total 9.8 mg/dL (7.6-11.0); Carbon Dioxide 27.5 mmol/L (21.0-32.0); Chloride 105 mmol/L (98-108); Cholesterol 199 mg/dL (<=200); Globulin 2.6 g/dL (2.2-4.2); Glucose 82 mg/dL (70-99); Low Density Lipoprotein Calc. 102 mg/dL; Potassium 4.7 mmol/L (3.3-5.1); Triglycerides 75 mg/dL; Very Low Density Lipoprotein 15 mg/dL (5-40); Vitamin D,25 Hydroxy 43.7 ng/mL (30-100); cholesterol:hdl ratio screen 2.39
--- OUTSIDE RECORDS SUMMARY | 2025-04-04 13:20 | XMS RPT_ITS | CCD ---
Author Organization [facility] Care Team Providers Care Supervisory It Specialist Name Role Phone Rebeca Briggs MD Primary Care Provider Dr. Rebeca Reyes Primary Care Provider Dr. Rebeca Reyes Referring Provider JERI Powell Attending Provider Dr. Raj Varner Attending Provider Rebeca Birggs MD Primary Care Provider [phone] Rebeca Briggs MD Primary Care Provider [phone] Marly Cox MD Primary Care Provider Bing Asencio Attending Provider Bing Asencio Referring Provider [phone] Daniel Jacobo MD Attending Provider Reginald Patricia Referring Unavailable Reginald Patricia Attending Unavailable Kelvin Link Attending Unavailable Kenny Marly S Primary Care Unavailable Bing Lora Referring Unavailable Daniel Jacobo Attending Unavailable Marly Cox Primary Care Unavailable Bing Lora Referring Unavailable Bing Lora Attending Unavailable Kenny Marly S Primary Care Unavailable Bing Lora Referring Unavailable Bing Lora Attending Unavailable Kenny Marly S Primary Care Unavailable REBECA BRIGGS Primary Care Unavailable BLAS, BERKLEY Referring Unavailable REBECA BRIGGS Primary Care Unavailable BLAS, BERKLEY Referring Unavailable BERKLEY ODONNELL Attending Unavailable Allergies Allergy Classification Reported Allergen(s) Allergy Type Date of Onset Reaction(s) Facility Penicillins (antibiotic) (2 sources) Penicillins Drug Allergy 01-27-20 [facility] Sulfamethoxazole / Trimethoprim (2 sources) Sulfamethoxazole / Trimethoprim Drug Allergy 01-27-20 [facility] (7 sources) Penicillins; Translations: [PENICILLINS] Propensity to adverse reactions 01-27-20 [facility] Work Phone: (19 sources) Sulfamethoxazole / Trimethoprim; Translations: [SULFAMETHOXAZOLE-T RIMETHOPRIM] Drug Allergy 01-27-20 [facility] Work Phone: (3 sources) Sulfamethoxazole Drug Allergy 12-07-19 [facility] (3 sources) Trimethoprim Drug Allergy 12-07-19 [facility] (11 sources) Penicillins Propensity to adverse reactions 01-27-20 [facility] Work Phone: (2 sources) Penicillins Propensity to adverse reactions 03-03-20 [facility] (1 source) Penicillins Drug allergy (disorder) 03-03-20 [facility] Rep[facility] (1 source) Sulfamethoxazole Drug Allergy 03-03-20 [facility] Rep[facility] (1 source) Trimethoprim Drug Allergy 03-03-20 [facility] Repository (2 sources) Penicillins Propensity to adverse reactions 01-27-20 [facility] Medications Current Medications Medication Drug Class(es) Dates Sig (Normalized) Sig (Original) calcium carbonate 1250 mg chewable tablet (20 sources) Start: 08-12-2018 take 1 tablet by mouth once daily Calcium Carbonate 500 mg calcium (1,250 mg) tablet,chewable Active 1000 mg PO DAILY August 12, 2018 12:00am Start: 03-14-2009 calcium carbon ate(CALTRATE 600 600 MG (1,500 MG) TAB) Take two (2) tablets daily. 0 03/14/2009 Active Comment on above: Take two (2) tablets daily. cholecalciferol 0.125 mg oral capsule (20 sources) Vitamin D Start: 12-07-19 take 1 capsule by mouth once daily Cholecalciferol (Vitamin D3) 125 mcg (5,000 unit) capsule Active 125 ug PO DAILY December 06, 2021 12:00am Start: 04-07-2019 End: 12-06-2021 take 9906-6029 [IU] by mouth once daily Cholecalciferol (Vitamin D3) 1,000 UNIT tablet Discontinued 1000 - 2000 U PO DAILY April 07, 2019 1:00am December 06, 2021 3:03pm Cholecalciferol, Vitamin D3, 50 mcg (2,000 unit) cap Take by mouth. Active Cholecalciferol, Vitamin D3, (VITAMIN D-3) 2,000 unit cap Take by mouth. 0 Active Comment on above: Take by mouth. desonide 0.0005 mg/mg topical ointment (20 sources) Corticosteroid Start: 06-18-2021 desonide (DESOWEN) 0.05 % ointment Indications: Allergic dermatitis of left upper eyelid Apply to affected area twice daily. 15 g 06/18/2021 Active Comment on above: Apply to affected ar ea twice daily. estradiol 0.1 mg/ml vaginal cream (13 sources) Estrogen Start: 10-18-2024 estradiol (ESTRACE) 0.01 % (0.1 mg/gram) vaginal cream Use 1 g vaginally at bedtime for 2 weeks then 2-3 time/weeks for maintenance. 42.5 g 2 10/18/2024 Active Start: 08-05-2021 End: 03-03-2024 Estradiol 10 mcg tablet Disc ontinued 10 ug VAGINAL TWICE A WEEK December 06, 2021 12:00am March 03, 2024 3:08am Comment on above: Use 1 tablet vaginal ly two times a week. Completed/Discontinued Medications Medication Drug Class(es) Dates Sig (Normalized) Sig (Original) alendronic acid 70 mg oral tablet (20 sources) Bisphosphonate Start: 02-25-2022 End: 10-18-2025 take 1 tablet by mouth every week alendronate (FOSAMAX) 70 mg tablet Take 1 tablet by mouth one time a week. 12 tablet 3 10/15/2023 10/18/2024 Discontinued Start: 04-07-2019 End: 12-06-2021 take 1 tablet by mouth every week Alendronate 70 mg tablet Discontinued 70 mg PO EVERY WEEK September 05, 2020 3:54pm December 06, 2021 3:02pm End: 08-05-2021 alendronate sodium (FOSAMAX ORAL) Take by mouth. 0 08/05/2021 Discontinued Comment on above: Take by mouth. amitriptyline hydrochloride 25 mg oral tablet (4 sources) Tricyclic Antidepressant Start: 08-17-19 End: 09-06-19 21 take 1-10 tablets by mouth once daily as needed for pain Amitriptyline 25 mg tablet Discontinued 25 mg PO DAILY as needed for Pain 1-10 Or Fever August 17, 2019 12:00am September 05, 2020 3:54pm End: 08-05-2021 take 1 tablet by mouth once daily at bedtime amitriptyline (ELAVIL) 10 mg tablet Take 10 mg by mouth daily at bedtime. 0 08/05/2021 Discontinued Comment on above: Take 10 mg by mouth daily at bedtime. azithromycin 250 mg oral tablet (2 sources) Macrolide Antimicrobial Start: 07-07-19 End: 03-03-20 24 Azithromycin 250 mg tablet Discontinued 0 PO .COMPLEX 6 July 06, 2022 1:00am March 03, 2024 3:08am For 250 mg dose pack: take 500 mg today (day 1), then 250 mg for 4 days (days 2-5) PO esomeprazole 20 mg delayed release oral capsule (3 sources) Proton Pump Inhibitor Start: 10-24-19 End: 08-13-19 19 take 1 capsule by mouth once daily Esomeprazole Magnesium 20 MG capsule Discontinued 20 mg PO DAILY October 23, 2017 12:00am August 12, 2018 3:20pm ibuprofen 200 mg oral tablet (3 sources) Nonsteroidal Anti-inflammatory Drug Start: 04-07-20 End: 12-07-19 take 2 tablets by mouth once daily as needed for headache Ibuprofen 200 MG tablet Discontinued 400 mg PO DAILY NEEDED as needed for Headache April 07, 2019 1:00am December 06, 2021 3:04pm Start: 04-07-2019 End: 12-06-2021 take 400 mg by mouth once daily as needed Ibuprofen Discontinued 400 MG PO DAILY NEEDED April 07, 2019 1:00am December 06, 2021 3:04pm mometasone furoate 1 mg/ml topical cream (8 sources) Corticosteroid Start: 07-29-2022 End: 10-15-2023 mometasone (ELOCON) 0.1 % cream Indications: Rash and nonspecific skin eruption Apply to affected area twice daily for up to 2 weeks as needed for rash. 45 g 1 07/29/2022 10/15/2023 Discontinued (Other) Comment on above: Apply to affected ar ea twice daily for up to 2 weeks as needed for rash. ondansetron 4 mg disintegrating oral tablet (3 sources) Serotonin-3 Receptor Antagonist Start: 03-11-2020 End: 09-05-2020 take 1 tablet by mouth every six hours as needed for nausea Ondansetron 4 MG tablet Discontinued 4 mg PO EVERY 6 HOURS NEEDED as needed for Nausea March 11, 2020 5:24am September 05, 2020 3:55pm 1 ml tetanus immune globulin, human 250 unt/ml prefilled syringe (3 sources) Start: 10-26-2017 End: 08-12-2018 inject 250 [IU] by intramuscular injection once Tetanus Immune Globulin (Pf) 250 UNIT syringe Discontinued 250 U IM ONE TIME October 26, 2017 12:00am August 12, 2018 3:20pm Problems Active Problems Problem Classification Problem Date Documented Da te Episodic/Chronic Anxiety disorders (2 sources) Anxiety; Translations: [Anxiety disorder, unspecified] 03-11-2024 Chronic Asthma (20 sources) Asthma; Translations: [Unspecified asthma, uncomplicated] Onset: 01-09-2009 01-09-2009 Chronic Cardiac dysrhythmias (3 sources) Palpitations; Translations: [Palpitations] 12-05-2021 Episodic Chronic obstructive pulmonary disease and bronchiectasis (2 sources) Bronchitis; Translations: [Bronchitis, not specified as acute or chronic] 07-06-2022 Episodic Immunizations and screening for infectious disease (18 sources) Patient encounter status; Translations: [Encounter for screening for human papillomavirus (HPV)] Episodic Nonmalignant breast conditions (1 source) Breast finding ; Translations: [Dense breast tissue] 08-25-2022 Episodic Nutritional deficiencies (20 sources) Vitamin D deficiency; Translations: [Vitamin D deficiency, unspecified] Onset: 01-09-2009 01-30-2009 Chronic Osteoporosis (20 sources) Osteoporosis; Translations: [Age-related osteoporosis without current pathological fracture] Onset: 01-09-2009 01-30-2009 Chronic Other and unspecified benign neoplasm (2 sources) Multiple benign melanocytic nevi ; Translations: [Melanocytic nevi, unspecified] Episodic Other and unspecified benign neoplasm (2 sources) Senile angioma; Translations: [Hemangioma of skin and subcutaneous tissue] Episodic Other connective tissue disease (1 source) Synovial cyst of popliteal space [Mack], left knee; Translations: [Synovial cyst of popliteal space [Mack], left knee] Onset: 09-09-2024 Episodic Other gastrointestinal disorders (20 sources) Irritable bowel syndrome; Translations: [Irritable bowel syndrome without diarrhea] Onset: 01-30-2009 01-30-2009 Chronic Other gastrointestinal disorders (3 sources) Diarrhea; Translations: [Diarrhea, unspecified] 03-12-2020 Episodic Other lower respiratory disease (2 sources) Cough; Translations: [Acute cough] 07-06-2022 Episodic Other nervous system disorders (3 sources) Numbness of upper limb; Translations: [Anesthesia of skin] 08-16-2019 Episodic Other nervous system disorders (2 sources) H/O: migraine; Translations: [Personal history of other diseases of the nervous system and sense organs] 03-11-2024 Episodic Other non-traumatic joint disorders (1 source) Effusion, left knee; Translations: [Effusion, left knee] Onset: 09-09-2024 Episodic Other screening for suspected conditions (not mental disorders or infectious disease) (4 sources) Mammography abnormal; Translations: [Other abnormal and inconclusive findings on diagnostic imaging of breast] Onset: 10-18-2024 Episodic Other skin disorders (1 source) Skin tag; Translations: [Other hypertrophic disorders of the skin] Episodic Other skin disorders (1 source) Inflamed seborrheic keratosis; Translations: [Inflamed seborrheic keratosis] Episodic Other skin disorders (2 sources) Seborrheic keratosis; Translations: [Other seborrheic keratosis] Episodic Other skin disorders (1 source) Eruption; Translations: [Rash and other nonspecific skin eruption] Episodic Other upper respiratory infections (3 sources) Acute upper respiratory infection; Translations: [Acute upper respiratory infection, unspecified] 11-18-2021 Episodic Residual codes; unclassified (3 sources) Family history of coronary arteriosclerosis; Translations: [Family history of ischemic heart disease and other diseases of the circulatory system] 08-12-2018 Episodic Residual codes; unclassified (1 source) Family history of ischemic heart disease and other diseases of the circulatory system; Translations: [Family history of ischemic heart disease] Episodic Spondylosis; intervertebral disc disorders; other back problems (1 source) Sciatica, left side; Translations: [Sciatica, left side] Onset: 07-07-2024 Episodic Sprains and strains (1 source) Sprain of other specified parts of left knee, subsequent encounter; Translations: [Sprain of other specified parts of left knee, subsequent encounter] Onset: 09-09-2024 Episodic Superficial injury; contusion (3 sources) Injury of forehead; Translations: [Contusion of other part of head, initial encounter] 03-12-2020 Episodic Unclassified (2 sources) Patient encounter status 10-18-2024 Past or Other Problems Problem Classification Problem Date Documented Da te Episodic/Chronic Other bone disease and musculoskeletal deformities (9 sources) Disorder of skeletal system; Translations: [Disorder of bone, unspecified] Onset: 05-26-2008 Resolved: 01-09-2009 01-09-2009 Episodic Other connective tissue disease (20 sources) Hypermobility syndrome; Translations: [Hypermobility syndrome] Onset: 05-26-2008 01-09-2009 Episodic Syncope (6 sources) Vasovagal syncope; Translations: [Syncope and collapse] Onset: 03-29-2024 03-12-2020 Episodic Viral infection (4 sources) Disease caused by 2019-nCoV; Translations: [COVID-19] Onset: 11-18-2021 Episodic Results Test Name Value Interpretation Reference Range Facility [facility] 10-18-2024 CNOV Office Visit (OBGYWM) SHAR WESTON ([id number]) 1955 F Date Time Provider Department 10/18/24 1:30 PM BERKLEY ODONNELL OBIANWDaiana During your visit today, we recorded the following information about you: Blood pressure Weight Height 134/80 47.2 kg 1.627 m Berkley Odonnell APRN.CNP 10/18/2024 2:02 PM 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 Postmenopausal: Yes since 2007 HRT use: No. 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 LMP: 08/26/2007, Postmenopausal Age at Menarche: Age at First : Age at Menopause: Cellulose Insulation Helper History Comments: Sexual Activity: Yes; Male Contraception: Not used PAST MEDICAL HISTORY Diagnosis Date Asthma 01/09/2009 Disorder of bone and cartilage, unspecified 05/26/2008 Osteopenia Easy bruising 01/09/2009 Hypermobility syndrome 05/26/2008 Osteoporosis 01/09/2009 Unspecified asthma(493.90) Childhood PAST SURGICAL HISTORY Procedure Laterality Date NONE FAMILY HISTORY Problem Relation Age of Onset Osteoporosis Mother Stroke Mother Heart Mother other (IBS) Mother Heart Father AR at age 50, Headaches other (Gall Bladder) Sister None Sister other (Unknown) Brother AR 55 yrs of age stent placed None Brother SOCIAL HISTORY Social History Tobacco Use Smoking status: Never Smokeless tobacco: Never Vaping Use Vaping status: Never Used Substance Use Topics Alcohol use: Yes Alcohol/week: 7.0 standard drinks of alcohol Types: 7 Glasses of Wine (5oz) per week Comment: One Glass of Wine with Dinner Drug use: No REVIEW OF SYSTEMS Abdomen: No abdominal pain, nausea, vomiting, diarrhea, or constipation. No bloating, early satiety, indigestion, or increased flatulence. Bladder: No dysuria, gross hematuria, urinary frequency, urinary urgency, or incontinence Breast: No breast lumps, nipple d/c, overlying skin changes, redness or skin retraction Allergies and current medication updated:Yes SENSITIVE EXAM: The sensitive examination was discussed with the Patient or Patient's Authorized Marble Finisher. As applicable, any other physician, advance practice provider, medical student, or other health professional student that will be observing or involved in the sensitive examination for educational or training purposes was discussed with the Patient or Authorized Marble Finisher. The Patient or Authorized Marble Finisher has agreed to proceed with the sensitive examination. (Sensitive examination includes inspection and/or palpation of the breasts, pelvis, prostate and anorectal regions). EXAM: LMP 08/26/2007 GENERAL: pleasant, female in no apparent distress HEENT: Normocephalic, atraumatic, mucus membranes moist, and no lesions DERMATOLOGY: Normal, without lesions, non-icteric, and non-hirsute BREAST: soft, non-tender, symmetric, no dominant mass, normal nipple-areolar complex, no lymphadenopathy, and no nipple discharge CHEST: Normal inspiratory effort ABDOMEN: soft, non-tender, and no masses PELVIC: external genitalia normal, normal Bartholin's glands, urethra, [place]'s glands, no vulvar lesions, no cervical lesions, good vaginal support, physiologic discharge present, normal appearing perineal body and perianal region BIMANUAL: uterus normal size, shape and consistency, no adnexal masses, and non-tender RECTOVAGINAL: deferred. NEURO: alert and oriented x3,exam grossly non-focal EXTREMITIES: normal ASSESSMENT/PLAN: 1) Health maintenance: Pap/HPV screening no longer needed Mammogram ordered Mammogram up to date Nutrition, exercise and routine health maintenance exams reviewed. Calcium/Vitamin D supplementation information provided. Colon cancer screening: up to date with screening BMD: up to date 2) Follow up one year or sooner as needed 3) Estrace cream ordered Berkley Odonnell APRN.DIETARY SERVICES DIRECTOR Referring Provider: BERKLEY ODONNELL [[id number]] Allergies As of Date: 10/18/2024 Noted Allergy Reaction BACTRIM (SULFAMETHOXAZOLE-TR IMETH*01/26/2007 PENICILLINS 01/26/2007 Date Reviewed: 10/18/2024 Reviewed by: Berkley Odonnell APRN.DIETARY SERVICES DIRECTOR - Fully Assessed Reason for Visit: Well Woman [1463] Primary Visit Diagnosis:Encounter for gynecological examination (general) (routine) without abnormal findings [Z01.419] Other Visit Diagnosis:Encounter for screening mammogram for breast cancer [Z12.31] Order(s):MANOJ SCREENING W PANCHO [[id number]] Order #: [id number] FUTURE estradiol (ESTRACE) 0.01 % (0.1 mg/gram) vaginal creamUse 1 g vaginally at bedtime for 2 weeks then 2-3 time/weeks for mainte (more content not included)... Normal [facility] MANOJ SCREENING W TOMOon 10-18 MANOJ SCREENING W PANCHO * * *Final Report* * * DATE OF EXAM: Oct 18 2024 1:20PM [id number] - MANOJ SCREENING W PANCHO / PROCEDURE REASON: multiple diagnoses * * * * Physician Interpretation * * * * RESULT: [facility] [address] [id number] #[id number] - [facility] SCREENING W PANCHO HISTORY: 69 year-old patient presents for screening. Patient is asymptomatic in both breasts. Patient states no personal history of breast cancer. The patient has a family history of breast cancer. COMPARISON STUDIES: The present examination has been compared to prior imaging studies dated 08/07/2021 (mammogram), 08/23/2021 (mammogram), 08/25/2022 (mammogram) and 10/15/2023 (mammogram). MAMMOGRAM TECHNIQUE: The study was acquired using full field digital technology and interpreted from soft copy. Digital Breast Tomosynthesis (DBT) images were obtained and used to assist in the interpretation of this examination. MAMMOGRAM FINDINGS: The breasts are heterogeneously dense, which may obscure small masses. No suspicious masses, calcifications or other abnormalities are seen in either breast. There are no significant interval changes. IMPRESSION: There is no mammographic evidence of malignancy in either breast. Routine screening mammogram is recommended. Annual mammogram will be due in 1 year. BI-RADS Category 1: Negative RISK: Based on the Tyrer-Cuzick (TC) risk assessment model, this patient has a 3.9% lifetime risk of developing breast cancer, meaning they are at average risk for developing breast cancer. However, this is only an estimate based on available history provided on the patient's questionnaire. We encourage all patients to talk with their providers about these results, further recommendations for managing breast health, and appropriate supplemental screening options if the patient has dense breast tissue. Interpreting Radiologist: Oxana Heath M.D. Electronically signed on: 10/19/2024 Yard Rigger: ACE Transcribe Date/Time: Oct 18 2024 1:09P Dictated by: OXANA HEATH MD This examination was interpreted and the report reviewed and electronically signed by: OXANA HEATH MD on Oct 19 2024 12:08PM EST [id number] Normal [facility] PT D/C Summary (1)on 025 PT D/C Summary (1) [facility] Physical Therapy [facility] [place] [address] / REHABILITATION SERVICES DISCHARGE SUMMARY MR#: [id number] Acct: [id number] Name: SHAR WESTON Rep #: [id number] : 1955 69 From: Prashant Bennett DPT Referring Dr.: JERI Huber Status: REG RCR Insurance: [employer] SELF PAY INSURANCE Discharge Summary D/C summary: It has been my pleasure to treat SHAR WESTON referred by JERI Huber, with the diagnosis of L knee pain, L knee effusion, popliteal cyst for a total of 14 visit(s). Discharge Date: 09/05/24 Please see the following information for a summary of their discharge status. Subjective Subjective: Pt. reports overall doing well. Pt. will be DC from PT at this point in time. She reports having good tolerance to gym exercises no major issues. Pain L posterior knee: Pain Intensity (Out of 10): 0 Overall Improvement % Improvement: 80 Objective Objective/Function: ROM: Pt. has full ROM of her L knee without increase in symptoms MMT: R knee: ext 35.7#, flex 23.8# L knee: ext 53.5#, flexion 23.7# GAIT: normal without issues. Pt. is overall doing much better. She is I with her HEP for gym programs. Pt. will be DC from PT at this point in time. All goals met. Goals Goal 1:: LTG: Pt. to be I with HEP. Goal Progress: Goal Met Goal 2:: STG: Pt. to be able to walk unlimited distances without increase in L knee pain. Goal Progress: Goal Met Goal 3:: LTG: Pt. to complete SLS on L side with good knee stability and no increase in symptoms. Goal Progress: Goal Met Goal 4:: LTG: Pt. to have no edema in LLE after doing all dancing and working out. Goal Progress: Goal Met Goal 5:: LTG: Pt. to have I gym program to further LLE strengthening. Goal Progress: Goal Met Plan Plan: Pt. to be DC from PT at this point in time. D/C Information d/c sentence: If there are questions or concerns regarding this patient's physical therapy, please feel free to call me at [phone]. Thank you for the referral of this patient. Sincerely, Prashant Bennett DPT Balance/Gait/Functio nal tests Balance/Special Test Scores Lower Extremity Functional Score: 74 Improvement % Improvement: 80 09/05/24 0940 CC: Dr. Marly Cox MD; JERI Huber CLS Signed Normal [facility] Re-Evaluation - PT (1)on Re-Evaluation - PT (1) [facility] Physical Therapy [facility] [address] [place] [address] / REEVALUATION / MEDICARE RECERTIFICATION PHYSICAL THERAPY MR#: [id number] Acct: [id number] Name: SHAR WESTON Rep #: [id number] : 1955 69 From: Prashant Bennett DPT Referring Dr.: JERI Huber Status:REG RCR Insurance: [employer] SELF PAY INSURANCE Re-Evaluation Intro: JERI Huber, It has been my pleasure to treat SHAR WESTON over the last 8 visits for L knee pain, L knee effusion, popliteal cyst. Please see the progress note below for an update on the physical therapy plan of care! Subjective Subjective: Pt. reports overall doing 75% better. Pt. reports having much improved strength and stability in her knee. She reports still having some difficulty with controlling eccentric lowering with stairs. Pt. reports being pleased with PT, but feels like she needs more strengthening. She did report that over the past few days she has felt some more swelling and itching behind her L lateral knee. Objective Objective/Function: ROM: L knee: 0-0-130deg. No marked pain with mobility Pt. does have some slight swelling at popliteal space but small. MMT: R knee: ext 38.8#, flexion 25.7#; hip flexion 17.8# L knee: ext 29.8#, flexion 17.8#; hip: flexion 15.8# gait: Pt. has fairly normal gait pattern. STAIRS: Pt. is able to complete with reciprocal pattern, but does have difficulty with eccentric lowering. OVerall she is doing well. I would like to have a few more visits to work on gym progressive strengthening in order progress to I program. Plan Plan Plan: Pt. continues to have some weakness with L compared to R LE. I would like to have 3-4 more visits to work on further gym program to progress to I exercises. Balance/Gait/Functio nal tests Balance/Special Test Scores Lower Extremity Functional Score: 71 Goals Goals Goal 1:: LTG: Pt. to be I with HEP. Goal Time Frame: 4-6 Weeks Goal Progress: Progressing Goal 2:: STG: Pt. to be able to walk unlimited distances without increase in L knee pain. Goal Time Frame: 2-4 Weeks Goal Progress: Goal Met Goal 3:: LTG: Pt. to complete SLS on L side with good knee stability and no increase in symptoms. Goal Time Frame: 4-6 Weeks Goal Progress: Goal Met Goal 4:: LTG: Pt. to have no edema in LLE after doing all dancing and working out. Goal Time Frame: 4-6 Weeks Goal Progress: Progressing Goal 5:: LTG: Pt. to have I gym program to further LLE strengthening. Goal Time Frame: 2 Weeks Goal Progress: Progressing Anticipated Interventions Anticipated Interventions Patient/Client Instruction: Educate patient on: Condition, Plan of Care, Risk Factors and Benefits of Fitness Program For the Purpose of:: To improve safety, To improve health and function, To foster healthy habits, To improve decision making, To facilitate caregiver knowledge, To improve self management, To prevent re-injury and To improve ability to perform tasks related to life management Therapeutic Exercise to Include: Strength training, Power training, Balance training and Gait and locomotor training For the Purpose of:: To decrease pain, To decrease swelling/inflammatio n, To increase ROM, To improve nutrient delivery to tissue, To increase oxygenation perfusion and To improve health of tissue Cryotherapy (ice pack, ice massage): Yes Vasopneumatic device: Yes For the Purpose of:: To decrease pain and To decrease swelling/inflammatio n Re-Evaluation Ending Re-evaluation ending: Please do not hesitate to contact me at [phone] by phone or if you have questions or concerns regarding this new plan of care! Sincerely, Prashant Bennett DPT 08/11/24 1250 CC: Dr. Marly Cox MD; JERI Huber CLS Signed For Medicare only, by signing this I certify the plan of care. Physicians Signature Date Normal [facility] Inital Evaluation (1) - PTon 07-13-2024 Inital Evaluation (1) - PT [facility] Physical Therapy [facility] [address] [place] [address] / REHABILITATION SERVICES INITIAL EVALUATION MR#: [id number] Acct: [id number] Name: SHAR WESTON Rep #: [id number] : 1955 69 From: Prashant Bennett DPT Referring Dr.: JERI Huber Status: REG RCR Insurance: [employer] SELF PAY INSURANCE Patient's Visit Information Visit Information Visit Information: SHAR WESTON is a 69 year old F referred to Physical Therapy by JERI Huber with a diagnosis of L knee pain, L knee effusion, popliteal cyst. Date of Evaluation: 07/12/24 Physical Therapist: Prashant Bennett DPT Visit Plan Frequency: 2x /Week Duration: 6 Weeks Plan: 1) L knee stability exercises including balance avoiding hyper extension 2) gym progression working on quad, HS and glute medius strengthening. 3) may use vaso and ice as needed for edema. Subjective Subjective: Pt. is here today for her initial evaluation with diagnosis of L popliteal cyst, L knee effusion. Pt. reports having pain on and off for a year, but has been progressively getting worse. She had a lot of pain the last few weeks then last week at intense pain in her calf and posterior knee. Physician said she most likely ruptured her bursa causing her increased pain. Pt. reports having an MRI which was relatively clean. Pt. reports being very active both with hiking and with dancing. She has been dance less recently due to her pain. Pt. is planning an large hike in [place] this coming summer and fall. Pt. reports working out in gym, but has done less recently due to work schedule. Pt. denies n/T, no giving out of her knee with activities. Pt. is hopeful to reduce symptoms and get back to all recreational activities without limitations. Pt. is suppose to start a steroid today for her edema. Pain L posterior knee: Pain Intensity (Out of 10): 2 Pain Intensity Range: 1 and 6 Objective Objective: POSTURE: Pt. has normal posture in stance. Pt. has no marked wt. shifting and no marked varus/valgus positioning. PALPATION: Pt. has increased tenderness throughout popliteal fossa. Mild tenderness at distal HS. NEURO: normal throughout sensation, DTR and is able to rise on heels and toes. ROM: Pt. has full ROM without increase in symptoms. Pt. has normal HS length bilaterally. Pt. has normal quad length. Pt. has marked hypermobility in B knee and hip joints. MMT: Pt. has good strength without increase in symptoms. GAIT: fairly normal gait pattern without increase in symptoms. STAIRS: Pt. has mild increase in symptoms with descending. SLS: Pt. did have increased difficulty and slight increase in symptoms with L SLS. Pt. able to complete for 21 sec, but did have increased symptoms lucio attempting to recover her stability. Pt. did have some symptoms with Alex testing with greater flexion and IR rotation. Pt did have a + disc with increased depth. Pt. have great squat mechanics with full depth without increase in symptoms. Pt. 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 to be I with HEP. Goal Time Frame: 4-6 Weeks Goal 2:: STG: Pt. to be able to walk unlimited distances without increase in L knee pain. Goal Time Frame: 2-4 Weeks Goal 3:: LTG: Pt. to complete SLS on L side with good knee stability and no increase in symptoms. Goal Time Frame: 4-6 Weeks Goal 4:: LTG: Pt. to have no edema in LLE after doing all dancing and working out. Goal Time Frame: 4-6 Weeks Rehabilitation Potential Physical Therapy Diagnosis: Pt. has signs and symptoms consistent with L knee pain, L knee effusion, popliteal cyst. Pt. has decent strength, but did have symptoms when put into twisted motions or uneven positions. Pt. would benefit from PT to increase L knee stability in order to increase tolerance to all dynamic mobility, ie hiking and dancing. Rehabilitation Potential: Excellent Anticipated Interventions Patient/Client Instruction: Educate patient on: Condition, Plan of Care, Risk Factors and Benefits of Fitness Program For the Purpose of:: To improve safety, To improve health and function, To foster healthy habits, To improve decision making, To facilitate caregiver knowledge, To improve self management, To prevent re-injury and To improve ability to perform tasks related to life management Therapeutic Exercise to Include: Strength training, Power training, Balance training and Gait and locomotor training For the Purpose of:: To decrease pain, To decrease swelling/inflammatio n, To increase ROM, To improve nutrient delivery to tissue, To increase oxygenation perfusion and To improve health of tissue Cryotherapy (ice pack, ice massage): Yes Vasopneumatic device: Yes For the Purpose of:: To decrease pain and To (more content not included)... Normal [facility] Venous duplex ultrasound rep ortOrdered By: Daniel Jacobo on 06-26-2024 US Vein [facility] [address] [place] [address] Venous Duplex US, Unilateral 06/24/24 1554 MR#: [id number] Acct: [id number] Name: SHAR WESTON Rep #:[id number] : 1955 69 From: Daniel Jalloh Attending Dr: JERI Huber Statu s: REG CLI Ordering Dr: Bing Lora Date: Location: CVS Sex: F C Admitted: Reason For Study Reason For Study: Pain RIGHT LEFT CFV is compressible, spontaneous, phasic, competent GSV is normal. and demonstrates normal augmentation. CFV is compressible, spontaneous, phasic, competent, Procedure and demonstrates normal augmentation. This is a venous duplex using B-mode, color flow and FV is compressible, spontaneous, phasic, competent spectral Doppler. and demonstrates normal augmentation. Exam performed in department. POP V is compressible, spontaneous, phasic, competent A preliminary report was called and/or faxed to [facility] and demonstrates normal augmentation. JERI Lora. T/P Trunk is compressible. PTV is compressible. LT PerV is compressible. VL/Venous Duplex US, Unilateral Interpretation Summary Deep veins of the left lower extremity are patent and compressible segmentally. There is no evidence of left lower extremity deep vein thrombosis. The left great saphenous vein appears patent andcompressible segmentally. Ordering Physician: Bing Lora Referring Physician: Marly Cox M.D. Performed By: Suha Das RVT and Student 06/26/24 1347 Date _ Daniel Jacobo MD CC: Dr. Marly Cox MD; JERI Huber ~ Date Dictated: 06/24/24 1554 Date Transcribed: 06/26/24 134 Yard Rigger: Signed [facility] Work Phone: Venous Duplex US, Unilateral on 06-24-2024 Venous Duplex US, Unilateral [facility] [address] [place] [address] Venous Duplex US, Unilateral 06/24/24 1554 MR#: [id number] Acct: [id number] Name: SHAR WESTON Rep #: [id number] : 1955 69 From: Daniel Jacobo MD Attending Dr: JERI Huber Status: REG CLI Ordering Dr: Bing Lora Date: 06/24/24 Location: CVS Sex: F C Admitted: Reason For Study Reason For Study: Pain RIGHT LEFT CFV is compressible, spontaneous, phasic, competent GSV is normal. and demonstrates normal augmentation. CFV is compressible, spontaneous, phasic, competent, Procedure and demonstrates normal augmentation. This is a venous duplex using B-mode, color flow and FV is compressible, spontaneous, phasic, competent spectral Doppler. and demonstrates normal augmentation. Exam performed in department. POP V is compressible, spontaneous, phasic, competent A preliminary report was called and/or faxed to [facility] and demonstrates normal augmentation. JERI Lora. T/P Trunk is compressible. PTV is compressible. LT PerV is compressible. VL/Venous Duplex US, Unilateral Interpretation Summary Deep veins of the left lower extremity are patent and compressible segmentally. There is no evidence of left lower extremity deep vein thrombosis. The left great saphenous vein appears patent and compressible segmentally. Ordering Physician: Bing Lora Referring Physician: Marly Cox M.D. Performed By: Suha Das RVT and Student 06/26/24 1347 Date Daniel Jacobo MD CC: Dr. Marly Cox MD; JERI Huber Date Dictated: 06/24/24 1554 Date Transcribed: 06/26/24 1347 Yard Rigger: Signed Normal [facility] PT D/C Summary (1)on 024 PT D/C Summary (1) [facility] Physical Therapy [address] [place] [address] / REHABILITATION SERVICES DISCHARGE SUMMARY MR#: [id number] Acct: [id number] Name: TRISTAXIMENAMAYKEL Blackman Rep #: [id number] : 1955 68 From: Jaylan Noriega PT, Cert. T, OCS Referring Dr.: Dr. Reginald Patricia DO Status: REG RCR Insurance: [facility] SELF PAY INSURANCE Discharge Summary D/C summary: It has been my pleasure to treat SHAR WESTON referred by Dr. Reginald Patricia DO, with the diagnosis of SCIATICS ,LEFT for a total of 7 visit(s). Discharge Date: Please see the following information for a summary of their discharge status. Subjective Subjective: Less leg symptoms in leg ,occasionally in knee happy with progress but goal is 100 % Would like more WB on machines Pain Left Knee: Pain Intensity (Out of 10): 2 Overall Improvement % Improvement: 75 Objective Objective/Function: POSTURE: mild forward posture GAIT: reciprocal pattern SYMMETRIES: align PALAPTION: unremarkable sight lateral hamstrings MMT: quads/hams 5/5 ,hip flexion 5/5 ,hip abduction 4/5 ,ankle 5/5 FLEXABILITY: hypermobile hip ,hamstrings AROM: knee flexion supine 0-145 degrees no pain LUMBAR ROM: WNL flexion,extension ,side glides Goals Goal 1:: Patient to be I with HEP Goal Progress: Progressing Goal 2:: Patient to demonstrate 50% improvenet with pain and function Goal 3:: Patient be able to perform all functional activities standing/walking with job demands and sitting without symptoms Goal 4:: Patient to improve back oswestry score by 5 points to improve QOL and function Plan Plan: Requesting 6 visits PT INTERVENTIONS DLS ,POSTURAL EX'S , WB ACTIVITIES AND FUNCTIONAL STRENGTHENINg D/C Information d/c sentence: If there are questions or concerns regarding this patient's physical therapy, please feel free to call me at [phone]. Thank you for the referral of this patient. Sincerely, Jaylan Noriega, PT, Cert MDT, OCS Balance/Gait/Functio nal tests Balance/Special Test Scores Oswestry Low Back Score: 15 Improvement % Improvement: 75 03/31/24 1704 CC: Dr. Reginald Patricia DO JLA Signed Normal [facility] 12 Lead EKGon 03-03-2024 12 Lead EKG [facility] [address] [place] [address] 12 Lead EKG 03/03/24 0221 MR#: [id number] Acct: [id number] Name: SHAR WESTON Rep #: [id number] : 1955 68 From: Carlos Harden MD Attending Dr: Status: DEP ER Ordering Dr: Kelvin Link DO Date: 03/03/24 Location: ED Sex: F C Admitted: Test Reason : SYNCOPE Blood Pressure : */* mmHG Vent. Rate : 62 BPM Atrial Rate : 62 BPM P-R Int : 130 ms QRS Dur : 82 ms QT Int : 438 ms P-R-T Axes : 67 6 47 degrees QTcB Int : 444 ms Normal sinus rhythm Low voltage QRS Borderline ECG Confirmed by Carlos Harden ([id number]), photography editor LILIA ENLGISH ([id number]) on 03/03/2024 10:03:02 AM Referred By: Confirmed By: Carlos Harden 03/03/24 1003 Date Carlos Harden MD CC: Dr. Marly Cox MD; Kelvin Link DO Signed Normal [facility] Basic Metabolic Profile (BMP )on 03-03-2024 BUN/CRE 20.1 RATIO High 10-20 [facility] Comment on above: Order Comment: 'TROP ' Serial specimen #1, #2 or #3: 1 Performed By: #### L 501.9520, L501.4020, L100.0100, L501.5200, L500.2500 ####[facility] [address] [place], [address] CA,Total 9.5 mg/dL Normal 8.5-10.1 [facility] Comment on above: Order Comment: 'TROP ' Serial specimen #1, #2 or #3: 1 Performed By: #### L 501.9520, L501.4020, L100.0100, L501.5200, L500.2500 ####[facility] [address] [place], [address] Chloride [Moles/Vol] 107 mmol/L Normal 98-107 [facility] Comment on above: Order Comment: 'TROP ' Serial specimen #1, #2 or #3: 1 Performed By: #### L 501.9520, L501.4020, L100.0100, L501.5200, L500.2500 ####[facility] [address] [place], [address] CO2 [Moles/Vol] 29.0 mmol/L Normal 21.0-32.0 [facility] Comment on above: Order Comment: 'TROP ' Serial specimen #1, #2 or #3: 1 Performed By: #### L 501.9520, L501.4020, L100.0100, L501.5200, L500.2500 ####[facility] [address] [place], [address] Creatinine [Mass/Vol] 0.70 mg/dL Normal 0.55-1.02 [facility] Comment on above: Order Comment: 'TROP ' Serial specimen #1, #2 or #3: 1 Result Comment: The validity of the calculated GFR GFRAA in patients over 70 years has not been determined. Clinical correlation is essential. Performed By: #### L 501.9520, L501.4020, L100.0100, L501.5200, L500.2500 ####[facility] [address] [place], [address] ECRCL 24.48 ml/min Normal [facility] Comment on above: Order Comment: 'TROP ' Serial specimen #1, #2 or #3: 1 Performed By: #### L 501.9520, L501.4020, L100.0100, L501.5200, L500.2500 ####[facility] [address] [place], [address] EST GFR - AA 107 mL/min Normal >60 [facility] Comment on above: Order Comment: 'TROP ' Serial specimen #1, #2 or #3: 1 Result Comment: Afri can Martiniquais GFR Calc Performed By: #### L 501.9520, L501.4020, L100.0100, L501.5200, L500.2500 ####[facility] [address] [place], [address] GAP 5 Normal 5-15 [facility] Comment on above: Order Comment: 'TROP ' Serial specimen #1, #2 or #3: 1 Performed By: #### L 501.9520, L501.4020, L100.0100, L501.5200, L500.2500 ####[facility] [address] [place], [address] GFR/1.73 sq M.predicted among non-blacks MDRD (S/P/Bld) [Vol rate/Area] 88 mL/min/{1.73_m2} Normal >60 [facility] Comment on above: Order Comment: 'TROP ' Serial specimen #1, #2 or #3: 1 Result Comment: Non- GFR Calc Performed By: #### L 501.9520, L501.4020, L100.0100, L501.5200, L500.2500 ####[facility] [address] [place], [address] Glucose [Mass/Vol] 105 mg/dL Normal 74-106 [facility] Comment on above: Order Comment: 'TROP ' Serial specimen #1, #2 or #3: 1 Result Comment: Fast ing Glucose result from 100 to 125 mg/dL suggests IMPAIRED HOMEOSTASIS per A.D.A. criteria. Performed By: #### L 501.9520, L501.4020, L100.0100, L501.5200, L500.2500 ####[facility] [address] [place], [address] Potassium [Moles/Vol] 3.7 mmol/L Normal 3.5-5.1 [facility] Comment on above: Order Comment: 'TROP ' Serial specimen #1, #2 or #3: 1 Performed By: #### L 501.9520, L501.4020, L100.0100, L501.5200, L500.2500 ####[facility] [address] [place], [address] Sodium [Moles/Vol] 140 mmol/L Normal 136-145 [facility] Comment on above: Order Comment: 'TROP ' Serial specimen #1, #2 or #3: 1 Performed By: #### L 501.9520, L501.4020, L100.0100, L501.5200, L500.2500 ####[facility] [address] [place], [address] Urea nitrogen [Mass/Vol] 14 mg/dL Normal 7-18 [facility] Comment on above: Order Comment: 'TROP ' Serial specimen #1, #2 or #3: 1 Performed By: #### L 501.9520, L501.4020, L100.0100, L501.5200, L500.2500 ####[facility] [address] [place], [address] CBC W/Diff, Automatedon 11-0 -2023 Absolute Lymph 2.22 X10 3/uL Normal 0.83-4.51 [facility] Comment on above: Performed By: #### L 501.9520, L501.4020, L100.0100, L501.5200, L500.2500 #### [facility] [address] [place], [address] Absolute Neut 7.3 X10 3/uL Normal 2.0-7.7 [facility] Comment on above: Performed By: #### L 501.9520, L501.4020, L100.0100, L501.5200, L500.2500 #### [facility] [address] [place], [address] Basophils/100 WBC (Bld) 0.9 % Normal 0-1 [facility] Comment on above: Performed By: #### L 501.9520, L501.4020, L100.0100, L501.5200, L500.2500 #### [facility] [address] [place], [address] Eosinophils/100 WBC (Bld) 3.4 % Normal 0-5 [facility] Comment on above: Performed By: #### L 501.9520, L501.4020, L100.0100, L501.5200, L500.2500 #### [facility] [address] [place], [address] Erythrocyte distribution width (RBC) [Ratio] 13.1 % Normal 11.6-14.6 [facility] Comment on above: Performed By: #### L 501.9520, L501.4020, L100.0100, L501.5200, L500.2500 #### [facility] [address] [place], [address] Hematocrit (Bld) [Volume fraction] 39.6 % Normal 37-47 [facility] Comment on above: Performed By: #### L 501.9520, L501.4020, L100.0100, L501.5200, L500.2500 #### [facility] [address] [place], [address] Hemoglobin (Bld) [Mass/Vol] 13.1 g/dL Normal 12.0-15.0 [facility] Comment on above: Performed By: #### L 501.9520, L501.4020, L100.0100, L501.5200, L500.2500 #### [facility] [address] [place], [address] IG% 0.600 Normal 0.0-0.9 [facility] Comment on above: Result Comment: IG% - Immature Granulocytes (promyelocytes, myelocytes and metamyelocytes) > 1% indicates that a LEFT SHIFT is Present. Performed By: #### L 501.9520, L501.4020, L100.0100, L501.5200, L500.2500 #### [facility] [address] [place], [address] Lymphocytes/100 WBC (Bld) 20.1 % Normal 19-41 [facility] Comment on above: Performed By: #### L 501.9520, L501.4020, L100.0100, L501.5200, L500.2500 #### [facility] [address] [place], [address] MCH (RBC) [Entitic mass] 29.5 pg Normal 27.0-32.0 [facility] Comment on above: Performed By: #### L 501.9520, L501.4020, L100.0100, L501.5200, L500.2500 #### [facility] [address] [place], [address] MCHC (RBC) [Mass/Vol] 33.1 g/dL Normal 32-36 [facility] Comment on above: Performed By: #### L 501.9520, L501.4020, L100.0100, L501.5200, L500.2500 #### [facility] [address] [place], [address] MCV (RBC) [Entitic vol] 89.2 fL Normal 81-99 [facility] Comment on above: Performed By: #### L 501.9520, L501.4020, L100.0100, L501.5200, L500.2500 #### [facility] [address] [place], [address] Monocytes/100 WBC (Bld) 8.7 % Normal 0-10 [facility] Comment on above: Performed By: #### L 501.9520, L501.4020, L100.0100, L501.5200, L500.2500 #### [facility] [address] [place], [address] Neutrophils/100 WBC (Bld) 66.3 % Normal 47-70 [facility] Comment on above: Performed By: #### L 501.9520, L501.4020, L100.0100, L501.5200, L500.2500 #### [facility] [address] [place], [address] Nucleated RBC (Bld) [#/Vol] 0 10*3/uL Normal 0-5 [facility] Comment on above: Performed By: #### L 501.9520, L501.4020, L100.0100, L501.5200, L500.2500 #### [facility] [address] [place], [address] Platelet mean volume (Bld) [Entitic vol] 8.3 fL Normal 6.2-12.0 [facility] Comment on above: Performed By: #### L 501.9520, L501.4020, L100.0100, L501.5200, L500.2500 #### [facility] [address] [place], [address] Platelets (Bld) [#/Vol] 312 10*3/uL Normal 150-450 [facility] Comment on above: Performed By: #### L 501.9520, L501.4020, L100.0100, L501.5200, L500.2500 #### [facility] [address] [place], [address] RBC (Bld) [#/Vol] 4.44 10*6/uL Normal 4.2-5.4 [facility] Comment on above: Performed By: #### L 501.9520, L501.4020, L100.0100, L501.5200, L500.2500 #### [facility] [address] [place], [address] RDW SD 42.3 fl Normal 35.1-43.9 [facility] Comment on above: Performed By: #### L 501.9520, L501.4020, L100.0100, L501.5200, L500.2500 #### [facility] [address] [place], [address] WBC (Bld) [#/Vol] 11.0 10*3/uL Normal 4.4-11.0 [facility] Comment on above: Performed By: #### L 501.9520, L501.4020, L100.0100, L501.5200, L500.2500 #### [facility] [address] [place], [address] Emergency Department Summary on 03-03-2024 Emergency Department Summary [facility] Medical Records Department [address] [place] [address] Emergency Department Summary 03/03/24 MR#: [id number] Acct: [id number] Name: SHAR WESTON Rep #: [id number] : 1955 68 From: Kelvin Link DO PCP: Dr. Marly Cox MD Status:DEP ER Location: ED HPI History of Present Illness Chief Complaint: Syncope Informant: patient and spouse/S.O. Narrative Narrative: Patient is a 68-year-old female with past medical history of anxiety IBS and migraine headache. She states that this evening she was sleeping on the couch and then she awoke and went walking into the kitchen. She states as she was doing this she felt an overwhelming sensation of fatigue. She states that she got tunnel vision and her hearing went down and she felt like she was going to pass out. She states she was able to lower herself to the floor and then had a brief bout of loss of consciousness. She denies striking her head or any history of bleeding disorder or blood thinner use. states that he did see this and confirm she did not strike her head. He states she was out for approximately 1 to 2 minutes. He states there is no obvious seizure-like activity. When she awoke she knew who she was and where she was at but states he took her blood pressure and it was low at approximately 80/50. The patient denies any recent bouts of nausea vomiting diarrhea or acute blood loss. She denies any palpitations prior to the syncopal event. However secondary to its occurrence she was brought in for evaluation [facility] Medical History Acute upper respiratory infection Contact with or suspected exposure to other viral communicable disease Migraine Osteoporosis Family history of coronary artery disease IBS (irritable bowel syndrome) Anxiety Palpitations Home Medications ???Medication ???Instructions ???Recorded ???Last Taken ???Type calcium carbonate 1,000 mg PO DAILY 08/12/18 04/06/19 History cholecalciferol (vitamin D3) 125 125 mcg PO DAILY 12/06/21 Unknown History mcg (5,000 unit) capsule alendronate 70 mg tablet 70 mg PO QWEEK 03/03/24 Unknown History Allergy/AdvReac Type Severity Reaction Status Date / Time Penicillins AdvReac rash Verified 03/03/24 01:36 sulfamethoxazole (From AdvReac rash Verified 03/03/24 01:36 Bactrim) trimethoprim (From Bactrim) AdvReac rash Verified 03/03/24 01:36 Family History Father Heart disease Myocardial infarction Mother CVA (cerebral vascular accident) Brother Heart disease PCI Myocardial infarction Social History Smoking Status: Never smoker alcohol intake: current alcohol intake frequency: 0-2 drinks per day Alcohol type: wine substance use type: does not use caffeine: Yes Type: coffee and tea what type of physical activity do you participate in: bicycling frequency: 3-4 times per week duration: 30-45 minutes/day seatbelt use: always do you feel safe at home: Yes ROS ROS ED Constitutional Constitutional ED: Denies chills or fever(s) Eyes Eyes: Denies blurry vision, change in vision or diplopia ENT ENT ED: Denies sore throat Cardiovascular Cardiovascular: Reports other Details: Positive syncope ; Denies chest pain, palpitations or racing heartbeat Respiratory/Chest Respiratory/Chest: Denies cough or dyspnea Gastrointestinal Gastrointestinal: Denies abdominal pain, diarrhea, nausea or vomiting Genitourinary Genitourinary ED: Denies dysuria Musculoskeletal Musculoskeletal: Denies back pain or neck pain Integumentary Denies rash Neurologic Neurologic: Denies headache(s), paresthesias or weakness Hematologic/Lymphati c Hematologic/Lymphati c: Denies easy bleeding or easy bruising EXAM Physical Exam Const Vital Signs: 03/03/24 01:36 03/03/24 01:52 03/03/24 02:04 Temperature 97.5 F L Temperature Source Oral Pulse Rate 67 Pulse Rate [Lying] 65 Pulse Rate [Sitting (for 1 minute prior to obtaining)] 64 Pulse Rate [Standing (for 1 minute prior to obtaining)] 72 Respiratory Rate 16 Respiratory Effort Normal Non-Labored Blood Pressure 106/54 L Blood Pressure [Lying] 112/66 Blood Pressure [Sitting (for 1 minute prior to obtaining)] 110/63 Blood Pressure [Standing (for 1 minute prior to obtaining)] 115/75 Blood Pressure Mean 71 Blood Pressure Mean [Lying] 81 Blood Pressure Mean [Sitting (for 1 minute prior to obtaining)] 78 Blood Pressure Mean [Standing (for 1 minute prior to obtaining)] 88 Pulse Ox 100 Oxygen Delivery Method Room Air 03/03/24 03:36 03/03/24 03:49 Temperature 98.4 F Temperature Source Pulse Rate 73 72 Pul (more content not included)... Normal [facility] L501.4020on 03-03-2024 TROPONIN-I HS 9 pg/mL Normal 3.0-54.0 [facility] Comment on above: Order Comment: 'TROP ' Serial specimen #1, #2 or #3: 1 Result Comment: Tiffany maldonado Note: New Test Units and Gender Specific Reference Ranges. For more information see Policy Stat Procedure Bevier High Sensitivity Troponin (TNIH) and attachments. Performed By: #### L 501.9520, L501.4020, L100.0100, L501.5200, L500.2500 ####[facility] [id number] [place], [address] Magnesiumon 03-03-2024 Magnesium [Mass/Vol] 2.3 mg/dL Normal 1.6-2.6 [facility] Comment on above: Order Comment: 'TROP ' Serial specimen #1, #2 or #3: 1 Performed By: #### L 501.9520, L501.4020, L100.0100, L501.5200, L500.2500 ####[facility] [id number] [place], [address] Thyroid Stim Hormone (TSH)on 03-03-2024 TSH 2.660 uIU/mL Normal 0.358-3.740 [facility] Comment on above: Order Comment: 'TROP ' Serial specimen #1, #2 or #3: 1 Performed By: #### L 501.9520, L501.4020, L100.0100, L501.5200, L500.2500 ####[facility] [id number] [place], [place], [address] Re-Evaluation - PT (1)on Re-Evaluation - PT (1) [facility] Physical Therapy [address] [place] [address] / REEVALUATION / MEDICARE RECERTIFICATION PHYSICAL THERAPY MR#: [id number] Acct: [id number] Name: SHAR WESTON Rep #: [id number] : 1955 68 From: Jaylan Noriega PT, Cert. T, OCS Referring Dr.: Dr. Reginald Patricia DO Status:REG RC R Insurance: [facility] SELF PAY INSURANCE Re-Evaluation Intro: Dr. Reginald Patricia DO, It has been my pleasure to treat SHAR WESTON over the last 7 visits for SCIATICS ,LEFT. Please see the progress note below for an update on the physical therapy plan of care! Subjective Subjective: Less leg symptoms in leg ,occasionally in knee happy with progress but goal is 100 % Would like more WB on machines Objective Objective/Function: POSTURE: mild forward posture GAIT: reciprocal pattern SYMMETRIES: align PALAPTION: unremarkable sight lateral hamstrings MMT: quads/hams 5/5 ,hip flexion 5/5 ,hip abduction 4/5 ,ankle 5/5 FLEXABILITY: hypermobile hip ,hamstrings AROM: knee flexion supine 0-145 degrees no pain LUMBAR ROM: WNL flexion,extension ,side glides Plan Plan Plan: Requesting 6 visits PT INTERVENTIONS DLS ,POSTURAL EX'S , WB ACTIVITIES AND FUNCTIONAL STRENGTHENINg Balance/Gait/Functio nal tests Balance/Special Test Scores Oswestry Low Back Score: 15 Goals Goals Goal 1:: Patient to be I with HEP Goal Time Frame: 4-6 Weeks Goal Progress: Progressing Goal 2:: Patient to demonstrate 50% improvenet with pain and function Goal Time Frame: 4-6 Weeks Goal 3:: Patient be able to perform all functional activities standing/walking with job demands and sitting without symptoms Goal Time Frame: 4-6 Weeks Goal 4:: Patient to improve back oswestry score by 5 points to improve QOL and function Goal Time Frame: 4-6 Weeks Anticipated Interventions Anticipated Interventions Patient/Client Instruction: Educate patient on: Condition and Plan of Care For the Purpose of:: To decrease pain, To improve muscle performance and motor function, To increase tolerance to activity/condition/p osition, To improve ability of physical actions for home/community/work/ leisure, To improve health of tissue, To decrease soft tissue restriction, To increase flexibility/ROM, To assume or resume ADL's, To reduce risk of recurrence, To improve health and function and To improve tolerance to ADL's Therapeutic Exercise to Include: Strength training, Body mechanics, Postural training, Dynamic Lumbar Stabilization and Lucien Exercises Comment: BLE For the Purpose of:: To decrease pain, To improve muscle performance and motor function, To increase tolerance to activity/condition/p osition, To improve ability of physical actions for home/community/work/ leisure, To improve endurance and To reduce risk of recurrence Re-Evaluation Ending Re-evaluation ending: Please do not hesitate to contact me at [phone] by phone or if you have questions or concerns regarding this new plan of care! Sincerely, Jaylan Noriega, PT, Cert MDT, OCS 02/08/24 1103 CC: Dr. Reginald Patricia, LINA Signed For Medicare only, by signing this I certify the plan of care. Physicians Signature Date Normal [facility] Inital Evaluation (1) - PTon 01-11-2024 Inital Evaluation (1) - PT [facility] Physical Therapy [facility] [address] [place] [address] / REHABILITATION SERVICES INITIAL EVALUATION MR#: [id number] Acct: [id number] Name: SHAR WESTON Rep #: [id number] : 1955 68 From: Jaylan Noriega PT, Cert. T, OCS Referring Dr.: Dr. Reginald Patricia DO Status: REG RCR Insurance: [employer] SELF PAY INSURANCE Patient's Visit Information Visit Information Visit Information: SHAR WESTON is a 68 year old F referred to Physical Therapy by Dr. Reginald Patricia DO with a diagnosis of SCIATICS ,LEFT. Date of Evaluation: 01/11/24 Physical Therapist: Jaylan Noriega, PT, Cert T, OCS Visit Plan Frequency: 2x /Week Duration: 4 Weeks Plan: PT INTERVENTIONS DLS ,POSTURAL EX'S , WB ACTIVITIES AND FUNCTIONAL STRENGTHENING Subjective Subjective: This 68 y/o female presents to physical therapy with left sciatica. Patient has left knee pain barbie November 19 2023 with [address] Patient ahs difficulty going up down steps and plane ride for 6 hours difficulty walking. Seen DR did x-rays knee -. Prescribed prednisone. Pain is intermittent hamstring and calf proximal. Patient has mo MRI. Patient Aggravating sitting to elevation ,bening ,lifting. Alleviating factors walking . Dr wants to try PT and if not better will do MRI. Coughing/sneezing -. Bowel/bladder-. No abnormal night pain. Denies paresthesia/tingling -. Patient condition affects QOL/function. 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 Pain Left Knee: Pain Intensity (Out of 10): 2 Pain Intensity Range: 10 Objective Objective: POSTURE: mild forward posture GAIT: reciprocal pattern SYMMETRIES: align PALAPTION: unremarkable sight lateral hamstrings MMT: quads/hams 5/5 ,hip flexion 5/5 ,hip abduction 4/5 ,ankle 5/5 FLEXABILITY: hypermobile hip ,hamstrings AROM: knee flexion supine 0-145 degrees no pain LUMBAR ROM: WNL flexion,extension ,side glides Special Tests L/S Slump test left side: Negative L/S Left Straight Leg Raise: Negative L/S Right Straight Leg Raise: Negative Lumbar Standing: Flexion - Mechanical Response: No effect Lumbar Standing: Flexion - Symptoms During Testing: No effect Lumbar Standing: Flexion - Symptoms After Testing: No effect Lumbar Standing: Extension - Mechanical Response: No effect Lumbar Standing: Extension - Symptoms During Testing: No effect Lumbar Standing: Extension - Symptoms After Testing: No effect Lumbar Standing: Right Side Glides - Mechanical Response: No effect Lumbar Standing: Right Side Hume - Symptoms During Testing: No effect Lumbar Standing: Right Side Hume - Symptoms After Testing: No effect Lumbar Standing: Left Side Hume - Mechanical Response: No effect Lumbar Standing: Left Side Hume - Symptoms During Testing: No effect Lumbar Standing: Left Side Hume - Symptoms After Testing: No effect Lumbar Lying: Flexion - Mechanical Response: No effect Lumbar Lying: Flexion - Symptoms During Testing: Increases Lumbar Lying: Flexion - Symptoms After Testing: No worse Lumbar Lying: Extension - Mechanical Response: No effect Lumbar Lying: Extension - Symptoms During Testing: Decreases Lumbar Lying: Extension - Symptoms After Testing: Better L Knee Paige - Meniscus: Negative L Knee Yari - ACL: Negative L Knee Anterior Drawer - ACL: Negative L Knee Posterior Drawer - PCL: Negative L Knee Valgus - MCL: Negative L Knee Varus - LCL: Negative Balance/Special Test Scores Oswestry Low Back Score: 23 Goals Goal 1:: Patient to be I with HEP Goal Time Frame: 4-6 Weeks Goal 2:: Patient to demonstrate 50% improvenet with pain and function Goal Time Frame: 4-6 Weeks Goal 3:: Patient be able to perform all functional activities standing/walking with job demands and sitting without symptoms Goal Time Frame: 4-6 Weeks Goal 4:: Patient to improve back oswestry score by 5 points to improve QOL and function Goal Time Frame: 4-6 Weeks Rehabilitation Potential Physical Therapy Diagnosis: This patient has h/o osteoporosis with back symptoms occurred with prolonged slouched sitting , no production with testing knee special test and MTT ,positioning or motion testing NW/NB , except flexion produce left lumbar ,patient has excessive motion and weak core thus benefit from skilled PT Rehabilitation Potential: Good Anticipated Interventions Patient/Client Instruction: Educate patient on: Condition and Plan of Care For the Purpose of:: To decrease pain, To improve muscle performance and motor function, To increase tolerance to activity/condition/p osition, To improve ability of physical actions for home/com munity/work/leisure, To improve health of tissue, To decrease soft tissue restriction, To increase flexibility/ROM, To assume or resume ADL's, To reduce risk of recurrence, To (more content not included)... Normal [facility] DBT Breast - bilateral scree zakmurphy 10-15-2023 IMPRESSION: NEGATIVE There is no mammographic evidence of malignancy. A 1 year screening mammogram is recommended. Roland Mitchell M.D. pt/kt:10/15/2023 15:51:42 R&D Lab Technician(s): Fely Chavis RT(R)(M), [facility] letter sent: Normal over 40 Mammogram BI-RADS: 1 Negative Multiple national specialty organizations have released breast cancer screening guidelines for women at average risk for developing breast cancer - guidelines that are based on both evidence and opinion, yet differ on when to start and how often to screen for breast cancer. With representation from Breast Imaging, Internal Medicine, Women's Health, Family Medicine, and Medical/Surgical Oncology, the [facility] has carefully reviewed the data and reached the following consensus: 1) All women should engage in shared decision-making with their providers to decide when to start and how often to screen; 2) All women should have the opportunity to start screening mammography at age 40; 3) For women ages 45-55, we recommend annual screening mammograms; 4) For women ages 55 and over, we support both the transition from an annual to a biennial interval if this aligns more with patient's values and preferences, or continuation with annual screening; 5) All women should discuss with their providers when to stop screening mammograms. Yard Rigger: Kt Transcribe Date/Time: Oct 15 2023 10:10A Dictated by: ROLAND MITCHELL MD This examination was interpreted and the report reviewed and electronically signed by: ROLAND MITCHELL MD on Oct 15 2023 3:51PM [facility] DIVISION OF RADIOLOGY * * *Final Report* * * DATE OF EXAM: Oct 15 2023 10:38AM [facility] 0582 - [facility] SCREENING W PANCHO / PROCEDURE REASON: Encounter for screening mammogram for malignant neoplasm of breast * * * * Physician Interpretation * * * * RESULT: #[id number] - MANO[facility] SCREENING W PANCHO BILATERAL DIGITAL SCREENING MAMMOGRAM TOMOSYNTHESIS WITH CAD: 10/15/2023 HISTORY: /Screening Mammogram with PANCHO - patient reports NO breast symptoms /priors available for comparison Encounter For Screening Mammogram For Malignant Neoplasm Of Breast. RESULT: TECHNIQUE: The study was acquired using full field digital technology and interpreted from soft copy. Digital Breast Tomosynthesis (DBT) images were obtained and used to assist in the interpretation of this examination. Current study was also evaluated with a Computer Aided Detection (CAD). Comparison is made to exams dated: 08/25/2022 mammogram - [facility], 08/23/2021 mammogram - [facility], 08/07/2021 mammogram, and 05/05/2013 mammogram - [facility]. The breasts are heterogeneously dense, which may obscure small masses. No significant masses, calcifications, or other findings are seen in either breast. There has been no significant interval change. DIVISION OF RADIOLOGY Provider, [facility] - 10/15/2023 * * *Final Report* * * DATE OF EXAM: Oct 15 2023 10:38AM [facility] 0582 - [facility] SCREENING W PANCHO / PROCEDURE REASON: Encounter for screening mammogram for malignant neoplasm of breast * * * * Physician Interpretation * * * * RESULT: #[id number] - [facility] SCREENING W PANCHO BILATERAL DIGITAL SCREENING MAMMOGRAM TOMOSYNTHESIS WITH CAD: 10/15/2023 HISTORY: /Screening Mammogram with PANCHO - patient reports NO breast symptoms /priors available for comparison Encounter For Screening Mammogram For Malignant Neoplasm Of Breast. RESULT: TECHNIQUE: The study was acquired using full field digital technology and interpreted from soft copy. Digital Breast Tomosynthesis (DBT) images were obtained and used to assist in the interpretation of this examination. Current study was also evaluated with a Computer Aided Detection (CAD). Comparison is made to exams dated: 08/25/2022 mammogram - [facility], 08/23/2021 mammogram - [facility], 08/07/2021 mammogram, and 05/05/2013 mammogram - [facility]. The breasts are heterogeneously dense, which may obscure small masses. No significant masses, calcifications, or other findings are seen in either breast. There has been no significant interval change. IMPRESSION IMPRESSION: NEGATIVE There is no mammographic evidence of malignancy. A 1 year screening mammogram is recommended. Roland Mitchell M.D. pt/kt:10/15/2023 15:51:42 R&D Lab Technician(s): RT Elsy(R)(M), [facility] letter sent: Normal over 40 Mammogram BI-RADS: 1 Negative Multiple national specialty organizations have released breast cancer screening guidelines for women at average risk for developing breast cancer - guidelines that are based on both evidence and opinion, yet differ on when to start and how often to screen for breast cancer. With representation from Breast Imaging, Internal Medicine, Women's Health, Family Medicine, and Medical/Surgical Oncology, the [facility] has carefully reviewed the data and reached the following consensus: 1) All women should engage in shared decision-making with their providers to decide when to start and how often to screen; 2) All women should have the opportunity to start screening mammography at age 40; 3) For women ages 45-55, we recommend annual screening mammograms; 4) For women ages 55 and over, we support both the transition from an annual to a biennial interval if this aligns more with patient's values and preferences, or continuation with annual screening; 5) All women should discuss with their providers when to stop screening mammograms. Yard Rigger: Kt Transcribe Date/Time: Oct 15 2023 10:10A Dictated by: ROLAND MITCHELL MD This examination was interpreted and the report reviewed and electronically signed by: ROLAND MITCHELL MD on Oct 15 2023 3:51PM EST [facility] Radiology Study observation (narrative) [facility] DBT Breast - bilateral scree ningOrdered By: [facility] Provider on 10-15-2023 [facility] MANOJ SCREENING W TOMOon 08-25 [facility] Basophil percentageon 2021 Bilirubin [Mass/Vol] 0.80 mg/dL 0.20-1.00 [facility] Work Phone: Comment on above: For patients on eltr ombopag therapy, use of Dimension Bevier TBIL is not recommended. Cholesterol [Mass/Vol] 187 mg/dL <200 [facility] Work Phone: Comment on above: <200 mg/dL Desirable 200-240 mg/dL Borderline >240 mg/dL High Risk Protein [Mass/Vol] 7.3 g/dL 6.4-8.2 [facility] Work Phone: Triglyceride [Mass/Vol] 109 mg/dL <199 [facility] Work Phone: Comment on above: The drugs N-Acetylcy steine and Metamizole may falsely depress this assay.Serum Triglycerides Reference Interval Normal <150 mg/dL Borderline high 150 - 199 mg/dL High 200 - 499 mg/dL Very High > or = 500 mg/dL Direct bilirubinon 2 Bilirubin.direct [Mass/Vol] 0.17 mg/dL 0.00-0.30 [facility] Work Phone: Laboratory - Chemistry and C hemistry - challengeon 12-05-2021 ALP [Catalytic activity/Vol] 73 U/L 45-117 [facility] Work Phone: ALT [Catalytic activity/Vol] 26 U/L 13-56 [facility] Work Phone: Globulin (S) [Mass/Vol] 3.5 g/dL 2.2-4.2 [facility] Work Phone: Serum or plasma albumin deb urement (mass/volume)on 12-05-2021 Albumin [Mass/Vol] 3.8 g/dL 3.2-5.0 [facility] Work Phone: Serum or plasma cholesterol in HDL measurement (mass/volume)on 12-05-2021 Cholesterol in HDL [Mass/Vol] 73 mg/dL >40 [facility] Work Phone: Comment on above: The drugs N-Acetylcy steine and Metamizole may falsely depress this assay. Reference Range HDL <40 mg/dL Low HDL Cholesterol HDL >or= 60 mg/dL High HDL Cholesterol Serum or plasma cholesterol in VLDL measurement (mass/volume)on 12-05-2021 Cholesterol in VLDL [Mass/Vol] 22 mg/dL 5-40 [facility] Work Phone: Serum or plasma low density lipoprotein (LDL) cholesterol measurement (mass/volume)on 12-05-2021 Cholesterol in LDL [Mass/Vol] 92 mg/dL 0-130 [facility] Work Phone: Thin prep Papanicolaou smear with manual screeningon 12-05-2021 Thin prep Papanicolaou smear with manual screening 22 U/L 15-37 [facility] Work Phone: No Panel Informationon 11-18 POC SARS CoV-2 Antigen Positive [facility] Work Phone: Laboratory - Microbiology an d Antimicrobial susceptibilityon 11-15-2021 SARS-CoV-2 (COVID-19) RNA DARYL+probe Ql (Unsp spec) Not detected [facility] Work Phone: No Panel Informationon 11-15 POC Nasal Swab Influenza A,B Not detected [facility] Work Phone: POC Nasal Swab RSV Not detected [facility] Work Phone: MANOJ DIAG W PANCHO RTon 022 [facility] MANOJ SCREENINGon 08-07-2021 [facility] No Panel Information [facility] Vital Signs Date Time Vital Sign Value Performing Clinician Faci lity 10-18-2024 13:31-0400 Body height 162.7 cm Berkley Blas ENGINEERING GROUP LEADER.DIETARY SERVICES DIRECTOR Work Phone: [facility] 10-18-2024 13:31-0400 Body mass index (BMI) [Ratio] 17.82 kg/m2 Berkley Blas ENGINEERING GROUP LEADER.DIETARY SERVICES DIRECTOR Work Phone: [facility] 10-18-2024 13:31-0400 Body weight 47.17 kg Berkley Blas ENGINEERING GROUP LEADER.DIETARY SERVICES DIRECTOR Work Phone: [facility] 10-18-2024 13:31-0400 Diastolic blood pressure 80 mm[Hg] Berkley Blas ENGINEERING GROUP LEADER.DIETARY SERVICES DIRECTOR Work Phone: [facility] 10-18-2024 13:31-0400 Systolic blood pressure 134 mm[Hg] Berkley Blas ENGINEERING GROUP LEADER.DIETARY SERVICES DIRECTOR Work Phone: [facility] 10-15-2023 11:00-0400 Body height 163.8 cm Berkley Blas ENGINEERING GROUP LEADER.DIETARY SERVICES DIRECTOR Work Phone: [facility] 10-15-2023 11:00-0400 Body mass index (BMI) [Ratio] 19.1 kg/m2 Berkley Blas ENGINEERING GROUP LEADER.DIETARY SERVICES DIRECTOR Work Phone: [facility] 10-15-2023 11:00-0400 Body weight 51.26 kg Berkley Blas ENGINEERING GROUP LEADER.DIETARY SERVICES DIRECTOR Work Phone: [facility] 10-15-2023 11:00-0400 Diastolic blood pressure 82 mm[Hg] Berkley [place] ENGINEERING GROUP LEADER.DIETARY SERVICES DIRECTOR Work Phone: [facility] 10-15-2023 11:00-0400 Systolic blood pressure 144 mm[Hg] Berkley Blas ENGINEERING GROUP LEADER.DIETARY SERVICES DIRECTOR Work Phone: [facility] 08-15-2022 10:03-0400 Body height 162.6 cm Berkley Blas ENGINEERING GROUP LEADER.DIETARY SERVICES DIRECTOR Work Phone: [facility] 08-15-2022 10:03-0400 Body weight 51.17 kg Berkley [place] ENGINEERING GROUP LEADER.DIETARY SERVICES DIRECTOR Work Phone: [facility] 08-15-2022 10:03-0400 Diastolic blood pressure 60 mm[Hg] Berkley [place] ENGINEERING GROUP LEADER.DIETARY SERVICES DIRECTOR Work Phone: [facility] 08-15-2022 10:03-0400 Systolic blood pressure 100 mm[Hg] Berkley [place] ENGINEERING GROUP LEADER.DIETARY SERVICES DIRECTOR Work Phone: [facility] 12-06-2021 14:56-0400 Body height 165.[address] Rebeca Reyes Work Phone: [facility] Work Phone: 12-06-2021 14:56-0400 Body mass index (BMI) [Ratio] 17.6 kg/m2 Dr. Rebeca Reyes Work Phone: [facility] Work Phone: 12-06-2021 14:56-0400 Body weight 48.[address] Rebeca Reyes Work Phone: [facility] Work Phone: 12-06-2021 14:56-0400 Diastolic blood pressure 77 mm[Hg] Dr. Rebeca Reyes Work Phone: [facility] Work Phone: 12-06-2021 14:56-0400 Heart rate 74 /min Dr. Rebeca Reyes Work Phone: [facility] Work Phone: 12-06-2021 14:56-0400 Respiratory rate 16 /min Dr. Rebeca Reyes Work Phone: [facility] Work Phone: 12-06-2021 14:56-0400 SaO2% (BldA) [Mass fraction] 97 % Dr. Rebeca Reyes Work Phone: [facility] Work Phone: 12-06-2021 14:56-0400 Systolic blood pressure 121 mm[Hg] Dr. Rebeca Reyes Work Phone: [facility] Work Phone: 11-18-2021 12:24-0400 Body temperature 98.6 [degF] Dr. Rebeca Reyes Work Phone: [facility] Work Phone: 11-18-2021 12:24-0400 Diastolic blood pressure 72 mm[Hg] Dr. Rebeca Reyes Work Phone: [facility] Work Phone: 11-18-2021 12:24-0400 Heart rate 79 /min Dr. Rebeca Reyes Work Phone: [facility] Work Phone: 11-18-2021 12:24-0400 Respiratory rate 14 /min Dr. Rebeca Reyes Work Phone: [facility] Work Phone: 11-18-2021 12:24-0400 SaO2% (BldA) [Mass fraction] 98 % Dr. Rebeca Reyes Work Phone: [facility] Work Phone: 11-18-2021 12:24-0400 Systolic blood pressure 126 mm[Hg] Dr. Rebeca Reyes Work Phone: [facility] Work Phone: 11-15-2021 12:28-0400 Body temperature 99.5 [degF] Dr. Rebeca Reyes Work Phone: [facility] Work Phone: 11-15-2021 12:28-0400 Diastolic blood pressure 70 mm[Hg] Dr. Rebeca Reyes Work Phone: [facility] Work Phone: 11-15-2021 12:28-0400 Heart rate 81 /min Dr. Rebeca Reyes Work Phone: [facility] Work Phone: 11-15-2021 12:28-0400 Respiratory rate 15 /min Dr. Rebeca Reyes Work Phone: [facility] Work Phone: 11-15-2021 12:28-0400 SaO2% (BldA) [Mass fraction] 98 % Dr. Rebeca Reyes Work Phone: [facility] Work Phone: 11-15-2021 12:28-0400 Systolic blood pressure 130 mm[Hg] Dr. Rebeca Reyes Work Phone: [facility] Work Phone: 08-05-2021 07:37-0400 Body height 163.8 cm Berkley [place] ENGINEERING GROUP LEADER.DIETARY SERVICES DIRECTOR Work Phone: [facility] 08-05-2021 07:37-0400 Body weight 49.62 kg Berkley [place] ENGINEERING GROUP LEADER.DIETARY SERVICES DIRECTOR Work Phone: [facility] 08-05-2021 07:37-0400 Diastolic blood pressure 60 mm[Hg] Berkley [place] ENGINEERING GROUP LEADER.DIETARY SERVICES DIRECTOR Work Phone: [facility] 08-05-2021 07:37-0400 Systolic blood pressure 120 mm[Hg] Berkley Blas ENGINEERING GROUP LEADER.DIETARY SERVICES DIRECTOR Work Phone: [facility] Encounters Encounter Date Encounter Type Care Provider Facility Start: 10-18-2024 End: 10-18-2024 Patient encounter procedure Berkley Blas ENGINEERING GROUP LEADER.DIETARY SERVICES DIRECTOR Work Phone: OB/Gynecology Comment on above: Encounter for gyneco logical examination (general) (routine) without abnormal findings (Primary Dx); Encounter for screening mammogram for breast cancer Start: 10-18-2024 End: 10-18-2024 ambulatory [facility] Facility:[facility] Start: 10-18-2024 Encounter for gynecological examination (general) (routine) without abnormal findings [facility] Start: 10-18-2024 End: 10-18-2024 Patient encounter status Berkley [place] ENGINEERING GROUP LEADER.DIETARY SERVICES DIRECTOR Work Phone: [facility] Start: 10-18-2024 End: 10-18-2024 Subsequent hospital visit by physician Screen Mammo [facility] Mammogram Comment on above: Encounter for gyneco logical examination (general) (routine) without abnormal findings [Z01.419] Start: 09-05-2024 End: 09-05-[address] Marly Cox MD Work Phone: [facility] Work Phone: Start: 09-05-2024 End: 09-05-2024 Discharged Recurring Bing WILCOX -Physical Therapy Work Phone: Start: 06-24-2024 Non-patient / Non-visit Dr. Daniel hernandez MD -[facility] Start: 06-24-2024 End: 06-24-[address] Marly Cox MD Work Phone: [facility] Work Phone: Start: 06-24-2024 End: 06-24-2024 Patient encounter procedure Bing Lora PA -Cardiovascular Services Work Phone: Start: 06-24-2024 End: 06-24-2024 ambulatory Bing Lora Facility:[facility] Start: 03-03-2024 End: 03-03-2024 Emergency department patient visit Kelvin Nikolay Facility:[facility] Start: 02-05-2024 End: 02-05-2024 ambulatory Reginald Chapoteo Facility:[facility] Start: 10-20-2023 Telephone encounter Berkley paniagua APRN.DIETARY SERVICES DIRECTOR Work Phone: OB/Gynecology Comment on above: Results Start: 10-16-2023 End: 10-16-2023 Subsequent hospital visit by physician Bone Density [facility] Work Phone: Radiology Comment on above: Osteoporosis without current pathological fracture, unspecified osteoporosis type [M81.0] Start: 10-15-2023 Documentation procedure Mammog liana Coordinator [facility] Department Start: 10-15-2023 Letter encounter Mammography Coordinator [facility] Start: 10-15-2023 End: 10-15-2023 Patient encounter procedure Berkley Odonnell APRN.DIETARY SERVICES DIRECTOR Work Phone: OB/Gynecology Comment on above: Encounter for gyneco logical examination (general) (routine) without abnormal findings (Primary Dx); Encounter for screening mammogram for breast cancer; Osteoporosis without current pathological fracture, unspecified osteoporosis type Start: 10-15-2023 End: 10-15-2023 Patient encounter status Berkley Odonnell APRN.CNP Work Phone: [facility] Start: 10-15-2023 End: 10-15-2023 Subsequent hospital visit by physician Screen Mammo [facility] Mammogram Comment on above: Encounter for screen ing mammogram for malignant neoplasm of breast [Z12.31] Start: 10-06-2023 Telephone encounter Berkley Andradelillian paniagua ENGINEERING GROUP LEADER.DIETARY SERVICES DIRECTOR Work Phone: [facility] Comment on above: Orders Start: 09-23-2023 End: 09-23-2023 Patient encounter procedure Rebeca Duke MD Work Phone: Dermatology Comment on above: Seborrheic keratosis (Primary Dx); Multiple benign nevi; Silva angioma; Skin cancer screening Start: 08-25-2022 End: 08-25-2022 Subsequent hospital visit by physician Screen Mammo [facility] Mammogram Comment on above: Dense breast tissue [R92.2] Start: 08-15-2022 End: 08-15-2022 Patient encounter procedure Berkley Andradecalf ENGINEERING GROUP LEADER.DIETARY SERVICES DIRECTOR Work Phone: OB/Gynecology Comment on above: Encounter for gyneco logical examination (general) (routine) without abnormal findings (Primary Dx); Dense breast tissue; Encounter for screening mammogram for malignant neoplasm of breast Start: 08-15-2022 End: 08-15-2022 Patient encounter status Berkley Andradecalf ENGINEERING GROUP LEADER.DIETARY SERVICES DIRECTOR Work Phone: OB/Gynecology Start: 08-11-2022 Telephone encounter Maryan taylor PA-C Work Phone: Dermatology Comment on above: Rash (/) Start: 07-29-2022 End: 07-29-2022 Patient encounter procedure Maryan Langford PA-C Work Phone: Dermatology Comment on above: Rash and nonspecific skin eruption (Primary Dx) Start: 07-21-2022 Telephone encounter Rebeca roca MD Work Phone: Dermatology Comment on above: Rash Start: 06-10-2022 End: 06-10-2022 Patient encounter procedure Rebeca Duke MD Work Phone: Dermatology Comment on above: Inflamed seborrheic keratosis (Primary Dx); Acrochordon; Seborrheic keratosis; Multiple benign nevi; Silva angioma Start: 12-06-2021 End: 12-06-[address] Rebeca Reyes Work Phone: [facility] Start: 12-05-2021 End: 12-05-[address] Rebeca Reyes Work Phone: [facility] Start: 11-18-2021 End: 11-18-[address] Rebeca Reyes Work Phone: [facility] Start: 11-15-2021 End: 11-15-[address] Rebeca Reyes Work Phone: [facility] Start: 08-23-2021 End: 08-23-2021 Subsequent hospital visit by physician Diagnostic Mammo Main Mammography Comment on above: Abnormal mammogram [ R92.8] Start: 08-08-2021 Telephone encounter Berkley paniagua APRN.CNP Work Phone: OB/Gynecology Comment on above: Orders Start: 08-07-2021 Documentation procedure Mammog liana Coordinator [facility] Start: 08-07-2021 Letter encounter Mammography Coordinator [facility] Department Start: 08-07-2021 End: 08-07-2021 Subsequent hospital visit by physician Screen Mammo [facility] Mammogram Comment on above: Encounter for screen ing mammogram for breast cancer [Z12.31] Start: 08-05-2021 End: 08-05-2021 Patient encounter procedure Berkley Odonnell APRN.DIETARY SERVICES DIRECTOR Work Phone: OB/Gynecology Comment on above: Encounter for gyneco logical examination (general) (routine) without abnormal findings (Primary Dx); Encounter for screening for human papillomavirus (HPV); Pap smear for cervical cancer screening; Encounter for screening mammogram for breast cancer Start: 08-05-2021 End: 08-05-2021 Patient encounter status Berkley Odonnell APRN.CNP Work Phone: OB/Gynecology Start: 01-30-2009 End: 08-15-2022 Patient encounter status Berkley Odonnell APRN.CNP Work Phone: [facility] Procedures Date Procedure Procedure Detail Performing Clinician Start: 10-15-2023 Screening digital br east tomosynthesis bi Berkley Quickf ENGINEERING GROUP LEADER.DIETARY SERVICES DIRECTOR Work Phone: Start: 08-25-2022 Screening digital br east tomosynthesis bi Berkley Blas ENGINEERING GROUP LEADER.DIETARY SERVICES DIRECTOR Work Phone: Start: 06-10-2022 End: 06-10-2022 CRYOTHERAPY SKIN LESION Rebeca Duke MD Work Phone: Start: 08-23-2021 MANOJ DIAG W PANCHO RT Aman e [place] ENGINEERING GROUP LEADER.DIETARY SERVICES DIRECTOR Work Phone: Start: 08-07-2021 End: 08-07-2021 Screening mammography bi 2-view breast inc cad Berkley [place] ENGINEERING GROUP LEADER.DIETARY SERVICES DIRECTOR Work Phone: Start: 05-05-2013 Mammography [facility] ENGINEERING GROUP LEADER.DIETARY SERVICES DIRECTOR Work Phone: Start: 01-30-2009 Colonoscopy [facility] ENGINEERING GROUP LEADER.[facility] Work Phone: Start: 01-30-2009 Lipid 1996 panel - S marcus or Plasma Screen Wstr Plan of Treatment Date Care Activity Detail Author Start: 10-20-2025 End: 10-20-2025 Patient encounter procedure Mammogram Comment on above: Encounter for gyneco logical examination (general) (routine) without abnormal findings [Z01.419]; Encounter for screening mammogram for breast cancer [Z12.31] Annual Start: 10-15-2025 Screening for osteoporosis Bone Density Screening [facility] Start: 12-26-2024 Influenza vaccination Influenz a Vaccine (Season Ended) [facility] Start: 10-17-2024 End: 10-17-2024 Patient encounter procedure Mammogram Comment on above: Encounter for screen ing mammogram for breast cancer [Z12.31] Start: 10-14-2024 Screening for malign ant neoplasm of breast Mammogram Screening [facility] Start: 10-03-2024 Covid-19 Vaccine ( season) Covid-19 Vaccine ( season) [facility] Start: 04-27-2024 Advance Directive Discussion Advance Directive Discussion [facility] Start: 12-27-2023 Influenza vaccination Influenz a Vaccine (Season Ended) [facility] Start: 10-16-2023 End: 10-16-2023 Patient encounter procedure 10/16/2023 10:05 AM EDT Appointment Radiology [address] [place] [id number] Osteoporosis without current pathological fracture, unspecified osteoporosis type [M81.0] Radiology Comment on above: Osteoporosis without current pathological fracture, unspecified osteoporosis type [M81.0] Start: 10-15-2023 End: 10-15-2023 Patient encounter procedure 10/15/2023 11:00 AM EDT Office Visit OB/Gynecology [address] [place] [id number] Berkley Odonnell APRN.DIETARY SERVICES DIRECTOR [address] [place] [id number] annual OB/Gynecology Comment on above: annual Start: 08-26-2023 Mammography Mammogram Screening [facility] Start: 08-26-2023 Screening for malign ant neoplasm of breast Mammogram Screening [facility] Start: 07-19-2023 Covid-19 Vaccine ( season) Covid-19 Vaccine () [facility] Start: 04-27-2023 Advance Directive Discussion Advance Directive Discussion [facility] Start: 04-27-2023 Behavioral Health Screening Behavioral Health Screening [facility] Start: 12-26-2022 Covid-19 Vaccine ( season) Covid-19 Vaccine () [facility] Start: 12-26-2022 Influenza vaccination [facility] Start: 08-07-2022 Mammography MAMMOGRAM [facility] Start: 04-27-2022 ADVANCE DIRECTIVE DISCUSSION ADVANCE DIRECTIVE DISCUSSION [facility] Start: 04-27-2022 DEPRESSION ASSESSMENT DEPRESSION ASS ESSMENT [facility] Start: 12-26-2021 Influenza vaccination [facility] Start: 12-11-2021 Urine microalbumin profile DTaP,Tdap,Td Vaccine (2 - Td or Tdap) [facility] Start: 08-18-2021 COVID-19 VACCINE (3 - Booster for Moderna series) COVID-19 VACCINE (3 - Booster for Moderna series) [facility] Start: 04-27-2021 ADVANCE DIRECTIVE DISCUSSION ADVANCE DIRECTIVE DISCUSSION [facility] Start: 2019 BONE DENSITY BONE DENSITY [facility] Start: 2019 Bone Density Screening Bone Density Screening [facility] Start: 2019 Pneumococcal Vaccine : 65+ (1 of 1 - PCV) Pneumococcal Vaccine: 65+ (1 of 1 - PCV) [facility] Start: 2019 PNEUMOVAX AGE 65 AND OVER WITH 5YR LOOKBACK (#1) PNEUMOVAX AGE 65 AND OVER WITH 5YR LOOKBACK (#1) [facility] Start: 2019 Screening for osteoporosis Bone Density Screening [facility] Start: 05-05-2014 Mammography MAMMOGRAM [facility] Start: 2014 RSV Vaccine (1 - 1-d ose 60+ series) RSV Vaccine (1 - 1-dose 60+ series) [facility] Start: 2014 RSV Vaccine (1 - Ris k 60-74 years 1-dose series) RSV Vaccine (1 - Risk 60-74 years 1-dose series) [facility] Start: 01-30-2014 Lipid 1996 panel - Serum or Plasma Lipid Screening [facility] Start: 01-30-2014 Lipid panel Lipid Screening [facility] Start: 01-30-2014 LIPID SCREEN LIPID SCREEN [facility] Start: 01-31-2012 DIABETES SCREEN DIABETES SCREEN [facility] Start: 01-31-2012 Diabetes Screening Diabetes Screenin g [facility] Start: 01-30-2010 Colonoscopy COLONOSCOPY [facility] Start: 01-30-2010 COLORECTAL CANCER SCREENING COLORECTAL CANCER SCREENING [facility] Start: 01-30-2010 Screening for malign ant neoplasm of colon [facility] Start: 2004 Pneumococcal Vaccine : 50+ (1 of 1 - PCV) Pneumococcal Vaccine: 50+ (1 of 1 - PCV) [facility] Start: 2004 SHINGRIX VACCINE (1 of 2) SHINGRIX VACCINE (1 of 2) [facility] Start: 1999 COLOGUARD (FIT-DNA) COLOGUARD (FIT-D NA) [facility] Start: [address] COLONOGRAPHY [facility] Start: 1999 FECAL OCCULT BLOOD FECAL OCCULT BLOO D [facility] Start: 1999 Screening for malign ant neoplasm of colon [facility] Start: 1999 SIGMOIDOSCOPY SIGMOIDOSCOPY [facility] Start: 1973 Urine microalbumin profile [facility] Start: 1972 ANNUAL PCP TEAM CORE DIPPER VENICE DISEASE VISIT ANNUAL PCP TEAM CHRONIC DISEASE VISIT [facility] Start: 1972 Anxiety Screening Anxiety Screening [facility] Start: 1972 Depression Screening Depression Scre ening [facility] Start: 1972 HEPATITIS C SCREENING HEPATITIS C SC [facility] Start: 1972 Hepatitis C screening Hepatitis C Sc [facility] Start: 1972 SPIROMETRY SPIROMETRY [facility] Start: 1966 Adult depression screening assessment DEPRESSION SCREENING [facility] Start: 1960 Pneumococcal Vaccine : 65+ (1 - PCV) Pneumococcal Vaccine: 65+ (1 - PCV) [facility] Start: 1960 PNEUMOCOCCAL: 65+ (1 - PCV) PNEUMOCOCCAL: 65+ (1 - PCV) [facility] End: 11-13-2024 BD DXA TRABECULAR BONE SCORE (TBS) BD DXA TRABECULAR BONE SCORE (TBS) Radiology Routine Osteoporosis without current pathological fracture, unspecified osteoporosis type 1 Occurrences starting 10/15/2023 until 11/13/2024 [facility] Comment on above: 1 Occurrences starti ng 10/15/2023 until 11/13/2024 BD DXA TRABECULAR CONCETTA NE SCORE (TBS) BD DXA TRABECULAR BONE SCORE (TBS) Radiology Routine Osteoporosis without current pathological fracture, unspecified osteoporosis type 10/16/2023 11:15 AM EDT [facility] End: 11-05-2024 DBT Breast - bilateral screening MANOJ SCREENING W PANCHO Radiology Routine Encounter for screening mammogram for malignant neoplasm of breast 1 Occurrences starting 10/07/2023 until 11/05/2024 [facility] Work Phone: Comment on above: 1 Occurrences starti ng 10/07/2023 until 11/05/2024 End: 11-13-2024 DBT Breast - bilateral screening MANOJ SCREENING W PANCHO Radiology Routine Encounter for gynecological examination (general) (routine) without abnormal findings Encounter for screening mammogram for breast cancer 1 Occurrences starting 10/15/2023 until 11/13/2024 [facility] Work Phone: Comment on above: 1 Occurrences starti ng 10/15/2023 until 11/13/2024 End: 11-17-2025 DBT Breast - bilateral screening MANOJ SCREENING W PANCHO Radiology Routine Encounter for gynecological examination (general) (routine) without abnormal findings Encounter for screening mammogram for breast cancer 1 Occurrences starting 10/18/2024 until 11/17/2025 [facility] Work Phone: Comment on above: 1 Occurrences starti ng 10/18/2024 until 11/17/2025 DBT Breast - bilater al screening MANOJ SCREENING W PANCHO Radiology Routine Encounter for gynecological examination (general) (routine) without abnormal findings Encounter for screening mammogram for breast cancer 10/18/2024 1:20 PM EDT [facility] Work Phone: End: 09-07-2022 Diagnostic mammography computer-aided detcj uni MANOJ DIAGNOSTIC RT Radiology Routine Abnormal mammogram 1 Occurrences starting 08/08/2021 until 09/07/2022 [facility] Work Phone: Comment on above: 1 Occurrences starti ng 08/08/2021 until 09/07/2022 End: 11-13-2024 DXA Skeletal system.axial Views for bone density DXA-AXIAL SKELETON Radiology Routine Osteoporosis without current pathological fracture, unspecified osteoporosis type 1 Occurrences starting 10/15/2023 until 11/13/2024 [facility] Comment on above: 1 Occurrences starti ng 10/15/2023 until 11/13/2024 DXA Skeletal system.axial Views for bone density DXA-AXIAL SKELETON Radiology Routine Osteoporosis without current pathological fracture, unspecified osteoporosis type 10/16/2023 11:15 AM EDT [facility] Work Phone: End: 09-14-2023 MANOJ SCREENING W PANCHO MANOJ SCREENING W PANCHO Radiology Routine Dense breast tissue Encounter for screening mammogram for malignant neoplasm of breast 1 Occurrences starting 08/15/2022 until 09/14/2023 [facility] Work Phone: Comment on above: 1 Occurrences starti ng 08/15/2022 until 09/14/2023 PAP FLUID CERVICAL SCREENING PAP FLUID CERVICAL SCREENING Lab Routine Encounter for screening for human papillomavirus (HPV) Pap smear for cervical cancer screening Ordered: 08/05/2021 [facility] Work Phone: Comment on above: Ordered: 08/05/2021 End: 09-04-2022 Screening mammography bi 2-view breast inc cad MANOJ SCREENING Radiology Routine Encounter for screening mammogram for breast cancer 1 Occurrences starting 08/05/2021 until 09/04/2022 [facility] Work Phone: Comment on above: 1 Occurrences starti ng 08/05/2021 until 09/04/2022 End: 09-07-2022 Us breast uni real time with image limited US BREAST LTD RT Radiology Routine Abnormal mammogram 1 Occurrences starting 08/08/2021 until 09/07/2022 [facility] Work Phone: Comment on above: 1 Occurrences starti ng 08/08/2021 until 09/07/2022 End: 08-23-2021 Us breast uni real time with image limited US BREAST LTD RT Radiology Routine Abnormal mammogram 1 Occurrences starting 08/23/2021 until 08/23/2021 [facility] Work Phone: Comment on above: 1 Occurrences starti ng 08/23/2021 until 08/23/2021 [facility] Immunizations Immunization Date Immunization Notes Care Provider Fa aver[facility] 04-04-2024 COVID-19 vaccine, ag e 12+ yr (MODERNA) Berkley [place] ENGINEERING GROUP LEADER.DIETARY SERVICES DIRECTOR Work Phone: [facility] 03-28-2022 zoster vaccine recombinant Berkley [place] ENGINEERING GROUP LEADER.DIETARY SERVICES DIRECTOR Work Phone: [facility] 09-01-2021 zoster vaccine recombinant Berkley [place] ENGINEERING GROUP LEADER.DIETARY SERVICES DIRECTOR Work Phone: [facility] 04-08-2019 influenza, injectabl e, quadrivalent, preservative free Dr. Marly Cox MD Work Phone: [facility] 04-08-2019 influenza, seasonal, injectable Dr. Rebeca Reyes Work Phone: [facility] Work Phone: 04-08-2019 influenza, seasonal, injectable, preservative free Berkley [place] ENGINEERING GROUP LEADER.DIETARY SERVICES DIRECTOR Work Phone: [facility] 04-08-2019 influenza virus vacc ine, unspecified formulation Screen Wstr [facility] 04-27-2018 influenza, seasonal, injectable Berkley Blas ENGINEERING GROUP LEADER.DIETARY SERVICES DIRECTOR Work Phone: [facility] 10-26-2017 rabies vaccine, for intramuscular injection Dr. Rebeca Reyes Work Phone: [facility] 10-26-2017 rabies vaccine, unspecified formulation Dr. Rebeca Reyes Work Phone: [facility] 10-23-2017 rabies vaccine, for intramuscular injection Dr. Rebeca Reyes Work Phone: [facility] 12-12-2011 influenza, seasonal, injectable Berkley [place] ENGINEERING GROUP LEADER.DIETARY SERVICES DIRECTOR Work Phone: [facility] 12-12-2011 tetanus toxoid, redu nargis diphtheria toxoid, and acellular pertussis vaccine, adsorbed Berkley Blas ENGINEERING GROUP LEADER.DIETARY SERVICES DIRECTOR Work Phone: [facility] 12-10-2011 rabies vaccine, for intramuscular injection Berkley Blas ENGINEERING GROUP LEADER.DIETARY SERVICES DIRECTOR Work Phone: [facility] 12-03-2011 rabies vaccine, for intramuscular injection Berkley Blas ENGINEERING GROUP LEADER.DIETARY SERVICES DIRECTOR Work Phone: [facility] Payers Date Payer Category Payer Self-pay [id number] 2021 Blue Cross Blue Shield [facility]UE [facility] [id number] 2021 Unknown [employer]ON ARREAGA [employer] PPO [id number] 2021-Present [phone] [address] [place] [address] PPO [id number] 2021 Unknown [employer]ON VAZQUEZE SS PPO [id number] 2021-Present [phone] [address] [place] [address] PPO [id number] 2021 Unknown [id number] 2010 Private Health Insurance SELF PAY INSURAN [id number] Unknown [id number] Unknown [id number] Unknown [id number] Unknown [id number] Unknown [id number] Social History Date Type Detail Facility Start: 08-15-2022 End: 03-03-2024 Tobacco smoking status NYIS Never smoked tobacco [facility] Work Phone: Start: 08-05-2021 End: 10-18-2024 Alcohol intake Current drinker of alcohol (finding) [facility] Start: 08-05-2021 End: 09-23-2023 Alcohol intake [facility] Start: 03-14-2009 History SDOH Alcohol Comment One Glass of Wine with Dinner [facility] Start: 1955 Sex Assigned At Not on file [facility] Start: 07-26-2021 End: 08-23-2021 Exposure to SARS-CoV-2 (event) Not sure [facility] Work Phone: Start: 12-06-2021 Tobacco smoking status NHIS Unknown if ever smoked [facility] Work Phone: Start: 04-07-2019 Occasional [facility] Start: 03-11-2020 None [facility] Start: 03-11-2020 Spouse/ Signif icant Other [facility] Start: 04-08-2019 Non-smoker [facility] Start: 1955 Sex Assigned At Female W [facility] Start: 08-15-2022 Tobacco use and exposure Smokeless tobacco non-user [facility] Work Phone: Start: 08-15-2022 End: 09-23-2023 Tobacco use panel [facility] Work Phone: National Score (1-100), lower number is lower risk 50 [facility] Start: 07-07-2024 Sex Female (finding) [facility] Functional Status Date Assessment Result Facility 01-15-2014 Are you deaf, or do you have serious difficulty hearing No 01/15/2014 1:17 PM Hayley Sommer RN No [facility] Work Phone: 01-15-2014 Are you blind, or do you have serious difficulty seeing, even when wearing glasses No 01/15/2014 1:17 PM Hayley Sommer RN No [facility] 01-15-2014 Do you have serious difficulty walking or climbing stairs No 01/15/2014 1:17 PM Hayley Sommer RN No [facility] 01-15-2014 Do you have difficul ty dressing or bathing No 01/15/2014 1:17 PM Hayley Sommer RN No [facility] 01-15-2014 Because of a physica l, mental, or emotional condition, do you have difficulty doing errands alone such as visiting a physician's office or shopping No 01/15/2014 1:17 PM Hayley Sommer RN No [facility] Mental Status Date Assessment Result Facility 01-15-2014 Because of a physica l, mental, or emotional condition, do you have serious difficulty concentrating, remembering, or making decisions No 01/15/2014 1:17 PM EDT Hayley Frankel RN No [facility] Clinical Notes 05-26-2008 to 10-18-2024 Berkley Odonnell APRN.CNP - 10/18/2024 1:21 PM EDTSMarcia escamilla RT(Kimani) - 10/18/2024 1:10 PM EDT Note Date & Type Note Facility 10-18-2024 Note HNO ID: [id number] Author: BERKLEY ODONNELL APRN.DIETARY SERVICES DIRECTOR Service: ? Author Type: Nurse Practitioner Type: Progress Notes Filed: 10/18/2024 14:02 Note Text: Patient declined maintenance shop managerBeth Kerr is a 69 year old who presents for an annual gynecologic exam without complaints. Postmenopausal: Yes since 2007 HRT use: No. 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 LMP: 08/26/2007, Postmenopausal Age at Menarche: Age at First : Age at Menopause: Cellulose Insulation Helper History Comments: Sexual Activity: Yes; Male Contraception: Not used PAST MEDICAL HISTORY Diagnosis Date Asthma 01/09/2009 Disorder of bone and cartilage, unspecified 05/26/2008 Osteopenia Easy bruising 01/09/2009 Hypermobility syndrome 05/26/2008 Osteoporosis 01/09/2009 Unspecified asthma(493.90) Childhood PAST SURGICAL HISTORY Procedure Laterality Date NONE FAMILY HISTORY Problem Relation Age of Onset Osteoporosis Mother Stroke Mother Heart Mother other (IBS) Mother Heart Father AR at age 50, Headaches other (Gall Bladder) Sister None Sister other (Unknown) Brother AR 55 yrs of age stent placed None Brother SOCIAL HISTORY Social History Tobacco Use Smoking status: Never Smokeless tobacco: Never Vaping Use Vaping status: Never Used Substance Use Topics Alcohol use: Yes Alcohol/week: 7.0 standard drinks of alcohol Types: 7 Glasses of Wine (5oz) per week Comment: One Glass of Wine with Dinner Drug use: No REVIEW OF SYSTEMS Abdomen: No abdominal pain, nausea, vomiting, diarrhea, or constipation. No bloating, early satiety, indigestion, or increased flatulence. Bladder: No dysuria, gross hematuria, urinary frequency, urinary urgency, or incontinence Breast: No breast lumps, nipple d/c, overlying skin changes, redness or skin retraction Allergies and current medication updated:Yes SENSITIVE EXAM: The sensitive examination was discussed with the Patient or Patient's Authorized Marble Finisher. As applicable, any other physician, advance practice provider, medical student, or other health professional student that will be observing or involved in the sensitive examination for educational or training purposes was discussed with the Patient or Authorized Marble Finisher. The Patient or Authorized Marble Finisher has agreed to proceed with the sensitive examination. (Sensitive examination includes inspection and/or palpation of the breasts, pelvis, prostate and anorectal regions). EXAM: LMP 08/26/2007 GENERAL: pleasant, female in no apparent distress HEENT: Normocephalic, atraumatic, mucus membranes moist, and no lesions DERMATOLOGY: Normal, without lesions, non-icteric, and non-hirsute BREAST: soft, non-tender, symmetric, no dominant mass, normal nipple-areolar complex, no lymphadenopathy, and no nipple discharge CHEST: Normal inspiratory effort ABDOMEN: soft, non-tender, and no masses PELVIC: external genitalia normal, normal Bartholin's glands, urethra, [place]'s glands, no vulvar lesions, no cervical lesions, good vaginal support, physiologic discharge present, normal appearing perineal body and perianal region BIMANUAL: uterus normal size, shape and consistency, no adnexal masses, and non-tender RECTOVAGINAL: deferred. NEURO: alert and oriented x3,exam grossly non-focal EXTREMITIES: normal ASSESSMENT/PLAN: 1) Health maintenance: Pap/HPV screening no longer needed Mammogram ordered Mammogram up to date Nutrition, exercise and routine health maintenance exams reviewed. Calcium/Vitamin D supplementation information provided. Colon cancer screening: up to date with screening BMD: up to date 2) Follow up one year or sooner as needed 3) Estrace cream ordered Berkley Odonnell APRN.NAPOLEON [facility] 10-18-2024 History of Present illness Narrative Patient declined maintenance shop manager. Shar is a 69 year old who presents for an annual gynecologic exam without complaints. Postmenopausal: Yes since 2007 HRT use: No. 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 LMP: 08/26/2007, Postmenopausal Age at Menarche: Age at First : Age at Menopause: Cellulose Insulation Helper History Comments: Sexual Activity: Yes; Male Contraception: Not used PAST MEDICAL HISTORY Diagnosis Date Asthma 01/09/2009 Disorder of bone and cartilage, unspecified 05/26/2008 Osteopenia Easy bruising 01/09/2009 Hypermobility syndrome 05/26/2008 Osteoporosis 01/09/2009 Unspecified asthma(493.90) Childhood PAST SURGICAL HISTORY Procedure Laterality Date NONE FAMILY HISTORY Problem Relation Age of Onset Osteoporosis Mother Stroke Mother Heart Mother other (IBS) Mother Heart Father AR at age 50, Headaches other (Gall Bladder) Sister None Sister other (Unknown) Brother AR 55 yrs of age stent placed None Brother SOCIAL HISTORY Social History Tobacco Use Smoking status: Never Smokeless tobacco: Never Vaping Use Vaping status: Never Used Substance Use Topics Alcohol use: Yes Alcohol/week: 7.0 standard drinks of alcohol Types: 7 Glasses of Wine (5oz) per week Comment: One Glass of Wine with Dinner Drug use: No REVIEW OF SYSTEMS Abdomen: No abdominal pain, nausea, vomiting, diarrhea, or constipation. No bloating, early satiety, indigestion, or increased flatulence. Bladder: No dysuria, gross hematuria, urinary frequency, urinary urgency, or incontinence Breast: No breast lumps, nipple d/c, overlying skin changes, redness or skin retraction Allergies and current medication updated:Yes SENSITIVE EXAM: The sensitive examination was discussed with the Patient or Patient's Authorized Marble Finisher. As applicable, any other physician, advance practice provider, medical student, or other health professional student that will be observing or involved in the sensitive examination for educational or training purposes was discussed with the Patient or Authorized Marble Finisher. The Patient or Authorized Marble Finisher has agreed to proceed with the sensitive examination. (Sensitive examination includes inspection and/or palpation of the breasts, pelvis, prostate and anorectal regions). EXAM: LMP 08/26/2007 GENERAL: pleasant, female in no apparent distress HEENT: Normocephalic, atraumatic, mucus membranes moist, and no lesions DERMATOLOGY: Normal, without lesions, non-icteric, and non-hirsute BREAST: soft, non-tender, symmetric, no dominant mass, normal nipple-areolar complex, no lymphadenopathy, and no nipple discharge CHEST: Normal inspiratory effort ABDOMEN: soft, non-tender, and no masses PELVIC: external genitalia normal, normal [place]'s glands, urethra, [place]'s glands, no vulvar lesions, no cervical lesions, good vaginal support, physiologic discharge present, normal appearing perineal body and perianal region BIMANUAL: uterus normal size, shape and consistency, no adnexal masses, and non-tender RECTOVAGINAL: deferred. NEURO: alert and oriented x3,exam grossly non-focal EXTREMITIES: normal ASSESSMENT/PLAN: 1) Health maintenance: Pap/HPV screening no longer needed Mammogram ordered Mammogram up to date Nutrition, exercise and routine health maintenance exams reviewed. Calcium/Vitamin D supplementation information provided. Colon cancer screening: up to date with screening BMD: up to date 2) Follow up one year or sooner as needed 3) Estrace cream ordered Berkley Odonnell APRN.NAPOLEON documented in this encounter [facility] 10-18-2024 History of Present illness Narrative Radiology Service Progress Note PATIENT NAME: Shar Weston DATE OF SERVICE: October 18, 2024 TIME: 1:34 PM PATIENT IDENTITY VERIFICATION COMPLETED USING TWO (2) IDENTIFIERS: Name and Date of confirmed by patient verbally. FALL SCREENING: Has the patient had 2 falls in the last year or 1 fall with injury or currently using an Ambulatory Assistive Device (Walker, Cane, Wheelchair, Crutches, etc.)? No PATIENT GENDER DATA: Assigned female at . status: : No status: NO. PATIENT RELEVANT IMPLANT DATA REVIEWED: Not Applicable PATIENT PRESENTS WITH AN IMPLANTABLE OR ATTACHED PATHOLOGIST ASSISTANT: No RADIOLOGY DEPARTMENT: Mammography PERIPHERAL IV DATA: Not applicable SIGNED BY: RT Meche(R) October 18, 2024 1:34 PM documented in this encounter [facility] 10-18-2024 Note HNO ID: [id number] Author: MARCIA BRYANT RT(R) Service: ? Author Type: Technologist Type: Progress Notes Filed: 10/18/2024 13:34 Note Text: Radiology Service Progress Note PATIENT NAME: Shar Weston DATE OF SERVICE: October 18, 2024 TIME: 1:34 PM PATIENT IDENTITY VERIFICATION COMPLETED USING TWO (2) IDENTIFIERS: Name and Date of confirmed by patient verbally. FALL SCREENING: Has the patient had 2 falls in the last year or 1 fall with injury or currently using an Ambulatory Assistive Device (Walker, Cane, Wheelchair, Crutches, etc.)? No PATIENT GENDER DATA: Assigned female at . status: : No status: NO. PATIENT RELEVANT IMPLANT DATA REVIEWED: Not Applicable PATIENT PRESENTS WITH AN IMPLANTABLE OR ATTACHED PATHOLOGIST ASSISTANT: No RADIOLOGY DEPARTMENT: Mammography PERIPHERAL IV DATA: Not applicable SIGNED BY: RT Meche(R) October 18, 2024 1:[address] [facility] 09-05-2024 Discharge summary Note Date/Time September 05, 2024 7:00p m [facility] Physical Therapy [facility] [address] [place] [address] [address] [place] [id number] / REHABILITATION SERVICES DISCHARGE SUMMARY MR#: [id number] Acct: [id number] Name: SHAR WESTON Rep #: [id number] : 1955 69 From: Prashant Chapa Referring Dr.: JERI Huber Status: REG RCR Insurance: [employer] SELF PAY INSURANCE Discharge Summary D/C summary: It has been my pleasure to treat SHAR WESTON referred by JERI Huber, with the diagnosis of L knee pain, L knee effusion, popliteal cyst for a total of 14 visit(s). Discharge Date: 09/05/24 Please see the following information for a summary of their discharge status. Subjective Subjective: Pt. reports overall doing well. Pt. will be DC from PT at this pointin time. She reports having good tolerance to gym exercises no major issues. Pain L posterior knee: Pain Intensity (Out of 10): 0 Overall Improvement % Improvement: 80 Objective Objective/Function: ROM: Pt. has full ROM of her L knee without increase in symptoms MMT: R knee: ext 35.7#, flex 23.8# L knee: ext 53.5#, flexion 23.7# GAIT: normal without issues. Pt. is overall doing much better. She is I with herHEP for gym programs. Pt. will be DC from PT at this point in time. All goals met. Goals Goal 1:: LTG: Pt. to be I with HEP. Goal Progress: Goal Met Goal 2:: STG: Pt. to be able to walk unlimited distances without increase in L knee pain. Goal Progress: Goal Met Goal 3:: LTG: Pt. to complete SLS on L side with good knee stability and no increase in symptoms. Goal Progress: Goal Met Goal 4:: LTG: Pt. to have no edema in LLE after doing all dancing and working out. Goal Progress: Goal Met Goal 5:: LTG: Pt. to have I gym program to further LLE strengthening. Goal Progress: Goal Met Plan Plan: Pt. to be DC from PT at this point in time. D/C Information d/c sentence: If there are questions or concerns regarding this patient's physical therapy, please feel free to call me at [phone]. Thank you for the referral of thispatient. Sincerely, Prashant Bennett, DPT Balance/Gait/Functional tests Balance/Special Test Scores Lower Extremity Functional Score: 74 Improvement % Improvement: 80 <Electronically signed by Prashant Bennett DPT> 09/05/24 0940 CC: Dr. Marly Cox MD; JERI Huber ~ CLS Signed [facility] Work Phone: 1(760) 239-177605-12-2025 Discharge summary [facility] [address] [place] [address] [address] [place] [address] / REHABILITATION SERVICES DISCHARGE SUMMARY MR#: [id number] Acct: [id number] Name: SHAR WESTON Rep #: [id number] : 1955 69 From: Prashant CARBAJAL T Referring Dr.: JERI Huber Status: REG RCR Insurance: [employer] SELF PAY INSURANCE Discharge Summary D/C summary: It has been my pleasure to treat SHAR WESTON referred by JERI Huber, with the diagnosis of L knee pain, L knee effusion, popliteal cyst for a total of 14 visit(s). Discharge Date: 09/05/24 Please see the following information for a summary of their discharge status. Subjective Subjective: Pt. reports overall doing well. Pt. will be DC from PT at this pointin time. She reports having good tolerance to gym exercises no major issues. Pain L posterior knee: Pain Intensity (Out of 10): 0 Overall Improvement % Improvement: 80 Objective Objective/Function: ROM: Pt. has full ROM of her L knee without increase in symptoms MMT: R knee: ext 35.7#, flex 23.8# L knee: ext 53.5#, flexion 23.7# GAIT: normal without issues. Pt. is overall doing much better. She is I with herHEP for gym programs. Pt. will be DC from PT at this point in time. All goals met. Goals Goal 1:: LTG: Pt. to be I with HEP. Goal Progress: Goal Met Goal 2:: STG: Pt. to be able to walk unlimited distances without increase in L knee pain. Goal Progress: Goal Met Goal 3:: LTG: Pt. to complete SLS on L side with good knee stability and no increase in symptoms. Goal Progress: Goal Met Goal 4:: LTG: Pt. to have no edema in LLE after doing all dancing and working out. Goal Progress: Goal Met Goal 5:: LTG: Pt. to have I gym program to further LLE strengthening. Goal Progress: Goal Met Plan Plan: Pt. to be DC from PT at this point in time. D/C Information d/c sentence: If there are questions or concerns regarding this patient's physical therapy, please feel free to call me at [phone]. Thank you for the referral of thispatient. Sincerely, Prashant Bennett DPT Balance/Gait/Functional tests Balance/Special Test Scores Lower Extremity Functional Score: 74 Improvement % Improvement: 80 09/05/24 0940 CC: Dr. Marly Cox MD; JERI Huber ~ CLS Signed [facility]06-25-2024 Telephone encounter Note* Telephone Encounter - Nelly Guevara RN - 10/20/2023 2:55 PM EDT I called patient and informed her of result and recommendation [facility]06-25-2024 Miscellaneous Notes* Telephone Encounter - Nelly Guevara RN - 10/20/2023 2:55 PM EDT I called patient and informed her of result and recommendation * Telephone Encounter - Berkley Odonnell APRN.CNP - 10/20/2023 1:30 PM EDT Please let the patient know that her bone density shows a significant loss in the hip region. She can follow-up with her primary care to discuss further options other than the Fosamax if she wishes to do so. Berkley Odonnell APRN.CNP [facility] Telephone encounter Note * Telephone Encounter - Berkley Odonnell APRN.CNP - 10/20/2023 1:30 PM EDT Please let the patient know that her bone density shows a significant loss in the hip region. She can follow-up with her primary care to discuss further options other than the Fosamax if she wishes to do so. Berkley Odonnell APRN.CNP [facility]06-21-2024 History of Present illness Narrative* Genaro Jalloh RT(R) - 10/16/2023 10:05 AM EDT Radiology Service Progress Note PATIENT NAME: Shar Weston DATE OF SERVICE: October 16, 2023 TIME: 10:03 AM PATIENT IDENTITY VERIFICATION COMPLETED USING TWO (2) IDENTIFIERS: Name and Date of confirmedby patient verbally. FALL SCREENING: Has the patient had 2 falls in the last year or 1 fall with injury or currently using an Ambulatory Assistive Device (Walker, Cane, Wheelchair, Crutches, etc.)? No PATIENT GENDER DATA: Female. status: : No status: NO. PATIENT RELEVANT IMPLANT DATA REVIEWED: Not Applicable PATIENT PRESENTS WITH AN IMPLANTABLE OR ATTACHED PATHOLOGIST ASSISTANT: No RADIOLOGY DEPARTMENT: Bone Density PERIPHERAL IV DATA: Not applicable SIGNED BY: RT Prince(R) October 16, 2023 10:03 AM [facility] Note* Letter - Coordinator, Mammography - 10/15/2023 3:51 PM EDT October 15, 2023 PID: [id number] Shar Weston [address] [place] [address] Dear Ms. Weston, We are pleased to inform you that the results of your recent breast imaging exam on 10/15/2023 are normal. Your mammogram demonstrates that you have dense breast tissue, which could hide abnormalities. Dense breast tissue, in and of itself, is a relatively common condition. Therefore, this information is not provided to cause undue concern; rather, it is to raise your awareness and promote discussion with your health care provider regarding the presence of dense breast tissue in addition to other riskfactors. Early detection of cancer is very important. We also understand recommendations regarding breast cancer screening are controversial. Please discuss with your primary care provider which strategy is best for you and whether a mammogram is right for you. Your imaging studies and report will be kept on file at [facility] as part of your permanent medical record and are available for your continuing care. Thank you for allowing us to help in meeting your health care needs. Sincerely, Dr. Mitchell Interpreting Radiologist [facility] (Normal over 40) [facility]06-20-2024 Miscellaneous Notes* Letter - Coordinator, Mammography - 10/15/2023 3:51 PM EDT October 15, 2023 PID: [id number] Shar Weston [address] [place] [address] Dear Beth Weston, We are pleased to inform you that the results of your recent breast imaging exam on 10/15/2023 are normal. Your mammogram demonstrates that you have dense breast tissue, which could hide abnormalities. Dense breast tissue, in and of itself, is a relatively common condition. Therefore, this information is not provided to cause undue concern; rather, it is to raise your awareness and promote discussion with your health care provider regarding the presence of dense breast tissue in addition to other riskfactors. Early detection of cancer is very important. We also understand recommendations regarding breast cancer screening are controversial. Please discuss with your primary care provider which strategy is best for you and whether a mammogram is right for you. Your imaging studies and report will be kept on file at [facility] as part of your permanent medical record and are available for your continuing care. Thank you for allowing us to help in meeting your health care needs. Sincerely, Dr. Mitchell Interpreting Radiologist [facility] (Normal over 40) [facility] History of Present illness Narrative* Berkley Odonnell APRN.DIETARY SERVICES DIRECTOR - 10/15/2023 10:53 AM EDT Shar is a 68 year old who presents for an annual gynecologic exam without complaints. Postmenopausal: Yes since 2007 HRT use: No. 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 History LMP: 08/26/2007, Postmenopausal Age at Menarche: Age at First : Age at Menopause: Cellulose Insulation Helper History Comments: Sexual Activity: Yes; Male Contraception: None PAST MEDICAL HISTORY Diagnosis Date Asthma 01/09/2009 Disorder of bone and cartilage, unspecified 05/26/2008 Osteopenia Easy bruising 01/09/2009 Hypermobility syndrome 05/26/2008 Osteoporosis 01/09/2009 Unspecified asthma(493.90) Childhood PAST SURGICAL HISTORY Procedure Laterality Date NONE FAMILY HISTORY Problem Relation Age of Onset Osteoporosis Mother Stroke Mother Heart Mother other (IBS) Mother Heart Father [place] at age 50, Headaches other (Gall Bladder) Sister None Sister other (Unknown) Brother [place] 55 yrs of age stent placed None Brother SOCIAL HISTORY Social History Tobacco Use Smoking status: Never Smokeless tobacco: Never Vaping Use Vaping Use: Never used Substance Use Topics Alcohol use: Yes Alcohol/week: 7.0 standard drinks of alcohol Types: 7 Glasses of Wine (5oz) per week Comment: One Glass of Wine with Dinner Drug use: No REVIEW OF SYSTEMS Abdomen: No abdominal pain, nausea, vomiting, diarrhea, or constipation. No bloating, early satiety, indigestion, or increased flatulence. IBS issues Bladder: No dysuria, gross hematuria, urinary frequency, urinary urgency, or incontinence Breast: No breast lumps, nipple d/c, overlying skin changes, redness or skin retraction Allergies and current medication updated:Yes EXAM: BP 144/82 Ht 5' 4.5 (1.64m) Wt 113 lb (51.3kg) LMP 08/26/2007 BMI 19.10 kg/(m^2). GENERAL: pleasant, female in no apparent distress HEENT: Normocephalic, atraumatic, mucus membranes moist, and no lesions NECK: Supple, full range of motion, no adenopathy, and thyroid normal DERMATOLOGY: Normal, without lesions, non-icteric, and non-hirsute BREAST: soft, non-tender, symmetric, no dominant mass, normal nipple-areolar complex, no lymphadenopathy, and no nipple discharge CHEST: Normal inspiratory effort ABDOMEN: soft, non-tender, and no masses PELVIC: external genitalia normal, normal Bartholin's glands, urethra, [place]'s glands, no vulvar lesions, no cervical lesions, good vaginal support, physiologic discharge present, normal appearing perineal body and perianal region BIMANUAL: uterus normal size, shape and consistency, no adnexal masses, and non-tender RECTOVAGINAL: deferred. NEURO: alert and oriented x3,exam grossly non-focal EXTREMITIES: normal ASSESSMENT/PLAN: 1) Health maintenance: Pap/HPV screening no longer needed Mammogram ordered Mammogram up to date Nutrition, exercise and routine health maintenance exams reviewed. Calcium/Vitamin D supplementation information provided. Colon cancer screening: up to date with screening due 2026 BMD: ordered 2) Follow up one year or sooner as needed Berkley Odnonell APRN.CNP documented in [facility] encounter[facility]06[facility] History of Present illness Narrative* Fely Chavis Mammo Tech - 10/15/2023 10:10 AM EDT Radiology Service Progress Note PATIENT NAME: Shar Weston DATE OF SERVICE: October 15, 2023 TIME: 10:37 AM PATIENT IDENTITY VERIFICATION COMPLETED USING TWO (2) IDENTIFIERS: Name and Date of confirmedby patient verbally. FALL SCREENING: Has the patient had 2 falls in the last year or 1 fall with injury or currently using an Ambulatory Assistive Device (Walker, Cane, Wheelchair, Crutches, etc.)? No PATIENT GENDER DATA: Female. status: : No status: NO. PATIENT RELEVANT IMPLANT DATA REVIEWED: Not Applicable PATIENT PRESENTS WITH AN IMPLANTABLE OR ATTACHED PATHOLOGIST ASSISTANT: No RADIOLOGY DEPARTMENT: Mammography PERIPHERAL IV DATA: Not applicable SIGNED BY: Yusef Chin October 15, 2023 10:37 AM documented in this encounterWood [facility]06-12-2024 Telephone encounter Note * Telephone Encounter - Berkley Odonnell APRN.CNP - 10/07/2023 4:11 PM EDT Order filed. Berkley Odonnell APRN.CNP [facility]06[facility] Miscellaneous Notes* Telephone Encounter - Berkley Odonnell APRN.CNP - 10/07/2023 4:11 PM EDT Order filed. Berkley Odonnell APRN.CNP * Telephone Encounter - Dot Palbo - 10/06/2023 5:[address] orders for annual screening mamm w/ pancho, pt scheduled for yearly 10/14 Dot Pablo October 06, 2023 5:04 PM documented in this encounterWood [facility]06-11-[facility] Telephone encounter Note * Telephone Encounter - Dot Pablo - 10/06/2023 5:[address] orders for annual screening mamm w/ pancho, pt scheduled for yearly 10/14 Dot Pablo October 06, 2023 5:04 PM [facility] Instructions* Patient Instructions* Dana Loera LPN - 09/23/2023 2:19 PM EDT GENERAL SUN SAFETY Thank you for allowing me to examine you for signs of skin cancer today. We had an opportunity to discuss my findings and any treatments I recommended. I believe that there are several steps that a person can do to help prevent skin cancers and to detect them at an early, treatable stage: 1. I highly recommend that once a month you perform your own complete skin check looking for changing or unusual spots. Use a wall-mounted mirror and a hand mirror to assist in seeing body areas thatare difficult to see otherwise. If you have a family member that can assist, this is often helpful.Additional information can be obtained at: www.skincancer.org/pmbx-jfizvw-oetpescyret/early-detection 2. In many cases, skin cancer can be prevented. The best way to protect yourself is to avoid too much sun and sunburns. Health care providers believe that ultraviolet rays (UV rays) from the sun damage the skin and over time lead to skin cancer. Here are ways to protect yourself: -Don't spend long periods of time in direct sunlight. -Wear hats with brims to protect your face and ears. -Wear long-sleeved shirts and pants to protect your arms and legs. -Use broad spectrum sunscreens with a SPF (skin protection factor) of 30 or higher that protect against burning and tanning rays. Apply the lotion 30 minutes before you go outside. (Broad-spectrum sunscreens protect against UV-B and UV-A rays.) -Wear sunglasses to protect your eyes. -Use a lip balm with sunscreen. -Avoid the sun between 10am and 4pm. -Show any changing mole to your health care provider. documented in this encounterWood County Hospital05-29-2024 History of Present illness Narrative* Rebeca Duke MD - 09/23/2023 2:16 PM EDT Images from the original note were not included. Department of Dermatology Rebeca Duke MD 09/23/2023 Last visit in Dermatology: 07/29/2022 Objective/Assessment/Plan 1. Seborrheic keratosis 2. Multiple benign nevi 3. Silva angioma 4. Skin cancer screening The patient's skin was examined for evidence of cutaneous malignancy. The nature of sun-induced photo-aging and skin cancers is discussed. Sun avoidance, protective clothing, and the use of 30-SPF sunscreens is advised. Observe closely for skin damage/changes, and callif such occurs. These are benign lesions requiring only observation. The patient's left inferior eyelid appears normal today, without evidence of malignancy. Follow-up as noted below or as needed. Chief Complaint: Patient presents with: Full Body Skin Check Subjective and Objective No data to display HPI: Shar Weston is a 68 year old female who presents for skin check. Desires: Total body skin check in female excluding genitals (patient has periodic examination by PCP and declines this exam) History of skin cancer?: No Areas of particular concern?: No Past medical history is reviewed. Medication list is reviewed. Physical Exam included: Scalp, face, ears, neck, chest, back, abdomen, bilateral upper extremities, bilateral lower extremities, buttocks, hands, feet, nails and hair Intake: Dana Loera LPN Attending signature: Rebeca Duke MD This note is completed at 8:55 AM on 10/01/2023 and reflects the services provided at the time of theappointment. I agree with the Chief Complaint, ROS, and Past Histories independently gathered by the clinical sales support associate. documented in this encounterWood [facility] Hospital04-17-2024 Miscellaneous Notes* Telephone Encounter - Sariah Peña - 08/12/2023 9:47 AM EDT Closed, historical. * Telephone Encounter - Srikanth Navarro - 08/11/2022 3:53 PM EDT As this was sent to [facility], I called her to get this scheduled. Pt stated that Dr. Duke said his nurse team would somehow find time for them to see him as the problem has gotten worse * Telephone Encounter - Sariah Peña - 08/11/2022 3:13 PM EDT Patient was seen about 2 weeks ago for a rash. The initial area has resolved however, there is a new area adjacent to it. Patient was told to call the office if this persisted. She is calling to speak to clinical staff orget an as soon as possible appointment. She is having phone issues at the moment. She would like us to call her spouse at [phone] and gives permission to speak to him as needed. documented in this encounterWood County Hospital05-01-2023 History of Present illness Narrative* Jasmyne Combs Mammo Tech - 08/25/2022 1:10 PM EDT Radiology Service Progress Note PATIENT NAME: Shar Weston DATE OF SERVICE: August 25, 2022 TIME: 1:24 PM PATIENT IDENTITY VERIFICATION COMPLETED USING TWO (2) IDENTIFIERS: Name and Date of confirmedby patient verbally. FALL SCREENING: Has the patient had 2 falls in the last year or 1 fall with injury or currently using an Ambulatory Assistive Device (Walker, Cane, Wheelchair, Crutches, etc.)? No PATIENT GENDER DATA: Female. status: : No status: NO. PATIENT RELEVANT IMPLANT DATA REVIEWED: Not Applicable RADIOLOGY DEPARTMENT: Mammography PERIPHERAL IV DATA: Not applicable SIGNED BY: Louis Jameso Lien August 25, 2022 1:24 PM documented in this encounterWood County Hospital04-21-2023 History of Present illness Narrative* Berkley Odonnell APRN.CNP - 08/15/2022 10:00 AM EDT Shar is a 67 year old who presents for an annual gynecologic exam without complaints. Postmenopausal: Yes since 2007 HRT use: No. 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 History LMP: 08/26/2007, Postmenopausal Age at Menarche: Age at First : Age at Menopause: Cellulose Insulation Helper History Comments: Sexual Activity: Yes; Male Contraception: None PAST MEDICAL HISTORY Diagnosis Date Asthma 01/09/2009 Disorder of bone and cartilage, unspecified 05/26/2008 Osteopenia Easy bruising 01/09/2009 Hypermobility syndrome 05/26/2008 Osteoporosis 01/09/2009 Unspecified asthma(493.90) Childhood PAST SURGICAL HISTORY Procedure Laterality Date NONE FAMILY HISTORY Problem Relation Age of Onset Osteoporosis Mother Stroke Mother Heart Mother other (IBS) Mother Heart Father [place] at age 50, Headaches other (Gall Bladder) Sister other (Unknown) Brother AR 55 yrs of age stent placed None Brother None Sister SOCIAL HISTORY Social History Tobacco Use Smoking status: Never Smokeless tobacco: Never Vaping Use Vaping Use: Never used Substance Use Topics Alcohol use: Yes Alcohol/week: 17.5 standard drinks Types: 7 Glasses of Wine (5oz) per week Comment: One Glass of Wine with Dinner Drug use: No REVIEW OF SYSTEMS Abdomen: No abdominal pain, nausea, vomiting, diarrhea, or constipation. No bloating, early satiety, indigestion, or increased flatulence. IBS issues Bladder: No dysuria, gross hematuria, urinary frequency, urinary urgency, or incontinence Breast: No breast lumps, nipple d/c, overlying skin changes, redness or skin retraction Allergies and current medication updated:Yes EXAM: Ht 5' 4 (1.63m) Wt 112 lb 12.8 oz (51.2kg) LMP 08/26/2007 BMI 19.35 kg/(m^2). GENERAL: pleasant, female in no apparent distress HEENT: Normocephalic, atraumatic, and no lesions NECK: Supple, full range of motion, no adenopathy, and thyroid normal DERMATOLOGY: Normal, without lesions, non-icteric, and non-hirsute BREAST: soft, non-tender, symmetric, no dominant mass, normal nipple-areolar complex, no lymphadenopathy, and no nipple discharge CHEST: Normal inspiratory effort ABDOMEN: soft, non-tender, and no masses PELVIC: external genitalia normal, normal Bartholin's glands, urethra, [place]'s glands, no vulvar lesions, no cervical lesions, good vaginal support, physiologic discharge present, normal appearing perineal body and perianal region, atrophic changes BIMANUAL: uterus normal size, shape and consistency, no adnexal masses, and non-tender RECTOVAGINAL: deferred. NEURO: alert and oriented x3,exam grossly non-focal EXTREMITIES: normal ASSESSMENT/PLAN: 1) Health maintenance: Pap/HPV up to date. Mammogram ordered Nutrition, exercise and routine health maintenance exams reviewed. Calcium/Vitamin D supplementation information provided. Colon cancer screening: followed by PCP BMD: followed by PCP 2) Follow up one year or sooner as needed Berkley Odonnell APRN.NAPOLEON documented in this encounterWood [facility] Hospital04-04-2023 History of Present illness Narrative* Maryan Langford PA-C - 07/29/2022 1:40 PM EDT EST PATIENT Chief Complaint: Patient presents with: Rash HPI: Shar Weston is a 67 year old female who presents today for: Patient presents with: Rash #1: Rash Location: left hip and abdomen Duration: ~ 11 days Symptoms: Area is red, slightly scaly, tingly, spreading. Initially was raised but now is flat. Denies itching. 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 Medication List is reviewed. ROS: Skin as above. Physical Exam: King skin type: II The patient is a pleasant female in no apparent distress. Alert and oriented x 3. A skin exam performed of the left hip and lower abdomen is significant for: - erythematous patch to left hip with mild desquamation; not warm, indurated or tender to palpation Assessment and Plan: Rash and nonspecific skin eruption Left Hip Related Medications mometasone (ELOCON) 0.1 % cream Apply to affected area twice daily for up to 2 weeks as needed for rash. Consulted with Dr. Duke who also examined the patient Discussed a high potency topical steroid vs prolonged systemic steroid vs biopsy Favor allergic contact dermatitis, unlikely arthropod bite Agreeable to topical mometasone BID x 7 days Complete full course of prednisone If symptoms worsen or fail to improve - contact office Biopsy in reserve R/b/a for the medication(s) including possible side effects discussed and reviewed with patient. Follow up as noted in plan or as needed. Intake completed by Radha Smith LPN I have reviewed and agree with the Chief Complaint, patient-reported HPI, ROS, and Past Histories independently gathered by the clinical sales support associate and the remaining scribed note accurately describes my personal service to the patient. Maryan Langford MS, PA-C documented in this encounterWood County Hospital03-27-2023 Miscellaneous Notes* Telephone Encounter - Deb Roldan RN - 07/21/2022 11:46 AM EDT Please contact patient and assist with scheduling an appointment with any [facility] provider. May use MD zavala. Thank you. * Telephone Encounter - Sariah Peña - 07/21/2022 10:30 AM EDT A similar lesion previously appeared on left eyelid, a few times and was diagnosed as lichenoid keratosis. The current area of concern is the hip and abdomen. A spot with similar appearance to the above appeared on the patient's hip and abdomen Thursday about he size of a pea.The size has spread to about 3 or 4 square inches, but the areas have not scaled over yet. Patient is in a conference today for work but taking lunch to see her PCP. Please call spouse for follow up. documented in this encounterWood County Hospital02-14-2023 Instructions* Patient Instructions* Diana Pugh MA - 06/10/2022 2:18 PM EST GENERAL SUN SAFETY Thank you for allowing me to examine you for signs of skin cancer today. We had an opportunity to discuss my findings and any treatments I recommended. I believe that there are several steps that a person can do to help prevent skin cancers and to detect them at an early, treatable stage: 1. I highly recommend that once a month you perform your own complete skin check looking for changing or unusual spots. Use a wall-mounted mirror and a hand mirror to assist in seeing body areas thatare difficult to see otherwise. If you have a family member that can assist, this is often helpful.Additional information can be obtained at: www.skincancer.org/ygot-czqfjo-hvfseqbsffw/early-detection 2. In many cases, skin cancer can be prevented. The best way to protect yourself is to avoid too much sun and sunburns. Health care providers believe that ultraviolet rays (UV rays) from the sun damage the skin and over time lead to skin cancer. Here are ways to protect yourself: -Don't spend long periods of time in direct sunlight. -Wear hats with brims to protect your face and ears. -Wear long-sleeved shirts and pants to protect your arms and legs. -Use broad spectrum sunscreens with a SPF (skin protection factor) of 30 or higher that protect against burning and tanning rays. Apply the lotion 30 minutes before you go outside. (Broad-spectrum sunscreens protect against UV-B and UV-A rays.) -Wear sunglasses to protect your eyes. -Use a lip balm with sunscreen. -Avoid the sun between 10am and 4pm. -Show any changing mole to your health care provider SKIN CARE AFTER CRYOSURGERY The skin's response to cryosurgery (freezing) can be mild to severe, depending on the depth of the freeze and location of the area treated. You may have minimal redness and swelling with little discomfort or significant discoloration and blistering with considerable discomfort. A burning sensation in the skin may last from several minutes to several hours after the procedure. Follow these instructions when caring for an area treated by cryosurgery: 1. Please clean the area every day with gentle soap and water. It is not necessary to cover the site with a bandage. However, it may be used for protection and it must be changed daily. Do not leave a soiled or wet bandage on the wound. 2. If you are experiencing discomfort you may use a cool compress, elevate the area or take over the counter pain relievers. 3. Apply Vaseline or Aquaphor daily to the site. This can help with itching, irritation, and discomfort. -The lesion may take 2-4 weeks to fully resolve. Depending on the severity of treatment and lesion treated, it may take longer. -DO NOT USE NEOSPORIN OR BACITRACIN as there is a fairly high incidence of allergic response to these products. -You may experience some mild discomfort, redness, swelling, and/or a clear discharge from the wound after your procedure. Severe pain, worsening swelling, and foul-smelling discharge from the site are NOT to be expected. If you have concerns about how your wounds are healing, please send your provider a [employer] message or call . documented in this encounterWood County Hospital02-14-2023 History of Present illness Narrative* Rebeca Duke MD - 06/10/2022 1:45 PM EST Images from the original note were not included. Department of Dermatology Rebeca Duke MD 06/10/2022 Last visit in Dermatology: 06/18/2021 Objective/Assessment/Plan 1. Inflamed seborrheic keratosis Left Upper Back Inflamed, erythematous, hyperkeratotic, stuck-on papule. The lesion(s) noted are treated with LN2 today after discussing the procedure. CRYOTHERAPY SKIN LESION - Left Upper Back Complexity: simple Destruction method: cryotherapy Informed consent: discussed and consent obtained Lesion destroyed using liquid nitrogen: Yes Region frozen until ice ball extended beyond lesion: Yes Cryotherapy cycles: 2 Outcome: patient tolerated procedure well with no complications Post-procedure details: wound care instructions given CRYOTHERAPY SKIN LESION - Left Upper Back 2. Acrochordon Neck - Anterior Fleshy, skin-colored sessile and pedunculated papules. This is a (these are) benign lesion(s), requiring only observation at this time. The benign nature is discussed with the patient, no additional treatment is required at the present. The patient will observe for changes or new symptoms and will contact us for future concerns. Discussed cosmetic removal if desired. 3. Seborrheic keratosis Hyperkeratotic, variably hyperpigmented, stuck on papules. Distributed widely on the trunk and extremities. This is a (these are) benign lesion(s), requiring only observation at this time. The benign nature is discussed with the patient, no additional treatment is required at the present. The patient will observe for changes or new symptoms and will contact us for future concerns. 4. Multiple benign nevi Scattered variably hyperpigmented macules and papules, with generally good symmetry and internal consistency, one to another. Overall benign-appearing. This is a (these are) benign lesion(s), requiring only observation at this time. The benign nature is discussed with the patient, no additional treatment is required at the present. The patient will observe for changes or new symptoms and will contact us for future concerns. 5. Silva angioma Silva-red papule(s).Distributed widely on the trunk and extremities. This is a (these are) benign lesion(s), requiring only observation at this time. The benign nature is discussed with the patient, no additional treatment is required at the present. The patient will observe for changes or new symptoms and will contact us for future concerns. The nature of sun-induced photo-aging and skin cancers is discussed. Sun avoidance, protective clothing, and the use of 30-SPF sunscreens is advised. Observe closely for skin damage/changes, and callif such occurs. Follow-up as noted below or as needed. Chief Complaint: Patient presents with: Full Body Skin Check Subjective and Objective No flowsheet data found. HPI: Shar Weston is a 67 year old female who presents for: Skin check. Desires: Total body skin check in female excluding genitals (patient has periodic examination by PCP and declines this exam) History of skin cancer?: No Areas of particular concern?: Yes: left eyelid and left upper back itchy and bumpy area Past medical history is reviewed. Medication list is reviewed. Physical Exam included: Scalp, face, ears, neck, chest, back, abdomen, bilateral upper extremities, bilateral lower extremities, buttocks, hands, feet, nails and hair Kristen Henderson RN The patient is seen and examined by Rebeca Duke MD and the above note reflects his or her service. Scribed by Diana Pugh MA Attending signature: Rebeca Duke MD This note is completed at 10:11 PM on 06/15/2022 and reflects the services provided at the time of the appointment. I agree with the Chief Complaint, ROS, and Past Histories independently gathered by the clinical sales support associate and the remaining scribed note accurately describes my personal service to the patient. documented in this encounterWood County Hospital07-25-2022 Evaluation note* Diagnosis Onset Date Resolution Status COVID-November 18, 2021 acute Family history of coronary artery disease [facility] Work Phone: 1(301) 145-705204-29-2022 History of Present illness Narrative* RT Tone(R) - 08/23/2021 9:30 AM EDT Radiology Service Progress Note PATIENT NAME: Shar Weston DATE OF SERVICE: August 23, 2021 TIME: 9:52 AM PATIENT IDENTITY VERIFICATION COMPLETED USING TWO (2) IDENTIFIERS: Name and Date of confirmedby patient verbally. FALL SCREENING: Has the patient had 2 falls in the last year or 1 fall with injury or currently using an Ambulatory Assistive Device (Walker, Cane, Wheelchair, Crutches, etc.)? No PATIENT GENDER DATA: Female. status: : No status: NO. PATIENT RELEVANT IMPLANT DATA REVIEWED: Yes RADIOLOGY DEPARTMENT: Mammography PERIPHERAL IV DATA: Not applicable SIGNED BY: RT Tone(R) August 23, 2021 9:52 AM documented in this encounterWood County Hospital04-13-2022 Miscellaneous Notes* Letter - Mammography Coordinator - 08/07/2021 4:41 PM EDT August 07, 2021 PID: [id number] Shar Weston [address] [place] [address] Dear Ms. Weston, Your recent breast imaging exam on 08/07/2021 showed a possible finding that requires additional imaging studies for a complete evaluation. Most such findings are probably benign (not cancer). Your mammogram demonstrates that you have dense breast tissue, which could hide abnormalities. Dense breast tissue, in and of itself, is a relatively common condition. Therefore, this information is not provided to cause undue concern; rather, it is to raise your awareness and promote discussion with your health care provider regarding the presence of dense breast tissue in addition to other riskfactors. If you have a healthcare provider who ordered/prescribed your screening mammogram: Please call [phone] or [phone]: [phone] to schedule an appointment for your additional imaging (if youhave not already done so). If you DO NOT have a healthcare provider (ie you did not have an order/prescription for your screening mammogram): Please call to schedule an appointment for your additional imaging (if you have not already done so). You must have an order/prescription from your physician when calling to schedule your appointment. If your order/prescription is not electronic, you must bring the hard copy with you on the day of your exam to avoid delays. Your imaging studies and reports are kept on file at [facility] as part of your permanent medical record, and are available for your continuing care. Thank you for allowing us to help in meeting your health care needs. Sincerely, Dr. Appiah Interpreting Radiologist [facility] (Additional imaging) [facility] History of Present illness Narrative* Jennifer Pelayo, RT(R) - 08/07/2021 10:50 AM EDT Radiology Service Progress Note PATIENT NAME: Shar Weston DATE OF SERVICE: August 07, 2021 TIME: 10:58 AM PATIENT IDENTITY VERIFICATION COMPLETED USING TWO (2) IDENTIFIERS: Name and Date of confirmedby patient verbally. FALL SCREENING: Has the patient had 2 falls in the last year or 1 fall with injury or currently using an Ambulatory Assistive Device (Walker, Cane, Wheelchair, Crutches, etc.)? No PATIENT GENDER DATA: Female. status: : No status: NO. PATIENT RELEVANT IMPLANT DATA REVIEWED: Not Applicable RADIOLOGY DEPARTMENT: Mammography PERIPHERAL IV DATA: Not applicable SIGNED BY: RT Jw(R) August 07, 2021 10:58 AM documented in [facility] encounter[facility] History of Present illness Narrative* Berkley Odonnell APRN.DIETARY SERVICES DIRECTOR - 08/05/2021 7:36 AM EDT Shar is a 66 year old who presents for an annual gynecologic exam without complaints. Postmenopausal: Yes since 2007 HRT use: No. Last Pap: 06/24/2010 normal HPV: 06/20/2010 negative History of abnormal pap: No Last mammogram: 2013 normal History of abnormal mammogram: No Sexually active: Yes Night sweats: No Vaginal dryness: Yes Mood swings: No OB History T0 L0 SAB0 IAB0 Ectopic0 Multiple0 Live Births0 Cellulose Insulation Helper History LMP: 08/26/2007, Postmenopausal Age at Menarche: Age at First : Age at Menopause: Cellulose Insulation Helper History Comments: Sexual Activity: Yes; Male Contraception: None PAST MEDICAL HISTORY Diagnosis Date Asthma 01/09/2009 Disorder of bone and cartilage, unspecified 05/26/2008 Osteopenia Easy bruising 01/09/2009 Hypermobility syndrome 05/26/2008 Osteoporosis 01/09/2009 Unspecified asthma(493.90) Childhood PAST SURGICAL HISTORY Procedure Laterality Date NONE FAMILY HISTORY Problem Relation Age of Onset Osteoporosis Mother Stroke Mother Heart Mother other (IBS) Mother Heart Father AR at age 50, Headaches other (Gall Bladder) Sister other (Unknown) Brother AR 55 yrs of age stent placed None Brother None Sister SOCIAL HISTORY Social History Tobacco Use Smoking status: Never Smoker Smokeless tobacco: Never Used Vaping Use Vaping Use: Never used Substance Use Topics Alcohol use: Yes Alcohol/week: 17.5 standard drinks Types: 7 Glasses of Wine (5oz) per week Comment: One Glass of Wine with Dinner Drug use: No REVIEW OF SYSTEMS Abdomen: No abdominal pain, nausea, vomiting, diarrhea, or constipation. No bloating, early satiety, indigestion, or increased flatulence. Bladder: No dysuria, gross hematuria, urinary frequency, urinary urgency, or incontinence Breast: No breast lumps, nipple d/c, overlying skin changes, redness or skin retraction Allergies and current medication updated:Yes EXAM: BP 120/60 Ht 5' 4.5 (1.64m) Wt 109 lb 6.4 oz (49.6kg) LMP 08/26/2007 BMI 18.50 kg/(m^2). GENERAL: pleasant, female in no apparent distress HEENT: Normocephalic NECK: Supple BREAST: soft, non-tender, symmetric, no dominant mass, normal nipple-areolar complex, no lymphadenopathy and no nipple discharge, + fibrocystic changes more specifically in the L breast CHEST: Normal inspiratory effort PELVIC: external genitalia normal, normal Bartholin's glands, urethra, [place]'s glands, no vulvar lesions, no cervical lesions, good vaginal support, physiologic discharge present, normal appearing perineal body and perianal region BIMANUAL: uterus normal size, shape and consistency, no adnexal masses and non-tender RECTOVAGINAL: deferred. NEURO: alert and oriented x3,exam grossly non-focal EXTREMITIES: normal ASSESSMENT/PLAN: 1) Health maintenance: Pap done with reflex HPV. Use Yuvafem to improve vaginal dryness. Encourage SBE monthly. Mammogram ordered. Nutrition, exercise and routine health maintenance exams reviewed. Calcium/Vitamin D supplementation information provided. 2) Follow up one year or sooner as needed Ami Morales APRN student TEACHING PROVIDER (Physician/PA/ENGINEERING GROUP LEADER) NOTE OF PERSONAL INVOLVEMENT IN CARE: I have personally seen and examined the patient and performed the medical decision-making components. I have reviewed the Advanced Practice Registered Nurse (ENGINEERING GROUP LEADER) Student's documentation and verified the findings in the note as written. Any additions or changes are noted in bold/italics. Signature: Berkley Odonnell Date: 08/05/2021 Time: 8:16 AM documented in [facility] encounterWood [facility]10-[facility] History of Past illness Narrative* Problem Noted Date Resolved Date Health maintenance examination 01/30/2009 0 08/15/2022 Overview: Cardiolite stress negative in 06-28 Partial colon wtih a BE in 05-02: rec for 10 year repeat Carotid US NL bilaterally in 01-31 Disorder of bone and cartilage, unspecified 04/2901/09/2009 Overview: Osteopenia documented as of this encounter (statuses as of 08/15/2022) [facility] of Past illness Narrative* Problem Noted Date Diagnosed Date Resolved Date Health maintenance examination 01/30/2009 08/15/2022 Overview: Cardiolite stress negative in 3-04 Partial colon wtih a BE in 05-02: rec for 10 year repeat Carotid US NL bilaterally in 01-31 Disorder of bone and cartilage, unspecified 05/26/2008 01/09/2009 Overview: Osteopenia documented as of this encounter (statuses as of 03/01/2023) [facility] of Past illness Narrative* Problem Noted Date Diagnosed Date Resolved Date Health maintenance examination 01/30/2009 08/15/2022 Overview: Cardiolite stress negative in 3-04 Partial colon wtih a BE in 05-02: rec for 10 year repeat Carotid US NL bilaterally in 01-31 Disorder of bone and cartilage, unspecified 05/26/2008 01/09/2009 Overview: Osteopenia documented as of this encounter (statuses as of 08/12/2023) [facility] Narrative* Problem Noted Date Resolved Date Disorder of bone and cartilage, unspecified 04/2901/09/2009 Overview: Osteopenia documented as of this encounter (statuses as of 08/05/2021) [facility] Narrative* Problem Noted Date Resolved Date Disorder of bone and cartilage, unspecified 04/2901/09/2009 Overview: Osteopenia documented as of this encounter (statuses as of 08/08/2021) [facility] Narrative* Problem Noted Date Resolved Date Disorder of bone and cartilage, unspecified 04/2901/09/2009 Overview: Osteopenia documented as of this encounter (statuses as of 08/08/2021) [facility] Narrative* Problem Noted Date Resolved Date Disorder of bone and cartilage, unspecified 04/2901/09/2009 Overview: Osteopenia documented as of this encounter (statuses as of 08/09/2021) [facility] Narrative* Problem Noted Date Resolved Date Disorder of bone and cartilage, unspecified 04/2901/09/2009 Overview: Osteopenia documented as of this encounter (statuses as of 08/24/2021) [facility] Narrative* Problem Noted Date Resolved Date Disorder of bone and cartilage, unspecified 04/2901/09/2009 Overview: Osteopenia documented as of this encounter (statuses as of 06/16/2022) [facility] Narrative* Problem Noted Date Resolved Date Disorder of bone and cartilage, unspecified 04/2901/09/2009 Overview: Osteopenia documented as of this encounter (statuses as of 07/21/2022) [facility] Narrative* Problem Noted Date Resolved Date Disorder of bone and cartilage, unspecified 04/2901/09/2009 Overview: Osteopenia documented as of this encounter (statuses as of 07/29/2022) [facility] Diagnosis Encounter for gynecological examination (general) (routine) without abnormal findings- Primary Encounter for screening for human papillomavirus (HPV) Special screening examination for human papillomavirus (HPV) Pap smear for cervical cancer screening Screening for malignant neoplasm of the cervix Encounter for screening mammogram for breast cancer [facility] encounter [facility] Diagnosis Encounter for screening mammogram for breast cancer [facility]* Diagnosis Abnormal mammogram- Primary Abnormal mammogram, unspecified [facility]* Diagnosis Abnormal mammogram Abnormal mammogram, unspecified documented in this encounter [facility] note* Diagnosis Inflamed seborrheic keratosis- Primary Acrochordon Unspecified hypertrophic and atrophic condition of skin Seborrheic keratosis Other seborrheic keratosis Multiple benign nevi Benign neoplasm of skin, site unspecified Silva angioma Nevus, non-neoplastic documented in this encounter [facility] note* Diagnosis Rash and nonspecific skin eruption- Primary Rash and other nonspecific skin eruption documented in this encounter [facility] note* Diagnosis Encounter for gynecological examination (general) (routine) without abnormal findings- Primary Dense breast tissue Encounter for screening mammogram for malignant neoplasm of breast Other screening mammogram documented in this encounter [facility] note* Diagnosis Dense breast tissue Encounter for screening mammogram for malignant neoplasm of breast Other screening mammogram documented in this encounter [facility] note* Diagnosis Seborrheic keratosis- Primary Other seborrheic keratosis Multiple benign nevi Benign neoplasm of skin, site unspecified Silva angioma Nevus, non-neoplastic Skin cancer screening Screening for malignant neoplasm of the skin documented in this encounter [facility] note* Diagnosis Encounter for screening mammogram for malignant neoplasm of breast- Primary Other screening mammogram documented in this encounter [facility] note* Diagnosis Encounter for gynecological examination (general) (routine) without abnormal findings- Primary Encounter for screening mammogram for breast cancer Osteoporosis without current pathological fracture, unspecified osteoporosis type [facility] Diagnosis Encounter for screening mammogram for malignant neoplasm of breast Other screening mammogram documented in this encounter [facility] note* Diagnosis Osteoporosis without current pathological fracture, unspecified osteoporosis type documented in this encounter [facility] noteNo assessment information availableWPremier Health [facility] Work Phone: Evaluation note* Diagnosis Encounter for gynecological examination (general) (routine) without abnormal findings- Primary Encounter for screening mammogram for breast cancer [facility]* Diagnosis Encounter for gynecological examination (general) (routine) without abnormal findings Encounter for screening mammogram for breast cancer documented in this encounter [facility] for referral (narrative)* Diagnostic Procedure Only (Routine) - Authorized Specialty Diagnoses / Procedures Referred By Maria De Jesus t Referred To Contact [facility] Diagnoses Encounter for screening mammogram for breast cancer Procedures MANOJ SCREENING SCREENING MAMMOGRAPHY BI 2-VIEW BREAST INC [facility] [place] AirBerk[place] APRN.DIETARY SERVICES DIRECTOR [address] [place] [address] [facility] [address] [place] [address] Referral ID Status Reason Start Date Expiration Date Visits Requested Visits Authorized [id number] Authorized Auto-Generat ed Referral 08/05/2021 09/04/2022 1 1 [facility] for referral (narrative)* Diagnostic Procedure Only (Routine) - Closed Specialty Diagnoses / Procedures Referred By Maria De Jesus t Referred To Contact [facility] Diagnoses Encounter for screening mammogram for breast cancer Procedures MANOJ SCREENING SCREENING MAMMOGRAPHY BI 2-VIEW BREAST INC [facility] Health[facility]ELICITAS solares.DIETARY SERVICES DIRECTOR [address] [place] [address] [facility] [address] [place] [address] Referral ID Status Reason Start Date Expiration Date V isits Requested Visits Authorized [id number] Closed Auto-Generate d Referral 08/05/2021 09/04/2022 1 1 [facility] for referral (narrative)* Diagnostic Procedure Only (Routine) - Pending Review Specialty Diagnoses / Procedures Referred By Maria De Jesus chapa Referred To Contact [facility] Diagnoses Abnormal mammogram Procedures MANOJ DIAGNOSTIC RT DIAGNOSTIC MAMMOGRAPHY COMPUTER-AIDED [facility]CJ [facility] Berkley Odonnell APRN.DIETARY SERVICES DIRECTOR [address] [place] [address] [facility] [address] [place] [address] Referral ID Status Reason Start Date Expiration Date Visits Requested Visits Authorized [id number] Pending Review Auto-Generat ed Referral 08/08/2021 09/07/2022 1 1 * Diagnostic Procedure Only (Routine) - Pending Review Specialty Diagnoses / Procedures Referred By Contac t Referred To Contact [facility] Diagnoses Abnormal mammogram Procedures US BREAST LTD RT US BREAST UNI REAL TIME WITH IMAGE LIMITED Berkley Odonnell APRN.DIETARY SERVICES DIRECTOR [address] [place] [address] [facility] [address] [place] [address] Referral ID Status Reason Start Date Expiration Date Visits Requested Visits Authorized [id number] Pending Review Auto-Generat ed Referral 08/08/2021 09/07/2022 1 1 [facility] for referral (narrative)* Diagnostic Procedure Only (Routine) - Closed Specialty Diagnoses / Procedures Referred By Maria De Jesus t Referred To Contact [facility] Diagnoses Abnormal mammogram Procedures US BREAST LTD RT US BREAST UNI REAL TIME WITH IMAGE LIMITED Berkley Odonnell APRN.DIETARY SERVICES DIRECTOR [address] [place] [address] [facility] [address] [place] [address] Referral ID Status Reason Start Date Expiration Date V isits Requested Visits Authorized [id number] Closed Auto-Generate d Referral 08/08/2021 09/07/2022 1 1 [facility] for referral (narrative)* Diagnostic Procedure Only (Routine) - Authorized Specialty Diagnoses / Procedures Referred By Contac t Referred To Contact [facility] Diagnoses Dense breast tissue Encounter for screening mammogram for malignant neoplasm of breast Procedures MANOJ SCREENING W PANCHO SCREENING DIGITAL BREAST TOMOSYNTHESIS BI SCREENING MAMMOGRAPHY BI 2-VIEW BREAST INC CAD Berkely Odonnell APRN.DIETARY SERVICES DIRECTOR [address] [place] [address] [facility] [address] [place] [address] Referral ID Status Reason Start Date Expiration Date Visits Requested Visits Authorized [id number] Authorized Auto-Generat ed Referral 08/15/2022 09/14/2023 1 1 [facility] for referral (narrative)* Diagnostic Procedure Only (Routine) - Closed Specialty Diagnoses / Procedures Referred By Contac t Referred To Contact [facility] Diagnoses Dense breast tissue Encounter for screening mammogram for malignant neoplasm of breast Procedures MANOJ SCREENING W PANCHO SCREENING DIGITAL BREAST TOMOSYNTHESIS BI SCREENING MAMMOGRAPHY BI 2-VIEW BREAST INC CAD Berkley Odonnell APRN.DIETARY SERVICES DIRECTOR [address] [place] [address] [facility] [address] [place] [address] Referral ID Status Reason Start Date Expiration Date V isits Requested Visits Authorized [id number] Closed Auto-Generate d Referral 08/15/2022 09/14/2023 1 1 [facility] for referral (narrative)* Diagnostic Procedure Only (Routine) - Pending Review Specialty Diagnoses / Procedures Referred By Gretchenac t Referred To Contact [facility] Diagnoses Encounter for screening mammogram for malignant neoplasm of breast Procedures MANOJ SCREENING W PANCHO SCREENING DIGITAL BREAST TOMOSYNTHESIS BI SCREENING MAMMOGRAPHY BI 2-VIEW BREAST INC CAD Berkley Odonnell APRN.DIETARY SERVICES DIRECTOR [address] [place] [address] [facility] [address] [place] [address] Referral ID Status Reason Start Date Expiration Date Visits Requested Visits Authorized [id number] Pending Review Auto-Generat ed Referral 10/07/2023 11/05/2024 1 1 [facility] for referral (narrative)* Diagnostic Procedure Only (Routine) - Authorized Specialty Diagnoses / Procedures Referred By Contac t Referred To Contact XR IMAGING Diagnoses Osteoporosis without current pathological fracture, unspecified osteoporosis type Procedures DXA-AXIAL SKELETON Berkley Odonnell APRN.DIETARY SERVICES DIRECTOR [address] [place] [address] [place] [id number] Referral ID Status Reason Start Date Expiration Date Visits Requested Visits Authorized [id number] Authorized Auto-Generat ed Referral 10/15/2023 11/13/2024 1 1 * Diagnostic Procedure Only (Routine) - Authorized Specialty Diagnoses / Procedures Referred By Maria De Jesus t Referred To Contact [facility] Diagnoses Encounter for gynecological examination (general) (routine) without abnormal findings Encounter for screening mammogram for breast cancer Procedures MANOJ SCREENING W PANCHO SCREENING DIGITAL BREAST TOMOSYNTHESIS BI SCREENING MAMMOGRAPHY BI 2-VIEW BREAST INC Berkley Estrada APRN.NAPOLEON [address] [place] [address] [facility] [address] [place] [address] Referral ID Status Reason Start Date Expiration Date Visits Requested Visits Authorized [id number] Authorized Auto-Generat ed Referral 10/15/2023 11/13/2024 1 1 [facility] Diagnostic Procedure Only (Routine) - Closed Specialty Diagnoses / Procedures Referred By Maria De Jesus chapa Referred To Contact [facility] Diagnoses Encounter for screening mammogram for malignant neoplasm of breast Procedures MANOJ SCREENING W PANCHO SCREENING DIGITAL BREAST TOMOSYNTHESIS BI SCREENING MAMMOGRAPHY BI 2-VIEW BREAST INC CAD Berkley Odonnell APRN.DIETARY SERVICES DIRECTOR [address] [place] [address] [facility] [address] [place] [address] Referral ID Status Reason Start Date Expiration Date V isits Requested Visits Authorized [id number] Closed Auto-Generate d Referral 10/07/2023 11/05/2024 1 1 [facility] ([facility]ative)No reason for referral information availableWPremier Health [facility] Work Phone: Reason for visit Narrative* Diagnostic Procedure Only (Routine) - Closed Specialty Diagnoses / Procedures Referred By Maria De Jesus t Referred To Contact [facility] Diagnoses Encounter for screening mammogram for breast cancer Procedures MANOJ SCREENING SCREENING MAMMOGRAPHY BI 2-VIEW BREAST INC CAD [place], ENGINEERING GROUP LEADER.DIETARY SERVICES DIRECTOR [address] [place] [address] [facility] [address] [place] [address] Referral ID Status Reason Start Date Expiration Date V isits Requested Visits Authorized [id number] Closed Auto-Generate d Referral 08/05/2021 09/04/2022 1 1 [facility] for visit Narrative* Diagnostic Procedure Only (Routine) - Closed Specialty Diagnoses / Procedures Referred By Maria De Jesus t Referred To Contact [facility] Diagnoses Dense breast tissue Encounter for screening mammogram for malignant neoplasm of breast Procedures MANOJ SCREENING W PANCHO SCREENING DIGITAL BREAST TOMOSYNTHESIS BI SCREENING MAMMOGRAPHY BI 2-VIEW BREAST INC CAD [place], ENGINEERING GROUP LEADER.DIETARY SERVICES DIRECTOR [address] [place] [address] [facility] [address] [place] [address] Referral ID Status Reason Start Date Expiration Date V isits Requested Visits Authorized [id number] Closed Auto-Generate d Referral 08/15/2022 09/14/2023 1 1 [facility] for visit Narrative* Diagnostic Procedure Only (Routine) - Closed Specialty Diagnoses / Procedures Referred By Maria De Jesus t Referred To Contact [facility] Diagnoses Encounter for screening mammogram for malignant neoplasm of breast Procedures MANOJ SCREENING W PANCHO SCREENING DIGITAL BREAST TOMOSYNTHESIS BI SCREENING MAMMOGRAPHY BI 2-VIEW BREAST INC CAD [place], ENGINEERING GROUP LEADER.DIETARY SERVICES DIRECTOR [address] [place] [address] [facility] [address] [place] [address] Referral ID Status Reason Start Date Expiration Date V isits Requested Visits Authorized [id number] Closed Auto-Generate d Referral 10/07/2023 11/05/2024 1 1 [facility] for visit Narrative* Diagnostic Procedure Only (Routine) - Closed Specialty Diagnoses / Procedures Referred By Contac t Referred To Contact XR IMAGING Diagnoses Osteoporosis without current pathological fracture, unspecified osteoporosis type Procedures DXA-AXIAL SKELETON Blas[place]erkley, ENGINEERING GROUP LEADER.DIETARY SERVICES DIRECTOR [address] [place] [address] [place] [address] Referral ID Status Reason Start Date Expiration Date V isits Requested Visits Authorized [id number] Closed Auto-Generate d Referral 10/15/2023 11/13/2024 1 1 [facility]* Diagnostic Procedure Only (Routine) - Closed Specialty Diagnoses / Procedures Referred By Contac t Referred To Contact [facility] Diagnoses Encounter for gynecological examination (general) (routine) without abnormal findings Encounter for screening mammogram for breast cancer Procedures MANOJ SCREENING W PANCHO SCREENING DIGITAL BREAST TOMOSYNTHESIS BI SCREENING MAMMOGRAPHY BI 2-VIEW BREAST INC CAD Berkley Odonnell, ENGINEERING GROUP LEADER.DIETARY SERVICES DIRECTOR [address] [place] [address] Phone: tel: fax: [facility] [address] [place] [address] Referral ID Status Reason Start Date Expiration Date V isits Requested Visits Authorized [id number] Closed Auto-Generate d Referral 10/15/2023 11/13/2024 1 1 [facility] Chief Complaint and Reason for Visit Chief Complaint HEADACHE/COVID COVID TEST/SYMPTOMS E ORDERS 1 Y FU Reason for Visit COVID-19 Family history of coronary artery disease Chief Complaint Admit Date PAIN IN LEG LOOKING FOR BLOOD CLOT Febru 2024 3:28pm Chief Complaint Admit Date PAIN IN LEG LOOKING FOR BLOOD CLOT Febru el2024 3:28pm L KNEE SPRAIN/SYNOVIAL CYST, EFFUSION. D R TO FAX September 05, 2024 9:00am Family History No Family History Records Found Relationship Condition Age at Onset Recorded Date/T whitney father Cardiac disease Unknown Myocardial infarction Unknown mother Cerebrovascular accident (CVA) Unknown brother Cardiac disease Unknown Advance Directives No Advanced Directives Records Found Advance Directive Response Recorded Date/ Time Living Will No March 11, 020 3:38am Power of Captain Of Guards No March 11, 2020 3:38am Summary Purpose Additional Source Comments Source Comments (unrecognize d section and content) In the event this informatio n is protected by the Federal Confidentiality of Alcohol and Drug Abuse Patient Records regulations: The Federal rules restrict any use of the information to criminally investigate or prosecute any alcohol or drug abuse patient.[facility]In the event this information is protected by the Federal Confidentiality of Alcohol and Drug Abuse Patient Records regulations: The Federal rules restrict any use of the information to criminally investigate or prosecute any alcohol or drug abuse patient.[facility]In the event this information is protected by the Federal Confidentiality of Alcohol and Drug Abuse Patient Records regulations: The Federal rules restrict any use of the information to criminally investigate or prosecute any alcohol or drug abuse patient.[facility]In the event this information is protected by the Federal Confidentiality of Alcohol and Drug Abuse Patient Records regulations: The Federal rules restrict any use of the information to criminally investigate or prosecute any alcohol or drug abuse patient.[facility] HospitalIn the event this information is protected by the Federal Confidentiality of Alcohol and Drug Abuse Patient Records regulations: The Federal rules restrict any use of the information to criminally investigate or prosecute any alcohol or drug abuse patient.[facility] HospitalIn the event this information is protected by the Federal Confidentiality of Alcohol and Drug Abuse Patient Records regulations: The Federal rules restrict any use of the information to criminally investigate or prosecute any alcohol or drug abuse patient.[facility] HospitalIn the event this information is protected by the Federal Confidentiality of Alcohol and Drug Abuse Patient Records regulations: The Federal rules restrict any use of the information to criminally investigate or prosecute any alcohol or drug abuse patient.[facility] HospitalIn the event this information is protected by the Federal Confidentiality of Alcohol and Drug Abuse Patient Records regulations: The Federal rules restrict any use of the information to criminally investigate or prosecute any alcohol or drug abuse patient.[facility] HospitalIn the event this information is protected by the Federal Confidentiality of Alcohol and Drug Abuse Patient Records regulations: The Federal rules restrict any use of the information to criminally investigate or prosecute any alcohol or drug abuse patient.[facility] HospitalIn the event this information is protected by the Federal Confidentiality of Alcohol and Drug Abuse Patient Records regulations: The Federal rules restrict any use of the information to criminally investigate or prosecute any alcohol or drug abuse patient.[facility] HospitalIn the event this information is protected by the Federal Confidentiality of Alcohol and Drug Abuse Patient Records regulations: The Federal rules restrict any use of the information to criminally investigate or prosecute any alcohol or drug abuse patient.[facility] HospitalIn the event this information is protected by the Federal Confidentiality of Alcohol and Drug Abuse Patient Records regulations: The Federal rules restrict any use of the information to criminally investigate or prosecute any alcohol or drug abuse patient.[facility] HospitalIn the event this information is protected by the Federal Confidentiality of Alcohol and Drug Abuse Patient Records regulations: The Federal rules restrict any use of the information to criminally investigate or prosecute any alcohol or drug abuse patient.[facility] HospitalIn the event this information is protected by the Federal Confidentiality of Alcohol and Drug Abuse Patient Records regulations: The Federal rules restrict any use of the information to criminally investigate or prosecute any alcohol or drug abuse patient.[facility] HospitalIn the event this information is protected by the Federal Confidentiality of Alcohol and Drug Abuse Patient Records regulations: The Federal rules restrict any use of the information to criminally investigate or prosecute any alcohol or drug abuse patient.[facility] HospitalIn the event this information is protected by the Federal Confidentiality of Alcohol and Drug Abuse Patient Records regulations: The Federal rules restrict any use of the information to criminally investigate or prosecute any alcohol or drug abuse patient.[facility] HospitalIn the event this information is protected by the Federal Confidentiality of Alcohol and Drug Abuse Patient Records regulations: The Federal rules restrict any use of the information to criminally investigate or prosecute any alcohol or drug abuse patient.[facility] HospitalIn the event this information is protected by the Federal Confidentiality of Alcohol and Drug Abuse Patient Records regulations: The Federal rules restrict any use of the information to criminally investigate or prosecute any alcohol or drug abuse patient.[facility] HospitalIn the event this information is protected by the Federal Confidentiality of Alcohol and Drug Abuse Patient Records regulations: The Federal rules restrict any use of the information to criminally investigate or prosecute any alcohol or drug abuse patient.[facility] HospitalIn the event this information is protected by the Federal Confidentiality of Alcohol and Drug Abuse Patient Records regulations: The Federal rules restrict any use of the information to criminally investigate or prosecute any alcohol or drug abuse patient.[facility] Reason for Visit (unrecogniz ed section and content) Reason Comments Yearly Exam Reason Comments Orders Reason Comments Radiology Mammogram Specialty Diagnoses / Procedures Referred By Contac t Referred To Contact [facility] Diagnoses Abnormal mammogram Procedures US BREAST LTD RT US BREAST UNI REAL TIME WITH IMAGE LIMITED Berkley Odonnell APRN.DIETARY SERVICES DIRECTOR [address] [place] [address] [facility] [address] [place] [address] Referral ID Status Reason Start Date Expiration Date V isits Requested Visits Authorized [id number] Closed Auto-Generate d Referral 08/08/2021 09/07/2022 1 1 Reason Comments Full Body Skin Check Reason Comments Rash Reason Comments Rash Reason Comments Orders Reason Comments Yearly Exam With Mammogram Reason Comments Results Reason Comments [facility] Teams (unrecognized sec tion and content) Supervisory It Specialist Relationship Specialty Start Date End Date Rebeca Briggs MD PCP - General Family Practice 05/05/13 Supervisory It Specialist Relationship Specialty Start Date End Date Rebeca Briggs MD PCP - General Family Practice 05/05/13 Supervisory It Specialist Relationship Specialty Start Date End Date Rebeca Briggs MD PCP - General Family Practice 05/05/13 Supervisory It Specialist Relationship Specialty Start Date End Date Rebeca Briggs MD PCP - General Family Practice 05/05/13 Supervisory It Specialist Relationship Specialty Start Date End Date Rebeca Briggs MD PCP - General Family Practice 05/05/13 Supervisory It Specialist Relationship Specialty Start Date End Date Rebeca Briggs MD PCP - General Family Medicine 05/05/13 Supervisory It Specialist Relationship Specialty Start Date End Date Rebeca Briggs MD PCP - General Family Medicine 05/05/13 Supervisory It Specialist Relationship Specialty Start Date End Date Rebeca Briggs MD PCP - General Family Medicine 05/05/13 Supervisory It Specialist Relationship Specialty Start Date End Date Rebeca Briggs MD PCP - General Family Medicine 05/05/13 Supervisory It Specialist Relationship Specialty Start Date End Date Rebeca Briggs MD PCP - General Family Medicine 05/05/13 Supervisory It Specialist Relationship Specialty Start Date End Date Rebeca Briggs MD PCP - General Family Medicine 05/05/13 Supervisory It Specialist Relationship Specialty Start Date End Date Rebeca Briggs MD PCP - General Family Medicine 05/05/13 Supervisory It Specialist Relationship Specialty Start Date End Date Rebeca Briggs MD PCP - General Family Medicine 05/05/13 Supervisory It Specialist Relationship Specialty Start Date End Date Rebeca Briggs MD PCP - General Family Medicine 05/05/13 Supervisory It Specialist Relationship Specialty Start Date End Date Rebeca Briggs MD PCP - General Family Medicine 05/05/13 Supervisory It Specialist Relationship Specialty Start Date End Date Rebeca Briggs MD PCP - General Family Medicine 05/05/13 Supervisory It Specialist Relationship Specialty Start Date End Date Rebeca Briggs MD PCP - General Family Medicine 05/05/13 Team Status: Active Member Role Status Dates Dr. Marly Cox MD Primary Care Provider Active Team Status: Inactive Member Role Status Dates Dr. Marly Cox MD Primary Care Provider Active Start: June 24, 2024 End: June 24, 2024 JERI Huber Attending Provider Active Start : June 24, 2024 End: June 24, 2024 JERI Huber Referring Provider Active Start : June 24, 2024 End: June 24, 2024 Team Status: Active Member Role Status Dates Dr. Marly Cox MD Primary Care Provider Active Start: June 24, 2024 Dr. Daniel Jacobo MD Attending Provider Active S tart: June 24, 2024 JERI Huber Referring Provider Active Start : June 24, 2024 Team Status: Inactive Member Role Status Dates Dr. Marly Cox MD Primary Care Provider Active Start: September 05, 2024 End: September 05, 2024 JERI Huber Attending Provider Active Start : September 05, 2024 End: September 05, 2024 JERI Huber Referring Provider Active Start : September 05, 2024 End: September 05, 2024 Supervisory It Specialist Relationship Specialty Start Date End Date Rebeca Briggs MD PCP - General Family Medicine 05/05/13 Supervisory It Specialist Relationship Specialty Start Date End Date Rebeca Briggs MD PCP - General Family Medicine 05/05/13 Goals (unrecognized section and content) Goals may be documented in a n alternate sectionGoals may be documented in an alternate sectionGoals may be documented in an alternate section INFORMATION SOURCE (unrecogn ized section and content) DATE CREATED AUTHOR 09/11/2024 [facility] DATE CREATED AUTHOR AUTHOR'S ORGANIZ ATION 10/19/[address] [facility] FOR RECORDS PERTAINING TO PATIENTS WHO ARE OR HAVE BEEN ENROLLED IN A CHEMICAL DEPENDENCY/SUBSTANCEABUSE PROGRAM, SOME INFORMATION MAY BE OMITTED. This clinical summary was aggregated from multiple sources. Caution should be exercised in using it in the provision of clinical care. This summary normalizes information from multiple sources, and as a consequence, information in this document may materially change the coding, format and clinical context of patient data. In addition, data may be omitted in some cases. CLINICAL DECISIONS SHOULD BE BASED ON THE PRIMARY CLINICAL RECORDS. [facility] provides no warranty or guarantee of the accuracy or completeness of information in this document.
== END | disposition home or self-care (01) ==
LOC: MFPLAB 10:46
PROVIDERS: PCP Family Medicine; Visit Provider Family Medicine
DX: Z00.00 Encounter for general adult medical examination without abnormal findings (principal); Z13.220 Encounter for screening for lipoid disorders; Z13.1 Encounter for screening for diabetes mellitus; R42 Dizziness and giddiness
CPT/HCPCS: 36415; 80053; 80061; 82306; 83036; 84443; 85025